=== PATIENT | female | born 1975 | race Caucasian/White ===

== ENCOUNTER 2020-08-19 13:55 | Outpatient (REF) | payer MEDICARE, OTHER, SELFPAY ==
[2020-08-20 11:56] LABS: BV Int Neg Control Negative (Negative); BV Int Pos Control Positive (Positive)
[2020-08-21 21:42] LABS: C. trachomatis RNA TMA NOT DETECTED (NOT DETECTED); N. gonorrhoeae RNA TMA NOT DETECTED (NOT DETECTED)
[2020-08-22 23:57] LABS: HPV mRNA E6/E7 rflx Not Detected (Not Detected)
== END 2020-08-19 13:56 | disposition home or self-care (01) ==
LOC: HO.LAB 13:55
PROVIDERS: PCP Family Medicine; Visit Provider Advanced Practice Midwife
DX: Z12.4 Encounter for screening for malignant neoplasm of cervix (principal); N89.8 Other specified noninflammatory disorders of vagina; L81.9 Disorder of pigmentation, unspecified
CPT/HCPCS: 36415; 87480; 87491; 87510; 87591; 87624; 87660; 88141; 88142; 99202

== ENCOUNTER 2020-08-29 13:57 | Outpatient (REF) | payer MEDICARE, OTHER, SELFPAY | END 2020-08-29 13:58 | disposition home or self-care (01) | LOC: HO.LNP 13:57 | PROVIDERS: PCP Family Medicine; Visit Provider Obstetrics & Gynecology | DX: N90.4 Leukoplakia of vulva (principal) | CPT/HCPCS: 56605 ==

== ENCOUNTER 2020-08-30 10:42 | Outpatient (REF) | payer MEDICARE, OTHER, SELFPAY | END 2020-08-30 10:43 | disposition home or self-care (01) | LOC: HO.LAB 10:42 | PROVIDERS: Visit Provider Obstetrics & Gynecology | DX: N90.4 Leukoplakia of vulva (principal) | CPT/HCPCS: 88305; 88312 ==

== ENCOUNTER → 2020-09-12 12:10 | Outpatient (BNVA) | payer MEDICARE, OTHER, SELFPAY | PROVIDERS: PCP Family Medicine; Visit Provider Obstetrics & Gynecology | DX: Z13.89 Encounter for screening for other disorder (principal) | CPT/HCPCS: Q3014 ==

== ENCOUNTER 2021-11-27 11:57 | Outpatient (REF) | payer MEDICARE, OTHER, SELFPAY ==
[2021-11-27 13:18] LABS: MANUAL DIFF FLAG NO
[2021-11-27 13:30] LABS: Basophils Percent Auto 0.4 % (0-2); Eosinophils Absolute Auto 0.2 X10*3/uL (0.0-0.4); Eosinophils Percent Auto 2.5 % (0-4); Hematocrit 40.7 % (37.0-47.0); Hemoglobin 13.8 g/dl (12.0-16.0); Imm Gran Abs Auto 0.02 X10*3/uL (0.00-0.03); Imm Gran Pct Auto 0.3 % (0.0-0.4); Lymphocytes Absolute Auto 2.2 X10*3/uL (1.2-4.9); Lymphocytes Percent Auto 32.1 % (20-40); Mean Corpuscular HGB Conc 33.9 g/dl (31.0-35.0); Mean Corpuscular Hemoglobin 29.4 pg (27.0-33.0); Mean Corpuscular Volume 86.6 fL (80.0-98.0); Mean Platelet Volume 11.4 fL (9.4-12.3); Monocytes Absolute Auto 0.5 X10*3/uL (0.1-1.2); Monocytes Percent Auto 6.9 % (2-11); Neutrophils Percent Auto 57.8 % (45-73); Platelet Count 227 X10*3/uL (160-400); Red Cell Distribution Width 12.1 % (11.0-16.0); White Blood Count 6.9 X10*3/uL (4.8-10.8)
[2021-11-27 13:52] LABS: Alanine Aminotransferase 33 U/L (0-31); Albumin Level 4.6 g/dL (3.5-5.0); Alkaline Phosphatase 91 U/L (39-117); Anion Gap 13 (12-20); Aspartate Amino Transferase 27 U/L (5-31); Bilirubin Total 0.6 mg/dL (0.0-1.0); Blood Urea Nitrogen 11 mg/dL (9-16); Calcium 9.8 mg/dL (8.4-10.2); Carbon Dioxide 24 mmol/L (22-29); Chloride 106 mmol/L (96-108); Estimated Glomerular Filt Rate > 60; Glucose Random 109 mg/dL (60-115); Potassium 4.5 mmol/L (3.3-5.1); Sodium 138 mmol/L (135-145); Total Protein 7.3 g/dL (6.5-8.0)
== END 2021-11-27 11:58 | disposition home or self-care (01) ==
LOC: HO.LAB 11:57
PROVIDERS: PCP Family Medicine; Referring Provider Family Medicine; Visit Provider Nurse Practitioner
DX: Z01.818 Encounter for other preprocedural examination (principal); K59.04 Chronic idiopathic constipation
CPT/HCPCS: 36415; 80053; 85025; 99202

== ENCOUNTER 2022-09-08 08:52 | Day surgery (SDC) | payer MEDICARE, MEDICAID, SELFPAY ==
--- NOTE | 2022-09-07 11:57 | HO.ANESPROP2 ---
Documented by User: Liliane Zayas NP 09/07/22 11:57 HPI - Anesthesia Eval Consult details Narrative: 47yo F for Colonoscopy PMFSH Active Problems Active Problems: All Active Problems (Updated 09/02/22 @ 14:54 by Larissa Riley, RN) Vaginal itching (Acute) Hypopigmented skin lesion (Acute) Vulvar leukoplakia (Acute) Lichen sclerosus (Acute) Depression with anxiety (Acute) Vitamin B12 deficiency (Acute) Alopecia (Acute) Colon cancer screening (Acute) Chronic idiopathic constipation (Acute) GERD (gastroesophageal reflux disease) (Acute) HTN (hypertension) (Acute) Dyslipidemia (Acute) Diabetes (Acute) Cervical cancer screening (Acute) Past Medical History Medical History (Updated 09/02/22 @ 14:54 by Larissa Riley RN) Cervical cancer screening Diabetes Dyslipidemia GERD (gastroesophageal reflux disease) Hiatal hernia HTN (hypertension) Menometrorrhagia Osteoarthritis Family History Family History Father Diabetes HTN (hypertension) Maternal Grandfather Prostate cancer Surgical History Surgical History (Updated 09/02/22 @ 14:54 by Larissa Riley RN) History of section History of esophagogastroduodenoscopy (EGD) Tubal ligation status Social History Social History Alcohol intake: never Patient Tobacco Use Status: Never used Tobacco Gender identity: Female Meds Allergies Allergy/AdvReac Type Severity Reaction Status Date / Time No Known Allergies Allergy Verified 09/02/22 14:54 Home Medications Medication Instructions Recorded Confirmed Last Taken Type acetaminophen 650 mg 650 mg PO Q12H 08/19/20 Unknown History tablet,extended release clotrimazole 1 % topical cream 1 appl topical BID 08/19/20 09/02/22 Unknown History ergocalciferol (vitamin D2) 10 mcg 10 mcg PO DAILY 08/19/20 09/02/22 Unknown History (400 unit) tablet fluoxetine 20 mg tablet 20 mg PO DAILY 08/19/20 09/02/22 Unknown History hydrocortisone 1 % topical cream 1 appl topical QID PRN Rash 08/19/20 09/02/22 Unknown History hydroxyzine HCl 25 mg tablet 25 mg PO BID PRN as directed 08/19/20 09/02/22 Unknown History lisinopril 30 mg tablet 30 mg PO DAILY 08/19/20 09/02/22 Unknown History omeprazole 20 mg tablet,delayed 20 mg PO DAILY 08/19/20 09/02/22 Unknown History release tizanidine 2 mg capsule 2 mg PO BEDTIME 08/19/20 09/02/22 Unknown History trazodone 100 mg tablet 100 mg PO BEDTIME 08/19/20 09/02/22 Unknown History cholecalciferol (vitamin D3) 25 1 tab PO DAILY 09/02/22 09/02/22 Unknown History mcg (1,000 unit) capsule (Vitamin D3) metformin 500 mg tablet 1 tab PO QPM 09/02/22 09/02/22 Unknown History naloxone 4 mg/actuation nasal spray intranasal 09/02/22 Unknown History Exam Exam Date and Time: September 07, 2022 115 Assessment and Plan Assessment Anesthesia Assessment: Chart Reviewed Documented by User: Garland Urena MD 09/08/22 17:54 [facility] Past Medical History Medical History (Updated 09/02/22 @ 14:54 by Larissa Riley, RK) Cervical cancer screening Diabetes Dyslipidemia GERD (gastroesophageal reflux disease) Hiatal hernia HTN (hypertension) Menometrorrhagia Osteoarthritis Functional capacity: independent ambulation Family History Family History Father Diabetes HTN (hypertension) Maternal Grandfather Prostate cancer Family history of problems with anesthesia: No Surgical History Surgical History (Updated 09/02/22 @ 14:54 by Larissa Riley RN) History of section History of esophagogastroduodenoscopy (EGD) Tubal ligation status History of Problems with Anesthesia: No Social History Social History Alcohol intake: never Patient Tobacco Use Status: Never used Tobacco Gender identity: Female Meds Allergies Allergy/AdvReac Type Severity Reaction Status Date / Time No Known Allergies Allergy Verified 09/02/22 14:54 Home Medications Medication Instructions Recorded Confirmed Last Taken Type acetaminophen 650 mg 650 mg PO Q12H 08/19/20 Unknown History tablet,extended release clotrimazole 1 % topical cream 1 appl topical BID 08/19/20 09/02/22 Unknown History ergocalciferol (vitamin D2) 10 mcg 10 mcg PO DAILY 08/19/20 09/02/22 Unknown History (400 unit) tablet fluoxetine 20 mg tablet 20 mg PO DAILY 08/19/20 09/02/22 Unknown History hydrocortisone 1 % topical cream 1 appl topical QID PRN Rash 08/19/20 09/02/22 Unknown History hydroxyzine HCl 25 mg tablet 25 mg PO BID PRN as directed 08/19/20 09/02/22 Unknown History lisinopril 30 mg tablet 30 mg PO DAILY 08/19/20 09/02/22 Unknown History omeprazole 20 mg tablet,delayed 20 mg PO DAILY 08/19/20 09/02/22 Unknown History release tizanidine 2 mg capsule 2 mg PO BEDTIME 08/19/20 09/02/22 Unknown History trazodone 100 mg tablet 100 mg PO BEDTIME 08/19/20 09/02/22 Unknown History cholecalciferol (vitamin D3) 25 1 tab PO DAILY 09/02/22 09/02/22 Unknown History mcg (1,000 unit) capsule (Vitamin D3) metformin 500 mg tablet 1 tab PO QPM 09/02/22 09/02/22 Unknown History naloxone 4 mg/actuation nasal spray intranasal 09/02/22 Unknown History Exam Airway Mallampati Class: III Neck ROM: Full Loose/Missing/Broken Teeth: Yes Heart: S1,S2 Lungs: b/l breath sounds Assessment and Plan Assessment Anesthesia Assessment: Anesthesia Plan Discussed Final Anesthetic Review Family History of Problems with Anesthesia: No History of Problems with Anesthesia: No NPO: Yes ASA Class: II Final Preanesthetic Review: Meds/Allgs Chart Reviewed, Consent Obtained/Reviewed and Anes Risks/Benef Reviewed Patient Risk: Intermediate Procedure Risk: Intermediate Anesthetic Plan Anesthetic Plan: MAC: Disposition: Standard PACU
--- NOTE | 2022-09-08 09:38 | MHC.SHP ---
Pre-Procedural Eval Section A Date of Service: 09/08/22 The patient is an INPATIENT: No The History & Physical has been completed within 30 days and I have reviewed it.: No Section B Chief Complaint: screening, chronic idiopathic constipation Relevant Family History (Specify if Yes): No Relevant Social History: None Present Medications: see Short Stay Collaborative assessment Medical History: Significant History (Diabetes Hypertension High cholesterol Generalized osteoarthritis of multiple sites Vitamin B12 deficiency Depression/anxiety GERD Menometrorrhagia) History of Previous Operations: Relevant previous surgery/procedure and date(s) (hx of EGD, C section and tubal ligation) Allergies: Allergies Allergy/AdvReac Type Severity Reaction Status Date / Time No Known Allergies Allergy Verified 09/02/22 14:54 Review of Systems Sugical H&P ROS: Negative: Constitution, Cardiovascular, Respiratory and Gastrointestinal Exam Surgical H&P Exam: Normal: Heart, Normal: Lungs, Normal: Extremities and Normal: Abdomen Plan Diagnosis/Plan: Unchanged I have reviewed the history and physical and performed a pertinent physical examination on my patient. No changes have occurred unless specified. Time Spent With Patient Time: Total time managing care of this patient today ____ minutes.
[2022-09-08 09:44] LABS: Glucose, Whole Blood 198 mg/dL (60-115)
[2022-09-08 09:45] VITALS: BMI 32.4
[2022-09-08 09:49] VITALS: BP 133/90; PULSE 65; RESP 16; TEMP 36.3; O2SAT 97
[2022-09-08] MEDS: Lactated Ringers 1,000 ML 100 ML IVCONT (09:53)
--- NOTE | 2022-09-08 10:27 | PM.OP ---
Brief Operative Note Date of Service: 09/08/22 Pre-op diagnosis: Colon cancer screening (1st colonoscopy) Post-op diagnosis: other (COLON POLYPS, DIVERTICULOSIS, HEMORRHOIDS) Procedure: COLONOSCOPY TO CECUM WITH BIOPSIES AND SNARE POLYPECTOMY Surgeon: Reuben Walls MD Anesthesia: MAC Was an Commercial Center Manager used for this Procedure?: Yes Commercial Center Manager: Dianne Tucker Estimated blood loss (mL): 0 Pathology: other ( A :Cecal Polyp B:Random Biopsy right colon for microscopic colitis) Condition: stable Disposition: PACU
--- NOTE | 2022-09-08 10:27 | W.PM.OPN ---
Operative Note Operative Note Date of Service: 09/08/22 Narrative: Pre-op diagnosis: Colon cancer screening (1st colonoscopy) Post-op diagnosis:?other (COLON POLYPS, DIVERTICULOSIS, HEMORRHOIDS) Surgeon: Reuben Walls MD Anesthesia:?MAC COLONOSCOPY TILL CECUM WITH BIOPSIES AND SNARE POLYPECTOMY Consent: Indications for the procedure and potential complications of bleeding, perforation, reaction to medications and missed diagnosis were discussed with the patient and informed consent was obtained. Instrument: Olympus PCF H 190 L variable stiffness pediatric colonoscope Monitoring: Vital signs and clinical assessment, intermittent blood pressure monitoring, continuous EKG monitoring, Pulse oximetry and Carbon Dioxide monitoring were done throughout the procedure. Colon withdrawl time was 30 minutes. Procedure: The patient was placed in the left lateral decubitis position and pre-procedure medications were administered. After a digital rectal examination of the ano-rectum, the video colonoscope was inserted into the rectum and advanced through the colon to the cecum. The colonoscope was slowly withdrawn in a retrograde panoramic fashion and the colon mucosa was carefully examined including a retroflexed view of the rectum. Findings and interventions are described below. Procedure Difficulty: Without difficulty Findings: Terminal Ileum: Not evaluated Cecum: Three 8 to 12 mm sessile polyps - removed with a hot snare and cold bx Ascending Colon: Normal Transverse Colon: Normal Descending Colon: Moderate diverticulosis Sigmoid Colon: Moderate diverticulosis Rectum: Normal Ano-rectum: Moderate internal hemorrhoids Colon preparation: Good after copious irrigation Impression and Post Procedure Diagnosis: Colonoscopy Findings: Three small to medium sized polyps removed Moderate diverticulosis seen in the left colon Moderate hemorrhoids on retroflexed exam. Plan: Await pathology results Patient has an appointment on 09/22/22 in the GI Clinic with Beatrice Nichols NP. Repeat Colonoscopy interval based on path results - in 3 years if polyps are adenomatous and 10 years if polyps are hyperplastic. Above findings were reviewed with the patient and colon polyps and diverticulosis handouts were given in the discharge area
[2022-09-08 11:23] VITALS: BP 104/66; PULSE 77; RESP 15; TEMP 36.8; O2SAT 98
[2022-09-08 11:38] VITALS: BP 110/73; PULSE 69; RESP 18; TEMP 37.1; O2SAT 98
== END 2022-09-08 12:15 | disposition home or self-care (01) ==
PROVIDERS: PCP Family Medicine; Visit Provider Internal Medicine Gastroenterology
PROC: 0DJD8ZZ Inspection of Lower Intestinal Tract, Via Natural or Artificial Opening Endoscopic (ICD-10-PCS; CPT 45378; principal; 2022-09-08 10:20)
DX: Z12.11 Encounter for screening for malignant neoplasm of colon (principal); D12.0 Benign neoplasm of cecum; K57.30 Diverticulosis of large intestine without perforation or abscess without bleeding; K64.8 Other hemorrhoids; K59.04 Chronic idiopathic constipation; K21.9 Gastro-esophageal reflux disease without esophagitis; I10 Essential (primary) hypertension; E11.9 Type 2 diabetes mellitus without complications; E78.00 Pure hypercholesterolemia, unspecified; M15.9 Polyosteoarthritis, unspecified; F41.8 Other specified anxiety disorders; Z79.84 Long term (current) use of oral hypoglycemic drugs; Z79.899 Other long term (current) drug therapy
CPT/HCPCS: 45385; 45380; 82947; 88305

== ENCOUNTER 2022-09-22 10:19 | Outpatient (REF) | payer MEDICARE, MEDICAID, SELFPAY ==
[2022-09-22 11:06] LABS: MANUAL DIFF FLAG NO
[2022-09-22 11:59] LABS: Basophils Percent Auto 0.6 % (0-2); Eosinophils Absolute Auto 0.2 X10*3/uL (0.0-0.4); Eosinophils Percent Auto 3.5 % (0-4); Hematocrit 41.8 % (37.0-47.0); Hemoglobin 14.2 g/dl (12.0-16.0); Imm Gran Abs Auto 0.02 X10*3/uL (0.00-0.03); Imm Gran Pct Auto 0.3 % (0.0-0.4); Lymphocytes Absolute Auto 2.2 X10*3/uL (1.2-4.9); Lymphocytes Percent Auto 35.2 % (20-40); Mean Corpuscular Volume 85.3 fL (80.0-98.0); Mean Platelet Volume 11.9 fL (9.4-12.3); Monocytes Absolute Auto 0.4 X10*3/uL (0.1-1.2); Monocytes Percent Auto 6.6 % (2-11); Neutrophils Absolute Auto 3.3 x10*3/uL (2.0-8.3); Neutrophils Percent Auto 53.8 % (45-73); Platelet Count 231 X10*3/uL (160-400); White Blood Count 6.2 X10*3/uL (4.8-10.8)
[2022-09-22 12:31] LABS: Alanine Aminotransferase 52 U/L (0-31); Albumin Level 4.6 g/dL (3.5-5.0); Alkaline Phosphatase 135 U/L (39-117); Anion Gap 17 (12-20); Aspartate Amino Transferase 28 U/L (5-31); Bilirubin Total 0.5 mg/dL (0.0-1.0); Blood Urea Nitrogen 10 mg/dL (9-16); Calcium 9.7 mg/dL (8.4-10.2); Carbon Dioxide 23 mmol/L (22-29); Chloride 104 mmol/L (96-108); Cholesterol 229 mg/dL; Estimated Glomerular Filt Rate > 60; Glucose Random 248 mg/dL (60-115); HDL Cholesterol 44 mg/dL; LDL Cholesterol Calculated 152 mg/dl; Potassium 4.8 mmol/L (3.3-5.1); Sodium 139 mmol/L (135-145); Total Protein 7.2 g/dL (6.5-8.0); Triglycerides 167 mg/dL
[2022-09-22 12:47] LABS: TSH reflex Free T4 2.16 uIU/mL (0.32-4.0)
[2022-09-22 13:25] LABS: Estimated Average Glucose 192 mg/dL; Hemoglobin A1c % 8.3 %
== END 2022-09-22 10:20 | disposition home or self-care (01) ==
LOC: HO.LAB 10:19
PROVIDERS: PCP Family Medicine; Visit Provider Nurse Practitioner
DX: K59.04 Chronic idiopathic constipation (principal); K21.9 Gastro-esophageal reflux disease without esophagitis; D12.6 Benign neoplasm of colon, unspecified; E78.5 Hyperlipidemia, unspecified; I10 Essential (primary) hypertension
CPT/HCPCS: 36415; 80053; 80061; 83036; 84443; 85025; 99212

== ENCOUNTER 2023-02-03 13:13 | Outpatient (REF) | payer MEDICARE, MEDICAID, SELFPAY ==
[2023-02-06 00:59] LABS: HPV mRNA E6/E7 rflx Not Detected (Not Detected)
== END 2023-02-03 13:14 | disposition home or self-care (01) ==
LOC: HO.LNP 13:13
PROVIDERS: PCP Family Medicine; Visit Provider Obstetrics & Gynecology
DX: Z12.4 Encounter for screening for malignant neoplasm of cervix (principal); Z11.51 Encounter for screening for human papillomavirus (HPV); N95.0 Postmenopausal bleeding; L90.0 Lichen sclerosus et atrophicus
CPT/HCPCS: 87624; 88142; 99212

== ENCOUNTER 2023-02-09 13:30 | Outpatient (REF) | payer MEDICARE, MEDICAID, SELFPAY ==
--- NOTE | ~2023-02-09 | US_ITS ---
EXAM: Pelvic Ultrasound CLINICAL INDICATION: Postmenopausal bleeding COMPARISON: Pelvic ultrasound 01/20/2012 TECHNIQUE: The pelvis was evaluated using transabdominal and transvaginal imaging. FINDINGS: The uterus measures 7.7 x 4.2 x 5.9 cm in longitudinal by AP by transverse dimension. The endometrial stripe is not thickened and measures 0.3 cm. A small amount of fluid is noted within the cervical canal. Nabothian cyst appreciated within the cervix. The left ovary measures approximately 2.1 x 1.2 x 1.5 cm and is normal. The right ovary measures approximately 3.3 x 1.7 x 1.7 cm and contains a suspected 1.8 cm cyst. There is no free fluid in the pelvis. US/US pelvic and transvaginal IMPRESSION: 1. Normal thickness endometrial stripe. 2. Small amount of fluid is noted within the cervical canal. 3. Suspected 1.8 cm right ovarian cyst.
== END 2023-02-09 13:31 | disposition home or self-care (01) ==
LOC: HO.US 13:30
PROVIDERS: PCP Family Medicine; Visit Provider Obstetrics & Gynecology
DX: N95.0 Postmenopausal bleeding (principal)
CPT/HCPCS: 76830; 76856

== ENCOUNTER 2023-02-19 12:15 | Outpatient (REF) | payer MEDICARE, MEDICAID, SELFPAY ==
--- NOTE | ~2023-02-19 | MM_ITS ---
EXAMINATION: MM SCREENING DIGITAL BREAST TOMOSYNTHESIS, BILATERAL CLINICAL INFORMATION: Screening. Asymptomatic. The lifetime risk of breast cancer based on the Tyrer-Cuzick Model is 7%. COMPARISON: Mammography: This study is compared with prior exams dating back to 2013. TECHNIQUE: Digital breast tomosynthesis is performed in both the craniocaudal and mediolateral oblique views along with computer-aided detection (CAD). Synthesized 2D images are generated from the tomosynthesis. FINDINGS: There are scattered areas of fibroglandular density (ACR BI-RADS breast composition Category b). There are no significant masses, abnormal calcifications, or other abnormalities. MM/MM tomosynthesis screening BI IMPRESSION: No mammographic evidence of malignancy. ASSESSMENT: BI-RADS BI-RADS 1 - Negative RECOMMENDATION: Routine annual mammography screening. 1 year F/U This examination should not preclude the clinical evaluation of a suspicious palpable abnormality. This patient's information was entered into a reminder system with a target due date for their next mammogram.
== END 2023-02-19 12:16 | disposition home or self-care (01) ==
LOC: HO.MAMMO 12:15
PROVIDERS: PCP Family Medicine; Visit Provider Obstetrics & Gynecology
DX: Z12.31 Encounter for screening mammogram for malignant neoplasm of breast (principal)
CPT/HCPCS: 77063; 77067

== ENCOUNTER → 2023-02-19 13:00 | Outpatient (BNV) | payer MEDICARE, MEDICAID, SELFPAY | PROVIDERS: PCP Family Medicine; Visit Provider Radiology Diagnostic Radiology | DX: Z12.31 Encounter for screening mammogram for malignant neoplasm of breast (principal) | CPT/HCPCS: 77063; 77067 ==

== ENCOUNTER 2023-02-24 | Outpatient (REF) | payer MEDICARE, MEDICAID, SELFPAY ==
[2023-02-24 12:02] LABS: Estimated Average Glucose 229 mg/dL; Hemoglobin A1c % 9.6 %
[2023-02-24 12:32] LABS: Creatinine Urine 280.11 mg/dL; Microalbum/Creatinine Ratio Ur 9.2 ug/mg cr
[2023-02-24 12:40] LABS: Alanine Aminotransferase 33 U/L (0-31); Albumin Level 4.1 g/dL (3.5-5.0); Alkaline Phosphatase 130 U/L (39-117); Anion Gap 14 (12-20); Aspartate Amino Transferase 20 U/L (5-31); Bilirubin Total 0.7 mg/dL (0.0-1.0); Blood Urea Nitrogen 11 mg/dL (9-16); Calcium 9.4 mg/dL (8.4-10.2); Carbon Dioxide 21 mmol/L (22-29); Chloride 106 mmol/L (96-108); Cholesterol 207 mg/dL; Estimated Glomerular Filt Rate > 60; Glucose Random 247 mg/dL (60-115); HDL Cholesterol 44 mg/dL; LDL Cholesterol Calculated 134 mg/dl; Potassium 4.3 mmol/L (3.3-5.1); Sodium 137 mmol/L (135-145); TSH reflex Free T4 1.06 uIU/mL (0.32-4.0); Triglycerides 148 mg/dL
[2023-02-24 13:34] LABS: Folate 8.4 ng/mL (> or = 4.0); Vitamin B12 1113 pg/mL (200-900)
== END 2023-02-24 00:01 | disposition home or self-care (01) ==
LOC: HO.HHCL
PROVIDERS: Visit Provider Family Medicine
DX: E11.9 Type 2 diabetes mellitus without complications (principal); I10 Essential (primary) hypertension
CPT/HCPCS: 36415; 80053; 80061; 82043; 82607; 82746; 83036; 84443

== ENCOUNTER 2023-03-26 10:12 | Outpatient (REF) | payer MEDICARE, MEDICAID, SELFPAY ==
[2023-03-26 11:21] LABS: MANUAL DIFF FLAG NO
[2023-03-26 11:44] LABS: Basophils Absolute Auto 0.1 X10*3/uL (0.0-0.2); Basophils Percent Auto 0.7 % (0-2); Eosinophils Absolute Auto 0.2 X10*3/uL (0.0-0.4); Eosinophils Percent Auto 2.3 % (0-4); Hematocrit 42.6 % (37.0-47.0); Hemoglobin 14.3 g/dl (12.0-16.0); Imm Gran Abs Auto 0.01 X10*3/uL (0.00-0.03); Imm Gran Pct Auto 0.1 % (0.0-0.4); Lymphocytes Absolute Auto 2.2 X10*3/uL (1.2-4.9); Lymphocytes Percent Auto 30.2 % (20-40); Mean Corpuscular HGB Conc 33.6 g/dl (31.0-35.0); Mean Corpuscular Hemoglobin 29.2 pg (27.0-33.0); Mean Corpuscular Volume 87.1 fL (80.0-98.0); Mean Platelet Volume 11.9 fL (9.4-12.3); Monocytes Absolute Auto 0.4 X10*3/uL (0.1-1.2); Monocytes Percent Auto 5.9 % (2-11); Neutrophils Absolute Auto 4.5 x10*3/uL (2.0-8.3); Neutrophils Percent Auto 60.8 % (45-73); Platelet Count 248 X10*3/uL (160-400); Red Blood Count 4.89 X10*6/uL (4.20-5.50); Red Cell Distribution Width 12.5 % (11.0-16.0); White Blood Count 7.4 X10*3/uL (4.8-10.8)
[2023-03-26 12:44] LABS: Alanine Aminotransferase 25 U/L (0-31); Albumin Level 4.5 g/dL (3.5-5.0); Alkaline Phosphatase 98 U/L (39-117); Anion Gap 11 (12-20); Aspartate Amino Transferase 18 U/L (5-31); Bilirubin Total 0.3 mg/dL (0.0-1.0); Blood Urea Nitrogen 15 mg/dL (9-16); Carbon Dioxide 28 mmol/L (22-29); Chloride 105 mmol/L (96-108); Estimated Glomerular Filt Rate > 60; Glucose Random 123 mg/dL (60-115); Potassium 4.5 mmol/L (3.3-5.1); Sodium 139 mmol/L (135-145); Total Protein 7.5 g/dL (6.5-8.0)
[2023-03-30 17:08] LABS: Lyme Abs Screen <0.90 index
[2023-04-02 03:03] LABS: Aldolase 3.7 U/L (<=8.1)
== END 2023-03-26 10:13 | disposition home or self-care (01) ==
LOC: HO.HHCL 10:12
PROVIDERS: Visit Provider Family Medicine
DX: R51.9 Headache, unspecified (principal)
CPT/HCPCS: 36415; 80053; 82085; 82550; 85025; 86617; 86618

== ENCOUNTER 2023-05-05 13:40 | Outpatient (REF) | payer MEDICARE, MEDICAID, SELFPAY | END 2023-05-05 13:41 | disposition home or self-care (01) | LOC: HO.LNP 13:40 | PROVIDERS: PCP Family Medicine; Visit Provider Obstetrics & Gynecology | DX: N90.4 Leukoplakia of vulva (principal); N95.0 Postmenopausal bleeding; N83.209 Unspecified ovarian cyst, unspecified side; L90.0 Lichen sclerosus et atrophicus | CPT/HCPCS: 56605; 88305; 88312; 99212 ==

== ENCOUNTER 2023-05-05 13:40 | Outpatient (AMB) | payer MEDICARE, MEDICAID, SELFPAY ==
--- NOTE | 2023-05-05 13:56 | MHC.OFFVIS ---
Intake Vital Signs 05/05/23 14:03 Height 5 ft 4 in Weight 163 lb 2.273 oz BMI 28.0 BP 120/76 Intake Visit Reasons: vulva bx and u/s follow up Surgical Garment Inspector Required: No Information Interpreted: non-clinical & clinical Director Of Acquisitions: Director Of Acquisitions Present (Jodi BAE) Accompanied by: Self / Same As Patient Allergies No Known Allergies Allergy (Verified 05/05/23 14:04) Post menopausal: Yes HPI HPI Comments History of Present Illness Details Presenting for posterior fourchette ulcer biopsy and follow-up ultrasound regarding postmenopausal bleeding. The patient did not have any additional episodes of postmenopausal bleeding other than initial 1. Pelvic ultrasound showed the following: The uterus measures 7.7 x 4.2 x 5.9 cm in longitudinal by AP by transverse dimension. The endometrial stripe is not thickened and measures 0.3 cm. A small amount of fluid is noted within the cervical canal. Nabothian cyst appreciated within the cervix. The left ovary measures approximately 2.1 x 1.2 x 1.5 cm and is normal. The right ovary measures approximately 3.3 x 1.7 x 1.7 cm and contains a suspected 1.8 cm cyst. There is no free fluid in the pelvis. [facility] Medical History Hiatal hernia Cervical cancer screening Dyslipidemia Osteoarthritis Diabetes Menometrorrhagia GERD (gastroesophageal reflux disease) HTN (hypertension) Surgical History History of esophagogastroduodenoscopy (EGD) History of section Tubal ligation status Family History Father Diabetes HTN (hypertension) Maternal Grandfather Prostate cancer Social History Alcohol intake: never Patient Tobacco Use Status: Never used Tobacco Gender identity: Female Female Reproductive History Menstrual Age of Menarche: 7 Physical Exam Vital Signs: Last Vital Signs BP 120/76 05/05/23 14:03 BMI result Body Mass Index 28.0 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 Preop dx: Posterior fourchette ulcer Op: Posterior fourchette ulcer biopsy Post op: Same Anesthesia: Lidocaine 1% 3cc used Procedure: Using betadine the area was scrubbed and draped in the usual manner. 3 cc of lidocaine was used for anesthesia at the left vulvar lesion area ; using punch biopsy forceps and pickup the Posterior fourchette ulcer was biopsied. Pressure was used for hemostasis. The patient tolerated the procedure well. Discharge Instructions: The patient was instructed to schedule an appointment in 2 weeks for follow-up and to call if temp>100.4, area of the biopsy redness or pain, nausea/vomiting. This note was generated with a voice recognition program. Some errors may have been overlooked during the review of this note. Sometimes these errors may affect the content or meaning of a given sentence. 35623-Gsmxpa of Vulva/Perineum Procedure code (CPT) selection complete Assessment & Plan Assessment & Plan (1) Postmenopausal bleeding: Code(s): N95.0 - Postmenopausal bleeding Plan: Discussed with the patient the results of the pelvic ultrasound showing an endometrial stripe thickness of 3 mm. Explained to the patient with an endometrial stripe of 4 mm &/or less, there is a high negative predictive value in detecting endometrial pathology including endometrial hyperplasia, polyps or malignancy. Therefore, there is no indication for endometrial sampling. Discussed with the patient the sensitivity, specificity, and positive and the negative predictive value of using ultrasound in detecting endometrial pathology. The patient was instructed to call if bleeding recurs, will proceed with endometrial sampling out endometrial pathology. All questions were answered and the patient verbalized understanding and agreed with the plan. (2) Ovarian cyst: Code(s): N83.209 - Unspecified ovarian cyst, unspecified side Plan: Discussed with the patient the ovarian cyst by ultrasound. Discussed with the patient the Ultrasound findings, the main limitation of transvaginal ultrasonography alone as a diagnostic tool to distinguish benign from malignant masses relates to its lack of specificity and low positive predictive value for cancer. The differential diagnosis discussed with the patient includes the following but not limited to: benign and malignant gynecological and non-gynecological causes. Discussed with the patient options of treatment , including laparoscopy ovarian salpingo-oophorectomy vs. expectant management with repeat US in repeating pelvic US in 3-6 months from previous US. If the ovarian cyst is persistent larger and / or changes in Ultrasound appearance & became complex looking, will refer to gynecologic Oncology. All pros, cons, risks and benefits of each approach were discussed with the patient including but not limited to a delay in the diagnosis and treatment of ovarian cancer affecting the prognosis; The patient decided to go ahead with expectant management. Ultrasound of the pelvis ordered in 3 my, instructions given the patient to schedule in ultrasound follow-up appointment in 3 months. 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
[2023-05-05 14:03] VITALS: BP 120/76; BMI 28.0
== END 2023-05-05 14:41 | disposition home or self-care (01) ==
PROVIDERS: PCP Family Medicine; Visit Provider Obstetrics & Gynecology
DX: N95.0 Postmenopausal bleeding (principal); N83.201 Unspecified ovarian cyst, right side; L90.0 Lichen sclerosus et atrophicus
CPT/HCPCS: 56605; 99213

== ENCOUNTER 2023-06-02 14:34 | Outpatient (REF) | payer MEDICARE, MEDICAID, SELFPAY ==
[2023-06-03 12:43] LABS: CA-125 9 U/mL (<35)
== END 2023-06-02 14:35 | disposition home or self-care (01) ==
LOC: HO.LAB 14:34
PROVIDERS: PCP Family Medicine; Visit Provider Obstetrics & Gynecology
DX: N90.4 Leukoplakia of vulva (principal); N83.209 Unspecified ovarian cyst, unspecified side; Z98.890 Other specified postprocedural states
CPT/HCPCS: 36415; 86304; 99212

== ENCOUNTER 2023-06-02 14:34 | Outpatient (AMB) | payer MEDICARE, MEDICAID, SELFPAY ==
--- NOTE | 2023-06-02 14:47 | MHC.OFFVIS ---
Intake Vital Signs 06/02/23 14:48 Height 5 ft 4 in Weight 163 lb 2.273 oz BMI 28.0 BP 110/60 Intake Visit Reasons: Biopsy Results Receiving Checker Required: No Information Interpreted: non-clinical & clinical Accompanied by: Self / Same As Patient Allergies No Known Allergies Allergy (Verified 06/02/23 14:48) Post menopausal: Yes HPI HPI Comments History of Present Illness Details Presenting for follow-up post vulvar biopsy with no complaints. Pathology showed the following: Vulva, biopsy: Lichen sclerosus; negative for fungi; negative for dysplasia. [facility] Medical History Hiatal hernia Cervical cancer screening Dyslipidemia Osteoarthritis Diabetes Menometrorrhagia GERD (gastroesophageal reflux disease) HTN (hypertension) Surgical History History of esophagogastroduodenoscopy (EGD) History of section Tubal ligation status Family History Father Diabetes HTN (hypertension) Maternal Grandfather Prostate cancer Social History Alcohol intake: never Patient Tobacco Use Status: Never used Tobacco Gender identity: Female Female Reproductive History Menstrual Age of Menarche: 7 Review of Systems Const All systems reviewed & are unremarkable except as noted in HPI and below Reports as per HPI and Reports no additional complaints GI Reports no additional complaints Reports no additional complaints Physical Exam Vital Signs: Last Vital Signs BP 110/60 06/02/23 14:48 BMI result Body Mass Index 28.0 Assessment & Plan Assessment & Plan (1) Lichen sclerosus: Code(s): L90.0 - Lichen sclerosus et atrophicus Plan: Discussed with the patient the pathology results showing lichen sclerosis. Explained to the patient that Lichen sclerosus refers to a benign, chronic, progressive dermatologic condition characterized by marked inflammation, epithelial thinning accompanied by pruritus and pain. In addition, discussed with the patient that there is a small increased risk of squamous cell cancer of the vulva in patients with lichen sclerosus. Adequate treatment of the disease seems to be associated with a reduced risk of development of neoplasia. Instructed the patient to schedule an appointment in a year to examine the affected area, with possible biopsy of suspicious lesions, in addition explained to the patient that she should look at the skin of the affected area and touch with fingertips monthly to search for thickened lumps or sores that do not heal & to report such findings for inspection & possible biopsy to rule out vulvar cancer Will prescribe Clobetasol propionate 0.05% ointment to be applied daily at night for 6 to 12 weeks, followed by maintenance therapy two to three times per week . Medications: Refilled clobetasol 0.05% After the initial application for 6 weeks continue using the medication for maintenance therapy 2-3 times per week 1 appl topical BEDTIME 6 weeks 45 grams 0RF Coding Level of Care Code Est Pt Level 3 (73079) Diagnoses Lichen sclerosus L90.0
[2023-06-02 14:48] VITALS: BP 110/60; BMI 28.0
== END 2023-06-02 15:06 | disposition home or self-care (01) ==
PROVIDERS: PCP Family Medicine; Visit Provider Obstetrics & Gynecology
DX: L90.0 Lichen sclerosus et atrophicus (principal)
CPT/HCPCS: 99213

== ENCOUNTER 2023-07-12 13:59 | Outpatient (REF) | payer MEDICARE, SELFPAY ==
--- NOTE | ~2023-07-12 | XR_ITS ---
EXAMINATION: XR CHEST CLINICAL INFORMATION: Reason for Exam COUGH COMPARISON: Chest radiograph 06/03/2017 TECHNIQUE: 2 views of the chest FINDINGS: Lines and tubes: None. Clear lungs. Mild asymmetric elevation of the right hemidiaphragm. No pleural effusion. No pneumothorax. Unchanged cardiomediastinal silhouette. XR/XR chest 2V IMPRESSION: 1. Clear lungs. 2. Mild asymmetric elevation of the right hemidiaphragm.
== END 2023-07-12 14:00 | disposition home or self-care (01) ==
LOC: HO.XRAY 13:59
PROVIDERS: PCP Family Medicine; Visit Provider Emergency Medicine
DX: R05.9 Cough, unspecified (principal)
CPT/HCPCS: 71046

== ENCOUNTER 2023-08-25 12:52 | Outpatient (REF) | payer MEDICARE, MEDICAID, SELFPAY ==
[2023-08-25 16:32] LABS: Alanine Aminotransferase 37 U/L (0-31); Albumin Level 4.7 g/dL (3.5-5.0); Alkaline Phosphatase 121 U/L (39-117); Aspartate Amino Transferase 24 U/L (5-31); Bilirubin Direct 0.2 mg/dL (0.0-0.5); Bilirubin Total 0.7 mg/dL (0.0-1.0); Cholesterol 165 mg/dL (<200); HDL Cholesterol 50 mg/dL (>40); LDL Cholesterol Calculated 95 mg/dL (<100); Total Protein 7.8 g/dL (6.5-8.0); Triglycerides 102 mg/dL (<150)
[2023-08-27 02:19] LABS: Lyme Abs Screen <0.90 index
== END 2023-08-25 12:53 | disposition home or self-care (01) ==
LOC: HO.HHCL 12:52
PROVIDERS: Family Medicine; Visit Provider Family Medicine
DX: E11.9 Type 2 diabetes mellitus without complications (principal); R51.9 Headache, unspecified
CPT/HCPCS: 36415; 80061; 80076; 86617; 86618

== ENCOUNTER 2023-08-27 14:17 | Outpatient (AMB) | payer MEDICARE, MEDICAID, SELFPAY ==
[2023-08-27 14:25] VITALS: BP 142/110; PULSE 111; O2SAT 98; BMI 28.2
--- NOTE | 2023-08-27 14:25 | A.OFFVIS_ITS ---
Intake Vital Signs 08/27/23 14:25 Height 5 ft 4 in Weight 164 lb 3.91 oz BMI 28.2 BP 142/110 H Blood Pressure Location Rt brachial Position Sitting Pulse 111 H Pulse Source Doppler Pulse Oximetry (%) 98 Oxygen Delivery Method Room Air Intake Visit Reasons: Cough Allergies No Known Allergies Allergy (Verified 08/27/23 14:29) HPI Cough HPI Details 48-year-old lady, nonsmoker, with underl valeriy history of environmental allergies and chronic cough since April of 2023 referred for pulmonary evaluation. Patient states that her cough gets worse at night and is nonproductive. She does complain of multiple environmental allergies. She denies having allergy testing. Patient does have a dog. She has been employed with no exposure to industrial dusts. Patient also complains of significant GERD that is now better controlled on twice a day omeprazole. She does have family history of asthma in her son. [facility] Medical History Hiatal hernia Cervical cancer screening Dyslipidemia Osteoarthritis Diabetes Menometrorrhagia GERD (gastroesophageal reflux disease) HTN (hypertension) Surgical History History of esophagogastroduodenoscopy (EGD) History of section Tubal ligation status Family History Father Diabetes HTN (hypertension) Maternal Grandfather Prostate cancer Social History Alcohol intake: never Patient Tobacco Use Status: Never used Tobacco Gender identity: Female Female Reproductive History Menstrual Age of Menarche: 7 Review of Systems Const Denies daytime sleepiness, Denies excessive sweating, Denies fatigue, Denies fever(s), Denies lethargy, Denies malaise, Denies night sweats, Denies snoring and Denies weight loss Eyes Denies blurry vision and Denies itchy eyes ENT Denies nasal congestion, Denies post nasal drip, Denies sinus pain, Denies sinus pressure and Denies other ( Thrush) Card Denies chest pain, Denies pedal edema, Denies dyspnea, Denies orthopnea and Denies paroxysmal nocturnal dyspnea Resp Reports cough, Denies hemoptysis, Denies excessive phlegm production, Denies dyspnea, Denies snoring and Denies wheezing GI Denies abdominal pain and Denies heartburn Musc Denies myalgias, Denies arthralgias and Denies joint swelling Skin/Breast Denies rash Neuro Denies memory loss and Denies seizure-like activity Psych Denies abnormal sleep pattern, Denies anxiety and Denies memory loss Endo Denies excessive sweating, Denies fatigue and Denies heat intolerance Grant/Lymph Denies easy bruising Aller/Immun Denies itchy eyes, Denies seasonal rhinorrhea and Denies wheezing Physical Exam Vital Signs: Last Vital Signs Pulse 111 H 08/27/23 14:25 BP 142/110 H 08/27/23 14:25 Pulse Ox 98 08/27/23 14:25 Oxygen Delivery Method Room Air 08/27/23 14:25 BMI result Body Mass Index 28.2 Const General: no acute distress and alert Nutritional Appearance: not obese Orientation/consciousness: Other orientation findings ( oriented) HEENT Head: Yes atraumatic Eyes General: appearance normal, both eyes and all related structures Sclerae: sclerae normal EOM: EOMs intact bilaterally Neck Neck: Yes supple Lymphatic: no lymphadenopathy noted Resp Effort & Inspection: normal respiratory effort and no use of accessory muscles Auscultation: clear to auscultation bilaterally Cardio Rate: regular rate Rhythm: regular rhythm Heart sounds: no gallops, no murmurs and no rubs Skin General skin exam: other ( warm) Extrem General: No clubbing, No cyanosis and No edema Assessment & Plan Assessment & Plan (1) Cough: Code(s): R05.9 - Cough, unspecified Plan: Unclear if patient has environmental allergies, asthma, or GERD related etiologies or multifactorial. Will obtain full PFT and start on Breo. (2) Elevated hemidiaphragm: Code(s): J98.6 - Disorders of diaphragm Plan: X-ray results reviewed, essentially clinically silent elevation of right hemidiaphragm. (3) Environmental allergies: Code(s): Z91.09 - Other allergy status, other than to drugs and biological substances Plan: Will obtain IgE level, CBC with differential, and RAST panel for further evaluation. Orders: Orders Resp Allergy Profile Region I Today Z91.09 - Other allergy status, other than to drugs and biological substances PFT pulmonary function test Today Z91.09 - Other allergy status, other than to drugs and biological substances Complete Blood Count Auto Diff Today Z91.09 - Other allergy status, other than to drugs and biological substances Medications: New Breo Ellipta 200-25 mcg/dose (fluticasone furoate-vilanterol) 1 inh inhalation DAILY 1 ea 6RF 30 days NS Z91.09 - Other allergy status, other than to drugs and biological substances Coding Level of Care Code New Pt Level 4 (04538) Diagnoses Cough R05.9 Elevated hemidiaphragm J98.6 Environmental allergies Z91.09
== END 2023-08-27 14:40 | disposition home or self-care (01) ==
PROVIDERS: PCP Family Medicine; Referring Provider Emergency Medicine; Visit Provider Internal Medicine Pulmonary Disease
DX: R05.9 Cough, unspecified (principal); J98.6 Disorders of diaphragm; Z91.09 Other allergy status, other than to drugs and biological substances
CPT/HCPCS: 99204

== ENCOUNTER → 2023-08-27 14:17 | Outpatient (BNVA) | payer MEDICARE, SELFPAY | PROVIDERS: PCP Family Medicine; Referring Provider Emergency Medicine; Visit Provider Internal Medicine Pulmonary Disease ==

== ENCOUNTER 2023-08-27 14:44 | Emergency (ER) | payer MEDICARE, MEDICAID, SELFPAY ==
[2023-08-27 15:05] VITALS: BP 169/115; PULSE 114; RESP 16; TEMP 36.2; BMI 28.2
--- NOTE | 2023-08-27 15:06 | ED.GENADULT ---
HPI - General Adult General Chief complaint: Recheck/Abnormal Lab/Rx Stated complaint: high bp Time Seen by Provider: 08/27/23 20:47 Source: patient Mode of arrival: ambulatory Limitations: no limitations History of Present Illness HPI narrative: 55-year-old female with history of diabetes mellitus, hypertension, GERD who presents emergency department for evaluation of elevated blood pressures patient states that she was seen by her PCP for a dry, persistent cough, worse at night since April 2023. Patient's PCP felt that it was secondary the patient's lisinopril and stop this medication. Patient was started on hydrochlorothiazide 25 mg daily on 08/24/2023 (2 days prior to evaluation) patient states that since starting the medication she has been feeling weak and tired. She states she has been having intermittent headaches with no nausea or vomiting. She states that her blood pressures at home were very high. She contact her PCP and was advised to go to the emergency department for evaluation. Here in the emergency department the patient had several elevated blood pressures (142/110, 169/115 and 139/105). She denied fever, chills, chest pain, shortness of breath, numbness, weakness. Related Data Home Medications Medication Instructions Recorded Confirmed acetaminophen 650 mg 650 mg PO Q12H 08/19/20 tablet,extended release clotrimazole 1 % topical cream 1 appl topical BID 08/19/20 09/02/22 ergocalciferol (vitamin D2) 10 mcg 10 mcg PO DAILY 08/19/20 09/02/22 (400 unit) tablet fluoxetine 20 mg tablet 20 mg PO DAILY 08/19/20 09/02/22 hydrocortisone 1 % topical cream 1 appl topical QID PRN Rash 08/19/20 09/02/22 hydroxyzine HCl 25 mg tablet 25 mg PO BID PRN as directed 08/19/20 09/02/22 lisinopril 30 mg tablet 30 mg PO DAILY 08/19/20 09/02/22 omeprazole 20 mg tablet,delayed 20 mg PO DAILY 08/19/20 09/02/22 release tizanidine 2 mg capsule 2 mg PO BEDTIME 08/19/20 09/02/22 trazodone 100 mg tablet 100 mg PO BEDTIME 08/19/20 09/02/22 cholecalciferol (vitamin D3) 25 1 tab PO DAILY 09/02/22 09/02/22 mcg (1,000 unit) capsule (Vitamin D3) metformin 500 mg tablet 1 tab PO QPM 09/02/22 09/02/22 naloxone 4 mg/actuation nasal spray intranasal 09/02/22 albuterol sulfate 90 mcg/actuation inhalation 08/27/23 aerosol inhaler (Ventolin HFA) Previous Rx's Medication Instructions Recorded sennosides 8.6 mg capsule (senna) 17.2 mg (2 x 8.6 mg) PO BEDTIME 09/22/22 constipation 30 days #60 caps clobetasol 0.05 % topical cream 1 appl topical BEDTIME 6 weeks #45 06/02/23 grams Breo Ellipta 200 mcg-25 mcg/dose 1 inh inhalation DAILY 30 days #1 08/27/23 powder for inhalation (fluticasone ea furoate-vilanterol) amlodipine 5 mg tablet 5 mg PO DAILY #30 tabs 08/27/23 Allergies Allergy/AdvReac Type Severity Reaction Status Date / Time No Known Allergies Allergy Verified 08/27/23 15:05 Review of Systems Review of Systems: Yes all other systems are reviewed and are negative [facility] Past Medical History [facility] Narrative: Past medical history: Diabetes mellitus, hypertension, GERD. Social history: She denies tobacco, alcohol and drug use. Onset Date is defined in the Problem List Problems that require an onset date and time if occurred within 24 hrs of arrival to the ED Aortic Dissection and Rupture; Neurologic impairment; Cardiopulmonary Arrest; Endotracheal Intubation; Insertion or Replacement of Mechanical Circulatory Assist Device Medical History Hiatal hernia Cervical cancer screening Dyslipidemia Osteoarthritis Diabetes Menometrorrhagia GERD (gastroesophageal reflux disease) HTN (hypertension) Surgical History History of esophagogastroduodenoscopy (EGD) History of section Tubal ligation status Family History Family History Father Diabetes HTN (hypertension) Maternal Grandfather Prostate cancer Social History Social History Alcohol intake: never Patient Tobacco Use Status: Never used Tobacco Smoked in Last 30 Days: No Use of substances other than those prescribed or required for medical reasons: No Advance Directives: No Advance Directives Information Provided: No Patient : No Gender identity: Female Physical Exam ED Vital Signs: Vital Signs - 24 hr 08/27/23 15:05 08/27/23 19:24 08/27/23 21:58 Temperature 97.2 F 97.9 F Pulse Rate 114 H 103 H 97 Respiratory Rate 16 19 18 Blood Pressure 169/115 H 139/105 H 99/66 Pulse Oximetry 97 98 Oxygen Delivery Method Room Air Room Air BMI result Body Mass Index 28.2 Vital signs revealed elevated blood pressure of 160/115 otherwise unremarkable Exam: General: Awake, alert in no distress Head: Normocephalic, atraumatic EENT: PERRL, Lids normal, sclera normal, conjunctiva normal, nose normal , ears normal, throat without erythema or exudates Neck: Supple, no adenopathy, no trachea midline or C-spine tenderness Lung: breath sounds symmetric, no wheezing, rales or rhonchi Chest: symmetric movement, nontender Heart: regular rate and rhythm, normal S1, S2 no murmurs or rubs Abdomen: soft, non-tender, nondistended, normal bowel sounds Back: no vertebral tenderness, no CVAT Extremities: no deformities, moves all extremities symmetrically Skin: no rashes, no lesion, normal color and warmth Neuro: Awake, alert, oriented, normal speech, cranial nerves intact, moves all extremities symmetrically Psych: Pleasant, cooperative Course Course Course Narrative: This is an RME: Additional HPI, ROS, PE not included below will be deferred to primary provider. Patient is a 48-year-old female who presents emergency department for evaluation of hypertension. Reports over the past week she has had elevated blood pressure readings. She reports on 08/24/2023 her doctor discontinued her lisinopril as it was thought to be that this was causing her cough, she was started on HCTZ. Patient reports that at home her blood pressure was 152/119, took meds at 12:48 today. She endorses dizziness, blurred vision, denies chest pain. Plan: Labs, EKG Medications Administered Discontinued Medications Generic Name Dose Route Start Last Admin Trade Name Freq PRN Reason Stop Dose Admin Amlodipine Besylate 5 mg 08/27/23 21:35 08/27/23 22:17 Amlodipine Besylate 5 Mg Tablet PO 08/27/23 21:36 Not Given ONCE ONE Protocol Medical Decision Making Medical Decision Making [facility] Narrative: 48-year-old female with a history of hypertension, diabetes mellitus and GERD who recently was seen by her PCP for a dry nonproductive cough times month and her lisinopril was discontinued. The patient's was started on hydrochlorothiazide 25 mg on 08/24/2022 (2 days prior to evaluation). Patient noted elevated blood pressures at home, she states she was having headache, weakness and was referred to the emergency department for further evaluation. Patient did have elevated blood pressures in the emergency department but her exam was otherwise unremarkable. Following evaluation was ordered: CBC, CMP, troponin, urinalysis, EKG My interpretation patient's laboratory evaluation is as follows: CBC was normal, CMP revealed elevated BUN 17, elevated glucose 171 elevated AST 39 elevated alk-phos of 129. Troponin was below detectable limits Patient's EKG was unremarkable with no evidence for ischemia or myocardial infarction. Patient's presentation is consistent with essential hypertension and I did discuss management of blood pressure with the patient. Given her elevated blood pressures I felt that she may benefit from adding a 2nd agent to her hydrochlorothiazide and she was prescribed amlodipine 5 mg daily. She was given printed and verbal instructions discharged home Differential Diagnosis Differential Diagnoses: The differential diagnosis associated with the presentation includes Differential diagnosis includes but is not limited to myocardial ischemia, myocardial infarction, stroke, kidney failure Admission/Observation Consideration of admission/observation: Escalation of care including admission/observation considered Lab Data [facility] Lab Attestation statement: I reviewed the patient's lab results. 08/27/23 15:41 08/27/23 15:41 Labs: Lab Results 08/27/23 Range/Units 15:41 WBC 9.2 (4.8-10.8) X10*3/uL RBC 5.31 (4.20-5.50) X10*6/uL Hgb 15.6 (12.0-16.0) g/dl Hct 45.1 (37.0-47.0) % MCV 84.9 (80.0-98.0) fL MCH 29.4 (27.0-33.0) pg MCHC 34.6 (31.0-35.0) g/dl RDW 12.0 (11.0-16.0) % Plt Count 243 (160-400) X10*3/uL MPV 11.9 (9.4-12.3) fL Immature Gran % (Auto) 0.2 (0.0-0.4) % Neut % (Auto) 54.2 (45-73) % Lymph % (Auto) 29.8 (20-40) % [place] % (Auto) 6.6 (2-11) % Eos % (Auto) 8.7 H (0-4) % Baso % (Auto) 0.5 (0-2) % Lymph # (Auto) 2.8 (1.2-4.9) X10*3/uL [place] # (Auto) 0.6 (0.1-1.2) X10*3/uL Eos # (Auto) 0.8 H (0.0-0.4) X10*3/uL Baso # (Auto) 0.1 (0.0-0.2) X10*3/uL Abs Immat Gran (auto) 0.02 (0.00-0.03) X10*3/uL Absolute Neuts (auto) 5.0 (2.0-8.3) x10*3/uL Absolute Nucleated RBC 0.000 (0.0-0.012) X10*3/uL Nucleated RBC % (auto) 0.0 (0.0-0.2) /100WBC Sodium 136 (135-145) mmol/L Potassium 4.1 (3.3-5.1) mmol/L Chloride 102 (96-108) mmol/L Carbon Dioxide 24 (22-29) mmol/L Anion Gap 14 (12-20) BUN 17 H (9-16) mg/dL Creatinine 0.74 (0.5-1.4) mg/dL Estim Creat Clear Calc 89.9 Estimated GFR > 60 Random Glucose 171 H (60-115) mg/dL Calcium 10.1 (8.4-10.2) mg/dL Total Bilirubin 0.6 (0.0-1.0) mg/dL AST 24 (5-31) U/L ALT 39 H (0-31) U/L Alkaline Phosphatase 121 H (39-117) U/L Troponin I High Sens 2.7 (<3.5-17.0) ng/L Total Protein 8.2 H (6.5-8.0) g/dL Albumin 5.0 (3.5-5.0) g/dL Independent Interpretation I performed an independent interpretation of an: EKG Interpretation: My interpretation patient's 12 EKG done at 15:37 hours is as follows: Normal sinus rhythm with a rate of 84, occasional PVC, normal PA interval, QRS duration QTC interval, Q-wave in lead 3, no ST segment elevation, no ST segment depression, no significant T-wave abnormalities Prescription Management I considered prescription management with: Other (Calcium channel gaston) Chronic Conditions Patient?s care impacted by: Diabetes and Hypertension Discharge Plan Discharge Clinical Impression: HTN (hypertension) Patient Disposition: Home, Self-Care Additional Instructions: High blood pressure instructions: The reason to check your blood pressure at home is to give your doctor an idea of what your blood pressure does when you are not in the doctor's office. Take your blood pressure in the mornings, Mondays , Wednesdays and Fridays and then write down these readings to discuss them with your doctor at your next visit. Do this for 2 weeks. Continue taking your hydrochlorothiazide 25 mg once in the morning I am starting you on a 2nd blood pressure medication, amlodipine 5 mg once a day. You received 1 dose here in the emergency department. Take your next dose tomorrow when you get the medicine from the pharmacy . Then take amlodipine and hydrochlorothiazide together in the morning. When we change your blood pressure medications or add blood pressure medications, it often takes anywhere from 2-6 week before these medications work to reduce your blood pressure. Follow-up with your doctor to discuss your blood pressure readings in 2 weeks Please return to the emergency department if your symptoms get worse or if you develop any new symptoms that are concerning to you. Prescriptions: New amlodipine 5 mg tablet 5 mg PO DAILY Qty: 30 0RF No Action metformin 500 mg tablet 1 tab PO QPM cholecalciferol (vitamin D3) [Vitamin D3] 25 mcg (1,000 unit) capsule 1 tab PO DAILY naloxone 4 mg/actuation spray,non-aerosol intranasal hydroxyzine HCl 25 mg tablet 25 mg PO BID PRN (Reason: as directed ) tizanidine 2 mg capsule 2 mg PO BEDTIME lisinopril 30 mg tablet 30 mg PO DAILY fluoxetine 20 mg tablet 20 mg PO DAILY omeprazole 20 mg tablet,delayed release (DR/EC) 20 mg PO DAILY acetaminophen 650 mg tablet extended release 650 mg PO Q12H trazodone 100 mg tablet 100 mg PO BEDTIME clotrimazole 1 % cream 1 appl topical BID hydrocortisone 1 % cream 1 appl topical QID PRN (Reason: Rash) ergocalciferol (vitamin D2) 10 mcg (400 unit) tablet 10 mcg PO DAILY senna 8.6 mg capsule 17.2 mg PO BEDTIME 30 Days Qty: 60 6RF albuterol sulfate [Ventolin HFA] 90 mcg/actuation HFA aerosol inhaler inhalation fluticasone furoate-vilanterol [Breo Ellipta] 200-25 mcg/dose blister with device 1 inh inhalation DAILY 30 Days Qty: 1 6RF clobetasol 0.05 % cream 1 appl topical BEDTIME 42 Days Qty: 45 0RF Rx Instructions: After the initial application for 6 weeks continue using the medication for maintenance therapy 2-3 times per week Interventions: ED Discharge Assessment Last Done: 08/27/23 22:27 Discharge Date/Time: 08/27/23 22:28
--- NOTE | 2023-08-27 15:09 | ECG_ITS ---
Test Reason : HTN Blood Pressure : / mmHG Vent. Rate : 084 BPM Atrial Rate : 084 BPM P-R Int : 154 ms QRS Dur : 078 ms QT Int : 376 ms P-R-T Axes : 031 015 007 degrees QTc Int : 444 ms Sinus rhythm with sinus arrhythmia with occasional Premature ventricular complexes Minimal voltage criteria for LVH, may be normal variant ( R in aVL ) Nonspecific T wave abnormality Abnormal ECG When compared with ECG of 03-JUN-2017 16:34, Premature ventricular complexes are now Present Nonspecific T wave abnormality, worse in Lateral leads Referred By: Farida Torres Electronically Signed By:LUPE DEJESUS MD
[2023-08-27 15:45] LABS: MANUAL DIFF FLAG NO
[2023-08-27 15:47] LABS: Basophils Absolute Auto 0.1 X10*3/uL (0.0-0.2); Basophils Percent Auto 0.5 % (0-2); Eosinophils Absolute Auto 0.8 X10*3/uL (0.0-0.4); Eosinophils Percent Auto 8.7 % (0-4); Hematocrit 45.1 % (37.0-47.0); Hemoglobin 15.6 g/dl (12.0-16.0); Imm Gran Abs Auto 0.02 X10*3/uL (0.00-0.03); Imm Gran Pct Auto 0.2 % (0.0-0.4); Lymphocytes Absolute Auto 2.8 X10*3/uL (1.2-4.9); Lymphocytes Percent Auto 29.8 % (20-40); Mean Corpuscular HGB Conc 34.6 g/dl (31.0-35.0); Mean Corpuscular Hemoglobin 29.4 pg (27.0-33.0); Mean Corpuscular Volume 84.9 fL (80.0-98.0); Mean Platelet Volume 11.9 fL (9.4-12.3); Monocytes Absolute Auto 0.6 X10*3/uL (0.1-1.2); Monocytes Percent Auto 6.6 % (2-11); Neutrophils Percent Auto 54.2 % (45-73); Platelet Count 243 X10*3/uL (160-400); Red Blood Count 5.31 X10*6/uL (4.20-5.50); White Blood Count 9.2 X10*3/uL (4.8-10.8)
[2023-08-27 15:59] LABS: Alanine Aminotransferase 39 U/L (0-31); Alkaline Phosphatase 121 U/L (39-117); Anion Gap 14 (12-20); Aspartate Amino Transferase 24 U/L (5-31); Bilirubin Total 0.6 mg/dL (0.0-1.0); Blood Urea Nitrogen 17 mg/dL (9-16); Calcium 10.1 mg/dL (8.4-10.2); Carbon Dioxide 24 mmol/L (22-29); Chloride 102 mmol/L (96-108); Creatinine Clr Calc Pharmacy 89.9; Estimated Glomerular Filt Rate > 60; Glucose Random 171 mg/dL (60-115); Potassium 4.1 mmol/L (3.3-5.1); Sodium 136 mmol/L (135-145); Total Protein 8.2 g/dL (6.5-8.0)
[2023-08-27 16:06] LABS: Troponin-I High Sensitivity 2.7 ng/L (<3.5-17.0)
[2023-08-27 19:24] VITALS: BP 139/105; PULSE 103; RESP 19; TEMP 36.6; O2SAT 97
[2023-08-27 21:58] VITALS: BP 99/66; PULSE 97; RESP 18; O2SAT 98
--- NOTE | 2023-08-27 22:26 | PC.NURSE ---
amlodipine held per dr zamora as bp 99/66. pt ambulatory at discharge. pt provided with discharge packet. pt verbalized understanding of discharge plan pt calm and cooperative
== END 2023-08-27 22:28 | disposition home or self-care (01) ==
PROVIDERS: Nurse Practitioner Family; Emergency Provider Emergency Medicine Emergency Medical Services; PCP Family Medicine
DX: R79.89 Other specified abnormal findings of blood chemistry (principal); I49.9 Cardiac arrhythmia, unspecified; I10 Essential (primary) hypertension; Z79.899 Other long term (current) drug therapy
CPT/HCPCS: 36415; 80053; 84484; 85025; 93005; 99202; 99283; 99284

== ENCOUNTER → 2023-08-27 15:09 | Outpatient (BNV) | payer MEDICARE, MEDICAID, SELFPAY | PROVIDERS: Emergency Provider Emergency Medicine Emergency Medical Services; PCP Family Medicine; Visit Provider Internal Medicine Cardiovascular Disease | DX: I10 Essential (primary) hypertension (principal) | CPT/HCPCS: 93010 ==

== ENCOUNTER 2023-09-01 13:10 | Outpatient (REF) | payer MEDICARE, MEDICAID, SELFPAY ==
--- NOTE | ~2023-09-01 | US_ITS ---
EXAMINATION: US PELVIS CLINICAL INFORMATION: Ovarian cyst; the last menstrual period is uncertain. COMPARISON: Pelvic ultrasound dated 02/09/2023. TECHNIQUE: Ultrasound of the pelvis is performed using both transabdominal and transvaginal transducers along with Doppler. Transvaginal imaging is performed due to inadequate visualization transabdominally. FINDINGS: Uterus: The uterus is anteverted and anteflexed. The uterus measures 8.9 x 2.8 x 4.4 cm. Nabothian cysts are seen within the cervix. The double wall endometrial thickness is 3 mm. The uterus is smooth in contour and has normal myometrial echogenicity. No visible fibroid. Adnexa: Both ovaries are visualized.There is normal color flow to the adnexa. There is no ovarian torsion. There is no pelvic ascites or fluid collection. A 1.2 x 1.0 x 0.8 cm left paraovarian cyst is seen. Right ovary measures 2.0 x 0.9 x 1.7 cm, volume 1.6 mL. Left ovary measures 1.3 x 1.1 x 1.5 cm, volume 1.3 mL. US/US pelvic and transvaginal IMPRESSION: 1. A 1.2 cm left paraovarian cyst is seen. 2. Nabothian cysts are seen within the cervix.
[2023-09-01 13:27] LABS: MANUAL DIFF FLAG NO
[2023-09-01 14:00] LABS: Basophils Percent Auto 0.7 % (0-2); Eosinophils Absolute Auto 0.3 X10*3/uL (0.0-0.4); Eosinophils Percent Auto 4.8 % (0-4); Hematocrit 36.9 % (37.0-47.0); Hemoglobin 12.9 g/dl (12.0-16.0); Imm Gran Abs Auto 0.01 X10*3/uL (0.00-0.03); Imm Gran Pct Auto 0.2 % (0.0-0.4); Lymphocytes Absolute Auto 2.4 X10*3/uL (1.2-4.9); Lymphocytes Percent Auto 39.4 % (20-40); Mean Corpuscular Hemoglobin 29.6 pg (27.0-33.0); Mean Corpuscular Volume 84.6 fL (80.0-98.0); Mean Platelet Volume 12.2 fL (9.4-12.3); Monocytes Absolute Auto 0.5 X10*3/uL (0.1-1.2); Monocytes Percent Auto 8.7 % (2-11); Neutrophils Absolute Auto 2.8 x10*3/uL (2.0-8.3); Neutrophils Percent Auto 46.2 % (45-73); Platelet Count 188 X10*3/uL (160-400); Red Blood Count 4.36 X10*6/uL (4.20-5.50); White Blood Count 6.1 X10*3/uL (4.8-10.8)
[2023-09-09 08:53] LABS: Class Alternaria alternata 0; Class Aspergillus fumigatus 0; Class Bermuda Grass 0; Class Birch 0; Class Cat Dander 0; Class Cladosporium herbarum 0; Class Cockroach 0; Class Common Ragweed 3; Class Cottonwood 0; Class Derm. pterony 0; Class Dermatophagoides farinae 0; Class Dog Dander 0; Class Elm 0; Class Maple Box Elder 0; Class Mountain Cedar 0; Class Mouse Urine Protein 0; Class Mugwort 0; Class Oak 0; Class Penicillium crysogenum 0; Class Rough Pigweed 0; Class Sheep Sorrel 0; Class Sycamore 0; Class Timothy Grass 0; Class Walnut Tree 0; Class White Ash 0; Class White Mulberry 0; D001 IgE D pteronyssinus <0.10 kU/L; D002 - IgE D farinae <0.10 kU/L; E001 - IgE Cat Dander <0.10 kU/L; E005 - IgE Dog Dander <0.10 kU/L; E072-IgE Mouse Urine <0.10 kU/L; G002 IgE Bermuda Grass <0.10 kU/L; G006 - IgE Timothy Grass <0.10 kU/L; I006-IgE Cockroach, German <0.10 kU/L; Immunoglobulin E 20 kU/L (<OR=114); M001 IgE Penicillium chrysogen <0.10 kU/L; M002 - IgE Cladosporium herbar <0.10 kU/L; M003 - IgE Aspergillus fumigat <0.10 kU/L; M006 - IgE Alternaria alternat <0.10 kU/L; T001 IgE Maple/Box Elder <0.10 kU/L; T003 IgE Common Silver Birch <0.10 kU/L; T006 - IgE Cedar, Mountain <0.10 kU/L; T007 - IgE Oak, White <0.10 kU/L; T008 IgE Elm, American <0.10 kU/L; T010 - IgE Walnut <0.10 kU/L; T011 - IgE Maple Leaf Sycamore <0.10 kU/L; T014 - IgE Cottonwood <0.10 kU/L; T015 - IgE Ash, White <0.10 kU/L; T070 - IgE White Mulberry <0.10 kU/L; W001 - IgE Ragweed, Short 3.85 kU/L; W006 - IgE Mugwort <0.10 kU/L; W014 IgE Pigweed, Common <0.10 kU/L; W018 IgE Sheep Sorrel <0.10 kU/L
== END 2023-09-01 13:11 | disposition home or self-care (01) ==
LOC: HO.US 13:10
PROVIDERS: PCP Family Medicine; Referring Provider Internal Medicine Pulmonary Disease; Visit Provider Obstetrics & Gynecology
DX: N83.209 Unspecified ovarian cyst, unspecified side (principal); Z91.09 Other allergy status, other than to drugs and biological substances
CPT/HCPCS: 36415; 76830; 76856; 82785; 85025; 86003

== ENCOUNTER 2023-11-01 12:38 | Outpatient (AMB) | payer MEDICARE, MEDICAID, SELFPAY ==
--- NOTE | 2023-11-01 12:42 | MHC.OFFVIS ---
Intake Intake Visit Reasons: US follow up [employer] Required: No Allergies No Known Allergies Allergy (Verified 11/01/23 12:45) Is last menstrual period known: No Post menopausal: Yes Patient : No HPI HPI Comments History of Present Illness Details Presenting for pelvic ultrasound follow-up regarding right 1.8 cm ovarian cyst seen on pelvic ultrasound done in 02/05. The patient has no complaints. Ultrasound done recently showed the following: Uterus: The uterus is anteverted and anteflexed. The uterus measures 8.9 x 2.8 x 4.4 cm. Nabothian cysts are seen within the cervix. The double wall endometrial thickness is 3 mm. The uterus is smooth in contour and has normal myometrial echogenicity. No visible fibroid. Adnexa: Both ovaries are visualized.There is normal color flow to the adnexa. There is no ovarian torsion. There is no pelvic ascites or fluid collection. A 1.2 x 1.0 x 0.8 cm left paraovarian cyst is seen. Right ovary measures 2.0 x 0.9 x 1.7 cm, volume 1.6 mL. Left ovary measures 1.3 x 1.1 x 1.5 cm, volume 1.3 mL PFSH Medical History Hiatal hernia Cervical cancer screening Dyslipidemia Osteoarthritis Diabetes Menometrorrhagia GERD (gastroesophageal reflux disease) HTN (hypertension) Surgical History History of esophagogastroduodenoscopy (EGD) History of section Tubal ligation status Family History Father Diabetes HTN (hypertension) Maternal Grandfather Prostate cancer Social History Alcohol intake: never Patient Tobacco Use Status: Never used Tobacco Patient : No Gender identity: Female Female Reproductive History Menstrual Age of Menarche: 7 control method: permanent sterilization Review of Systems Const All systems reviewed & are unremarkable except as noted in HPI and below Reports as per HPI and Reports no additional complaints GI Reports no additional complaints Reports no additional complaints Assessment & Plan Assessment & Plan (1) Ovarian cyst: Code(s): N83.209 - Unspecified ovarian cyst, unspecified side Plan: Discussed with the patient ultrasound findings showing the previously identified right simple ovarian cyst 1.8 cm has resolved, presence of annual 1.2 cm paraovarian cyst. The patient was instructed to call if any concern develop especially pelvic pain and or vaginal bleeding. All questions were answered the patient verbalized understanding. Coding Level of Care Code Est Pt Level 3 (30789) Diagnoses Ovarian cyst N83.209
== END 2023-11-01 12:55 | disposition home or self-care (01) ==
LOC: HO.HWS 12:38
PROVIDERS: PCP Family Medicine; Visit Provider Obstetrics & Gynecology
DX: N83.209 Unspecified ovarian cyst, unspecified side (principal)
CPT/HCPCS: 99213

== ENCOUNTER → 2023-11-01 12:38 | Outpatient (BNVA) | payer MEDICARE, MEDICAID, SELFPAY | PROVIDERS: PCP Family Medicine; Visit Provider Obstetrics & Gynecology | DX: N83.209 Unspecified ovarian cyst, unspecified side (principal) | CPT/HCPCS: 99212 ==

== ENCOUNTER 2023-12-29 08:43 | Outpatient (REF) | payer MEDICARE, MEDICAID, SELFPAY ==
--- NOTE | ~2023-12-29 | US_ITS ---
EXAMINATION: US COMPLETE ABDOMEN WITH LIVER ELASTOGRAPHY CLINICAL INFORMATION: Transaminitis and fatty liver. COMPARISON: None available. TECHNIQUE: Real-time imaging of the abdominal viscera. Noninvasive ultrasound liver fibrosis assessment is performed using Nataly ElastPQ point quantification shear wave elastography (2D-SWE) with a C5-2 MHz transducer. Multiple elastography samples are obtained. FINDINGS: PANCREAS: Normal. The visualized pancreatic head and body are normal in appearance. The remainder of the pancreas is obscured from visualization by the overlying bowel gas. ABDOMINAL AORTA: The proximal, middle, and distal aortic segments are normal in caliber. INFERIOR VENA CAVA: Visualized portions are normal. LIVER: The liver demonstrates normal size, contour and increased echogenicity. No focal lesion or intrahepatic biliary duct dilatation. The right lobe measures 13.4 cm in length. The left lobe measures 9.5 cm in length. Portal flow is towards the liver (hepatopetal). Shear wave liver elastography median stiffness is 1.47 m/s (reference: normal median stiffness is 1.3 m/s or less). IQR/median stiffness to assess sampling precision is 0.08 (reference: good quality data set is IQR/median stiffness of 0.15 or less). GALLBLADDER: Normal. The gallbladder is physiologically distended without evidence of stones, sludge, polyps, wall thickening or pericholecystic fluid. COMMON BILE DUCT: Normal in caliber measuring 0.33 cm in diameter. RIGHT KIDNEY: Normal. No hydronephrosis. No renal calculi or focal parenchymal lesions. The kidney measures 11.2 cm in maximum dimension. LEFT KIDNEY: Normal. No hydronephrosis. No renal calculi or focal parenchymal lesions. The kidney measures 11.3 cm in maximum dimension. SPLEEN: Normal. The spleen measures 9.1 cm in maximum dimension. FREE FLUID: None. US/US abdomen comp w elastography IMPRESSION: 1. There is generalized increase in hepatic echotexture, consistent with fatty infiltration or hepatocellular disease. Please correlate clinically. No focal hepatic mass or intrahepatic biliary dilatation is seen. 2. Liver elastography: In the absence of other known clinical signs, measurements rule out compensated advanced chronic liver disease. If there are known clinical signs, further testing may be needed for confirmation. REFERENCE: Society of Radiologists in Ultrasound Liver Stiffness Thresholds (2020): LIVER STIFFNESS THRESHOLDS: *Liver Stiffness equal or less than 1.3 m/s: High probability of being normal. *Liver Stiffness less than 1.7 m/s: In the absence of other known clinical signs, rules out compensated advanced chronic liver disease. *Liver Stiffness 1.7-2.1 m/s: Suggestive of compensated advanced chronic liver disease but need further test for confirmation. *Liver Stiffness over 2.1 m/s: Rules in compensated advanced chronic liver disease. *Liver Stiffness over 2.4 m/s: Suggestive of clinically significant portal hypertension. QUALITY OF DATA SET: *IQR/Median value equal or less than 0.15 implies a quality data set. *IQR/Median value over 0.15 implies a poor quality data set. SIGNIFICANT CHANGE FROM PRIOR EXAM: Significant change if liver stiffness measurement is 10% or greater from prior exam. OTHER CONSIDERATIONS: The stage of liver fibrosis may be overestimated in the setting of acute hepatitis, liver inflammation, elevated liver function tests, hepatic vascular congestion, obstructive cholestasis, non-fasting state, and infiltrative diseases such as amyloidosis and lymphoma. In some patients with NAFLD, the liver stiffness thresholds for compensated advanced chronic liver disease may be lower. In causes other than viral hepatitis and NAFLD, liver stiffness thresholds are not well established.
== END 2023-12-29 08:44 | disposition home or self-care (01) ==
LOC: HO.US 08:43
PROVIDERS: PCP Family Medicine; Visit Provider Family Medicine
DX: K76.0 Fatty (change of) liver, not elsewhere classified (principal); R74.01 Elevation of levels of liver transaminase levels; R79.89 Other specified abnormal findings of blood chemistry
CPT/HCPCS: 76700; 76981

== ENCOUNTER 2024-03-01 12:24 | Outpatient (REF) | payer MEDICARE, MEDICAID, SELFPAY ==
--- NOTE | ~2024-03-01 | MM_ITS ---
EXAMINATION: MM SCREENING DIGITAL BREAST TOMOSYNTHESIS, BILATERAL CLINICAL INFORMATION: Screening. Asymptomatic. COMPARISON: Mammography: This study is compared with prior exams dating back to 2016. TECHNIQUE: Digital breast tomosynthesis is performed in both the craniocaudal and mediolateral oblique views along with computer-aided detection (CAD). Synthesized 2D images are generated from the tomosynthesis. FINDINGS: The breasts are almost entirely fatty (ACR BI-RADS breast composition Category a). There are no significant masses, abnormal calcifications, or other abnormalities. MM/MM tomosynthesis screening BI IMPRESSION: No mammographic evidence of malignancy. ASSESSMENT: BI-RADS BI-RADS 1 - Negative RECOMMENDATION: Routine annual mammography screening. 1 year F/U This examination should not preclude the clinical evaluation of a suspicious palpable abnormality. This patient's information was entered into a reminder system with a target due date for their next mammogram.
== END 2024-03-01 12:25 | disposition home or self-care (01) ==
LOC: HO.MAMMO 12:24
PROVIDERS: PCP Family Medicine; Visit Provider Family Medicine
DX: Z12.31 Encounter for screening mammogram for malignant neoplasm of breast (principal)
CPT/HCPCS: 77063; 77067

== ENCOUNTER → 2024-03-01 13:00 | Outpatient (BNV) | payer MEDICARE, MEDICAID, SELFPAY | PROVIDERS: PCP Family Medicine; Visit Provider Radiology Diagnostic Radiology | DX: Z12.31 Encounter for screening mammogram for malignant neoplasm of breast (principal) | CPT/HCPCS: 77063; 77067 ==

== ENCOUNTER 2024-06-13 13:19 | Outpatient (AMB) | payer MEDICARE, MEDICAID, SELFPAY ==
--- NOTE | 2024-06-13 13:21 | A.OFFVIS_ITS ---
Vital Signs 06/13/24 13:28 Height 5 ft 4 in Weight 173 lb BMI 29.7 BP 110/66 Blood Pressure Location Lt brachial Position Sitting Intake Visit Reasons: re inspection Allergies No Known Allergies Allergy (Verified 06/13/24 13:29) HPI Comments Details: Presenting for vulvar reinspection for regarding lichen sclerosus diagnosed Last 05/08. The patient has been using clobetasol 2-3 times a and the itching is controlled partially on and off. [facility] Medical History Hiatal hernia Cervical cancer screening Dyslipidemia Osteoarthritis Diabetes Menometrorrhagia GERD (gastroesophageal reflux disease) HTN (hypertension) Surgical History History of esophagogastroduodenoscopy (EGD) History of section Tubal ligation status Family History Father Diabetes HTN (hypertension) Maternal Grandfather Prostate cancer Social History Alcohol intake: never Patient Tobacco Use Status: Never used Tobacco Gender identity: Female Female Reproductive History Menstrual Age of Menarche: 7 Review of Systems Const All systems reviewed & are unremarkable except as noted in HPI and below Physical Exam Vital Signs: Last Vital Signs BP 110/66 06/13/24 13:28 BMI result Body Mass Index 29.7 General: Yes no CVA tenderness External Female Exam: normal appearance of the urethra and other (Bilateral upper labia majora/minora leukoplakia no ulcers) Speculum Exam - Vagina: normal appearance of the vagina, normal palpation, no lesions and no masses Speculum Exam - Cervix: normal appearance of the cervix, normal palpation, no lesions, no masses and nontender Bimanual exam- vagina & uterus: normal bimanual exam, normal palpation, uterine size normal, normal palpation, uterine shape normal, No Cervical tenderness pre sent and non-tender Bimanual Exam- Adnexa, other: normal adnexae Back/Spine/Pelvis Back: no CVA tenderness Assessment & Plan Assessment & Plan (1) Lichen sclerosus: Code(s): L90.0 - Lichen sclerosus et atrophicus Category: Medical Plan: Discussed with the patient the pathology results showing lichen sclerosis. Explained to the patient that Lichen sclerosus refers to a benign, chronic, progressive dermatologic condition characterized by marked inflammation, epithelial thinning accompanied by pruritus and pain. In addition, discussed with the patient that there is a small increased risk of squamous cell cancer of the vulva in patients with lichen sclerosus. Adequate treatment of the disease seems to be associated with a reduced risk of development of neoplasia. Instructed the patient to schedule an appointment in three months to examine the affected area, with possible biopsy of suspicious lesions, in addition explained to the patient that she should look at the skin of the affected area and touch with fingertips monthly to search for thickened lumps or sores that do not heal & to report such findings for inspection & possible biopsy to rule out vulvar cancer Commended to continue Clobetasol propionate 0.05% ointment to be applied daily at night for 2 weeks, followed by maintenance therapy two to three times per week . All questions answered, the patient verbalized understanding Coding Level of Care Code Est Pt Level 3 (85196) Diagnoses Lichen sclerosus L90.0
[2024-06-13 13:28] VITALS: BP 110/66; BMI 29.7
== END 2024-06-13 13:54 | disposition home or self-care (01) ==
LOC: HO.HWS 13:19
PROVIDERS: PCP Family Medicine; Visit Provider Obstetrics & Gynecology
DX: L90.0 Lichen sclerosus et atrophicus (principal)
CPT/HCPCS: 99213

== ENCOUNTER → 2024-06-13 13:19 | Outpatient (BNVA) | payer MEDICARE, MEDICAID, SELFPAY | PROVIDERS: PCP Family Medicine; Visit Provider Obstetrics & Gynecology | DX: L90.0 Lichen sclerosus et atrophicus (principal) | CPT/HCPCS: 99212 ==

== ENCOUNTER 2024-11-02 13:30 | Outpatient (AMB) | payer MEDICARE, MEDICAID, SELFPAY ==
--- NOTE | 2024-11-02 13:34 | A.OFFVIS_ITS ---
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 Has been using clobetasol maintenance 2 to 3 times a week with minimal itching or any other concerns Last Pap/HPV was negative in 09/05 Last Mammogram was BI-RADS 1 in 03/08 Last Colonoscopy was in 09/07, the recommendation was to repeat in 3 years [facility] Medical History Hiatal hernia Cervical cancer screening Dyslipidemia Osteoarthritis Diabetes Menometrorrhagia GERD (gastroesophageal reflux disease) HTN (hypertension) Surgical History History of esophagogastroduodenoscopy (EGD) History of section Tubal ligation status Family History Father Diabetes HTN (hypertension) Maternal Grandfather Prostate cancer Social History Alcohol intake: never Patient Tobacco Use Status: Never used Tobacco Patient : No Gender identity: Female Female Reproductive History Menstrual Age of Menarche: 7 Review of Systems Const All systems reviewed & are unremarkable except as noted in HPI and below Card Reports as per HPI Resp Reports as per HPI GI Reports as per HPI and Reports no additional complaints Reports as per HPI Physical Exam Const General: cooperative, healthy appearing and comfortable Chest Chest palpation & inspection: normal inspection of the chest and normal palpation of entire chest wall Breast/axilla inspection: normal inspection of the breasts and normal inspection of the axillae Breast/axilla palpation: normal palpation of the breasts, normal palpation of the axillae and no axillary lymphadenopathy Resp Effort & Inspection: normal respiratory effort Auscultation: clear to auscultation bilaterally Percussion: percussion normal Cardio Palpation: normal PMI Rate: regular rate Rhythm: regular rhythm Heart sounds: no murmurs and no rubs Peripheral pulses: Peripheral pulses 2+ throughout GI Inspection: Yes normal to inspection Palpation (GI): Soft to palpation, nontender, no guarding, not rigid and No hepatosplenomegaly present Percussion: Yes normal to percussion Auscultation: normal bowel sounds Rectal Exam - Female: deferred General: Yes bladder normal to palpation External Female Exam: lesion (Posterior fourchette ulcer) Speculum Exam - Vagina: normal appearance of the vagina, normal palpation, normal vaginal discharge and not erythematous Speculum Exam - Cervix: normal appearance of the cervix and normal palpation Bimanual exam- vagina & uterus: normal bimanual exam, normal palpation, uterine size normal, bladder normal to palpation, consistency normal and normal palpation Bimanual Exam- Adnexa, other: normal adnexae, no masses and no tenderness Office Procedures COMMISSION CLERK Biopsy Before the procedure was started d/w patient the procedure, alternatives ( do nothing, medical rx), & all the risks associated with the procedure ( bleeding , infection, vulvar scarring, painful intercourse, injury to vessels, possible need for transfusion with all its risks) then patient signed the consent. Preop dx: Posterior fourchette ulcer Op: Posterior fourchette ulcer biopsy Post op: Same Anesthesia: Lidocaine 1% 3cc used Procedure: Using betadine the area was scrubbed and draped in the usual manner. 3 cc of lidocaine was used for anesthesia at the left vulvar lesion area ; using punch biopsy the Posterior fourchette ulcer was biopsied . Pressure was used for hemostasis. The patient tolerated the procedure well. Discharge Instructions: The patient was instructed to schedule an appointment in 2 weeks for follow-up and to call if temp>100.4, area of the biopsy redness or pain, nausea/vomiting. This note was generated with a voice recognition program. Some errors may have been overlooked during the review of this note. Sometimes these errors may affect the content or meaning of a given sentence. 47162-Ogeysl of Vulva/Perineum Procedure code (CPT) selection complete Assessment & Plan Assessment & Plan (1) Well woman exam: Code(s): Z01.419 - Encounter for gynecological examination (general) (routine) without abnormal findings Category: Medical Plan: Co testing not indicated this year. Counseled the patient about the recommended dietary allowance of 1200 mg of Calcium & 600 IU of vitamin D. Instructions given the patient to schedule next screening Mammogram in 03/09. The patient was instructed to perform monthly self-breast exams and schedule annual exam in a year. All questions answered and the patient verbalized understanding. (2) Lichen sclerosus: Comment: Posterior fourchette ulcer Code(s): L90.0 - Lichen sclerosus et atrophicus Category: Medical Plan: Explained to the patient the finding on pelvic exam, posterior fourchette ulcer, since lichen sclerosus associated with mild increase risk of vulvar cancer, recommended vulvar biopsy. Vulvar biopsy done, see procedure note Orders: Orders AMB COMMISSION CLERK Biopsy Today L90.0 - Lichen sclerosus et atrophicus Coding Level of Care Code Est Pt Prev Care 40-64y(81991) Diagnoses Well woman exam Z01.419 Lichen sclerosus L90.0 CPT Codes COMMISSION CLERK Biopsy - CPT: 14632-Lliuyd of Vulva/Perineum ([id number])
== END 2024-11-02 14:34 | disposition home or self-care (01) ==
LOC: HO.HWS 13:30
PROVIDERS: PCP Family Medicine; Visit Provider Obstetrics & Gynecology
DX: Z01.419 Encounter for gynecological examination (general) (routine) without abnormal findings (principal); L90.0 Lichen sclerosus et atrophicus
CPT/HCPCS: 56605; 99213; G0101

== ENCOUNTER 2024-11-02 13:30 | Outpatient (REF) | payer MEDICARE, MEDICAID, SELFPAY | END 2024-11-02 13:31 | disposition home or self-care (01) | LOC: HO.LNP 13:30 | PROVIDERS: PCP Family Medicine; Visit Provider Obstetrics & Gynecology | DX: Z01.419 Encounter for gynecological examination (general) (routine) without abnormal findings (principal); L90.0 Lichen sclerosus et atrophicus | CPT/HCPCS: 56605; 88305; 88312; 99212; G0101 ==

== ENCOUNTER 2024-11-16 12:11 | Outpatient (AMB) | payer MEDICARE, MEDICAID, SELFPAY ==
--- NOTE | 2024-11-16 12:11 | A.OFFVIS_ITS ---
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 Doing well with no complaints. The pathology showed the following: Vulva, posterior fourchette ulcer, biopsy: Small fragment of hyperkeratotic skin/squamous mucosa with spongiosis and subepithelial hyalinized stroma; no atypia identified; negative for fungi. See comment. Comment: The hyalinized stroma raises the possibility of lichen sclerosus [facility] Medical History Hiatal hernia Cervical cancer screening Dyslipidemia Osteoarthritis Diabetes Menometrorrhagia GERD (gastroesophageal reflux disease) HTN (hypertension) Surgical History History of esophagogastroduodenoscopy (EGD) History of section Tubal ligation status Family History Father Diabetes HTN (hypertension) Maternal Grandfather Prostate cancer Social History Alcohol intake: never Patient Tobacco Use Status: Never used Tobacco Gender identity: Female Female Reproductive History Menstrual Age of Menarche: 7 Review of Systems Const All systems reviewed & are unremarkable except as noted in HPI and below Reports as per HPI and Reports no additional complaints GI Reports no additional complaints Reports no additional complaints Telehealth Telehealth Telehealth Platform: Telephone Location of provider rendering services: practice address Location of patient: address on file Patient Identification confirmed using: Name, : Yes Telehealth method: video Patient verbally consented to treatment: Yes Patient verbally consented to billing insurance company: Yes Patient informed of any privacy concerns related to visit: Yes Minutes spent on Phone/Video with Pt.: 2 Assessment & Plan Assessment & Plan (1) Lichen sclerosus: Comment: Posterior fourchette ulcer Code(s): L90.0 - Lichen sclerosus et atrophicus Category: Medical Plan: Discussed with the patient the pathology results showing lichen sclerosis. Explained to the patient that Lichen sclerosus refers to a benign, chronic, progressive dermatologic condition characterized by marked inflammation, epithelial thinning accompanied by pruritus and pain. In addition, discussed with the patient that there is a small increased risk of squamous cell cancer of the vulva in patients with lichen sclerosus. Adequate treatment of the disease seems to be associated with a reduced risk of development of neoplasia. Instructed the patient to schedule an appointment in a year to examine the affected area, with possible biopsy of suspicious lesions, in addition explained to the patient that she should look at the skin of the affected area and touch with fingertips monthly to search for thickened lumps or sores that do not heal & to report such findings for inspection & possible biopsy to rule out vulvar cancer Clobetasol propionate 0.05% ointment sent to the patient's pharmacy, instructions given the patient to apply the cream daily at night for 2-3 weeks weeks, followed by maintenance therapy two to three times per week . I spent a total of 20 minutes reviewing the chart, talking to the patient via video and documenting in the medical record. Medications: Refilled clobetasol 0.05% After the initial application for 6 weeks continue using the medication for maintenance therapy 2-3 times per week 1 appl topical BEDTIME 6 weeks 45 grams 2RF Coding Level of Care Code Tele Est Pt Level 3 (72311) Diagnoses Lichen sclerosus L90.0
--- OUTSIDE RECORDS SUMMARY | 2024-11-16 13:24 | XMS_ITS | Encounter Summary ---
Author Organization [employer] Address [address] [place] [address] Care Team Providers Care Primary Care Pediatrician Name Role Phone Phyllis Silva MD Primary Care Provider [phone] Valentín Moreno PharmD Unavailable [phone] Encounter Details Date Type Department Care Team (Late st Contact Info) Description 08/21/2022 Orders Only [facility] [address] [place] [address] Lacie Miles, RN [address] [place] [address] Social History Tobacco Use Types Packs/Day Years Used Date Smoking Tobacco: Never Assessed Comments Unknown Sex and Gender Information Value Date Recorded Sex Assigned at Female 06/15/2022 10:14 AM EDT Legal Sex Female 10:14 AM EDT Gender Identity Female 06/15/2022 10:14 AM EDT Sexual Orientation Straight 06/15/2022 10 :14 AM EDT documented as of this encounter Plan of Treatment Upcoming Encounters Date Type Department Care Team (Late st Contact Info) Description 12/15/2024 1:00 PM EDT Medication Management [facility] [address] [place] [address] Valentín Moreno, PharmD [address] [place] [address] documented as of this encounter Procedures Procedure Name Priority Date/Time Associated Diagnosis Comments TSH W/REFLEX TO FT4 Routine 09/22/2022 1 1:04 AM EST CBC WITH AUTO DIFFERENTIAL Routine 09/22/2022 11:04 AM EST HEMOGLOBIN A1C Routine 09/22/2022 11:04 AM EST LIPID PANEL, STANDARD Routine 09/22/2022 11:04 AM EST COMPREHENSIVE METABOLIC PANEL Routine 09/22/2022 11:04 AM EST HEMATOXYLIN AND EOSIN STAIN Routine 09/08/2022 10:46 AM EST GLUCOSE, WHOLE BLOOD Routine 09/08/2022 9:40 AM EST documented in this encounter Results * Hemoglobin A1c (09/22/2022 11:04 AM EST) Hemoglobin A1c 8.3 % [facility] Comment:Hemoglobin A1C Refer ence Range Adults: 4.8 - 6.0 % Non diabetic: < 6.0 % Goal: < 7.0 %Additional Action Suggested: > 8.0 %Note: Hemoglobin A1c results are invalid for patients with abnormal amounts of HbF. Blood transfusions may impact the HbA1c concentration in the patient sample. Estimated Average Glucose 192 mg/dL [facility] Comment:eAG = Estimated ave rage glucose which is %A1C expressed asaverage glucose, using the formula of the [id number] Glucose study (ADAG), Diabetes Care, Vol.31,#8,Mar. 2007 09/22/2022 11:0 4 AM EST 09/22/2022 11:04 AM EST us [facility] External Provider LAB BLO OD ORDERABLES Final Result [facility] [address] [place] [phone] * TSH W/Reflex to FT4 (09/22/2022 11:04 AM EST) TSH reflex Free T4 2.16 0.32 - 4.0 uIU/mL [facility] 09/22/2022 11:0 4 AM EST 09/22/2022 11:04 AM EST [facility] External Provider LAB BLO OD ORDERABLES Final Result Performing Organization Address City/[facility]/ZIP Co de Phone Number [facility] [address] [place] [phone] * Lipid Panel, Standard (09/22/2022 11:04 AM EST) Triglycerides 167 mg/dL [facility] Comment:Desirable Triglyceri de: less than 150 mg/dLBorderline High Triglyceride 150-199 mg/dLHigh Triglyceride: 200-499 mg/dLVery High Triglyceride: greater than or equal to 5OO mg/dL Cholesterol 229 mg/dL [facility] Comment:Desirable Cholestero l: less than 200 mg/dLBorderline High Cholesterol: 200-239 mg/dLHigh Cholesterol: greater than 239 mg/dL LDL Cholesterol Calculated 152 mg/dl [facility] Comment:Desirable LDL: less than 100 mg/dLNear Optimal/Above Optimal LDL: 110- 129 mg/dLBorderline High LDL: 130-159 mg/dLHigh LDL: 160-189 mg/dLVery High LDL: greater than or equal to 190 mg/dL HDL Cholesterol 44 mg/dL [facility] Comment:Desirable HDL: great er than 40 mg/dL Note: This HDL assay may give artificially low results in patients with liver disease. 09/22/2022 11:0 4 AM EST 09/22/2022 11:04 AM EST [facility] External Provider LAB BLO OD ORDERABLES Final Result Performing Organization Address [facility]/ZIP Co de Phone Number [facility] [address] [place] [phone] * (ABNORMAL) Comprehensive Metabolic Panel (09/22/2022 11:04 AM EST) Pathologist [facility] Sodium 139 135 - 145 mmol/L [facility] Potassium 4.8 3.3 - 5.1 mmol/L [facility] Chloride 104 96 - 108 mmol/L [facility] Carbon Dioxide 23 22 - 29 mmol/L [facility] Anion Gap 17 12 - 20 [facility] Urea Nitrogen (BUN) 10 9 - 16 mg/dL [facility] Creatinine, Serum 0.76 0.5 - 1.4 mg/dL [facility] Estimated Glomerular Filt Rate >60 [facility] Comment:NOTE: For -Am erican individuals, multiply the result by 1.210.Chronic Kidney Disease: Estimated GFR < 60 mL/min/1.05r8Cxghve Kidney Disease: Estimated GFR < 15 mL/min/1.73m2 Glucose 248(H) 60 - 115 mg/dL [facility] Calcium 9.7 8.4 - 10.2 mg/dL [facility] Bilirubin, Total 0.5 0.0 - 1.0 mg/dL [facility] Aspartate Amino Transferase 28 5 - 31 U/L [facility] Alanine Aminotransferase 52(H) 0 - 31 U/L [facility] Total Protein 7.2 6.5 - 8.0 g/dL [facility] Albumin Level 4.6 3.5 - 5.0 g/dL [facility] Alkaline Phosphatase 135(H) 39 - 117 U/L [facility] 09/22/2022 11:0 4 AM EST 09/22/2022 11:04 AM EST us [facility] External Provider LAB BLO OD ORDERABLES Final Result [facility] [address] [place] [phone] [phone] * CBC auto differential (09/22/2022 11:04 AM EST) White Blood Count 6.2 4.8 - 10.8 X10*3/uL [facility] Red Blood Count 4.90 4.20 - 5.50 X10*6/uL [facility] Hemoglobin 14.2 12.0 - 16.0 g/dl [facility] Hematocrit 41.8 37.0 - 47.0 % [facility] Mean Corpuscular Volume 85.3 80.0 - 98.0 fL [facility] Mean Corpuscular Hemoglobin 29.0 27.0 - 33.0 pg [facility] Mean Corpuscular HGB Conc 34.0 31.0 - 35.0 g/dl [facility] Red Cell Distribution Width 12.0 11.0 - 16.0 % [facility] Platelet Count 231 160 - 400 X10*3/uL [facility] Mean Platelet Volume 11.9 9.4 - 12.3 fL [facility] Neutrophils Percent Auto 53.8 45 - 73 % [facility] Imm Gran Pct Auto 0.3 0.0 - 0.4 % [facility] Lymphocytes Percent Auto 35.2 20 - 40 % [facility] Monocytes Percent Auto 6.6 2 - 11 % [facility] Eosinophils Percent Auto 3.5 0 - 4 % [facility] Basophils Percent Auto 0.6 0 - 2 % [facility] NRBC Pct Auto 0.0 0.0 - 0.2 /100WBC [facility] Neutrophils Absolute Auto 3.3 2.0 - 8.3 x10*3/uL [facility] Imm Gran Abs Auto 0.02 0.00 - 0.03 X10*3/uL [facility] Lymphocytes Absolute Auto 2.2 1.2 - 4.9 X10*3/uL [facility] Monocytes Absolute Auto 0.4 0.1 - 1.2 X10*3/uL [facility] Eosinophils Absolute Auto 0.2 0.0 - 0.4 X10*3/uL [facility] Basophils Absolute Auto 0.0 0.0 - 0.2 X10*3/uL [facility] NRBC Abs Auto 0.000 0.0 - 0.012 X10*3/uL [facility] 09/22/2022 11:0 4 AM EST 09/22/2022 11:04 AM EST us [facility] External Provider LAB BLO OD ORDERABLES Final Result [facility] [address] [place] [phone] * Hematoxylin and Eosin Stain (09/08/2022 10:46 AM EST) 09/08/2022 10:4 6 AM EST 09/08/2022 12:35 PM EST Narrative [facility] - 09/09/2022 12:25 PM EST ----- ------- Name: Lilia Stewart ?Age/Sex: 47/F ? : 1975 Unit#: [id number] ?? Attend Dr: Reuben Walls MD ?Re09/08/22 ?Status: DEP SDC ? Location: HO.SSS ?Disch: ? ----- ------- SPEC : [id number] ?RECD: 09/08/22-5 ? STATUS: ??SOUT ? REQ NUM: [id number] ? RYAN: 09/08/22-1046 ? SUBM DR: Reuben Walls MD ? ENTERED: ??09/08/22 ?SP TYPE: Surgical ? OTHR DR: Phyllis Silva MD ? ORDERED: ??HE Stain/5, Gross Micro L4/2 ? COMMENTS: Part B: ??One of the tissue fragments is tiny and may be ?difficult to identify during processing and may fail to ?survive processing. ? Diagnosis ?? A. ??Colon, cecal polyp: ??Tubular adenoma; negative for high-grade dysplasia and ?? carcinoma. ? B. ??Colon, random right, biopsy: ??Colonic mucosa with no specific change; no evidence of ?? microscopic colitis. ?Clinical History Pre-Op Dx: ??Screening Post-Op Dx: Colonoscopy, snare polypectomy, biopsy, hemorrhoids, diverticulosis ?Microscopic Description Microscopic sections reviewed. ? Material Received ?? A: Cecal polyp ?? B: Random biopsy right colon for microscopic colitis ? Gross Description Received in two parts. Part A: ??Received in formalin labeled Cecal polyp are five glistening, semitranslucent, soft, winters and winters-pink, irregular tissue fragments, ranging from 0.1 to 0.3 cm. in greatest dimension, which are submitted in toto in a single cassette labeled A. Part B: ??Received in formalin labeled Random right colon biopsy, microscopic colitis are two glistening, semitranslucent, soft, winters, irregular and rectangular tissue fragments, measuring 0.15 and 0.3 cm. in greatest dimension, which are submitted in toto in a single cassette labeled B. CEDS ? CONTINUED ON NEXT PAGE ----- ------- Name: Lilia Stewart ?Age/Sex: 47/F ? : 1975 Unit#: [id number] ?? Attend Dr: Reuben Walls MD ?Re09/08/22 ?Status: DEP [facility] ? Location: HO.SSS ?Disch: ? ----- ------- SPEC : [id number] ?RECD: 09/08/22-1235 ? STATUS: ??SOUT ? REQ NUM: [id number] ? RYAN: 09/08/22-1046 ? SUBM DR: Reuben Walls MD ? ENTERED: ??09/08/22-1424 ?SP TYPE: Surgical ? OTHR DR: Phyllis Silva MD ? ORDERED: ??HE Stain/5, Gross Micro L4/2 ? COMMENTS: Part B: ??One of the tissue fragments is tiny and may be ?difficult to identify during processing and may fail to ?survive processing. Copies To: ?? Reuben Walls MD ?? [address] [facility] ?? [place] [address] ?? [phone] ?? Phyllis Silva MD ?? [address] ?? [place] [address] ?? ----- ------- Signed (signature on file) Mona Avila 09/09/22 1225 ? ----- ------- ? END OF REPORT ? [facility] External Provider LAB BLO OD ORDERABLES Final Result Performing Organization Address [facility] de Phone Number [facility] [address] [place] [phone] * (ABNORMAL) GLUCOSE, WHOLE BLOOD (09/08/2022 9:40 AM EST) Glucose, Whole Blood 198(H) 60 - 115 mg/dL [facility] Comment:METER #: [id number] 09/08/2022 9:40 AM EST 09/08/2022 9:43 AM EST [facility] External Provider LAB BLO OD ORDERABLES Final Result Performing Organization Address [facility] de Phone Number [facility] [address] [place] [address] [phone] documented in this encounter Visit Diagnoses Not on filedocumented in this encounter Care Teams Primary Care Pediatrician Relationship Specialty Start Date End Date Phyllis Silva MD [address] [place], [place] [phone] PCP - General Family Medicine 08/16/18 Valentín Moreno, PharmD [address] [place] [address] Pharmacist Internal Medicine 05/25/23 documented as of this encounter
--- OUTSIDE RECORDS SUMMARY | 2024-11-16 13:25 | XMS_ITS | Encounter Summary ---
Author Organization [email or web address] Address [address] [facility] [address] [place] [address] Care Team Providers Care Barge Loader Name Role Phone Phyllis Silva MD Primary Care Provider [phone] Valentín Moreno PharmD Unavailable [phone] Encounter Details Date Type Department Care Team (Late st Contact Info) Description 12/16/2022 Orders Only [facility] [address] [place] [address] Lani Silver LPN Social History Tobacco Use Types Packs/Day Years [...] Description 12/15/2024 1:00 PM EDT Medication Management [facility] [address] [place] [address] Valentín Moreno, PharmD [address] [place] [address] documented as of this encounter Visit Diagnoses Not on filedocumented in this encounter Care Teams Barge Loader Relationship Specialty Start Date End Date Phyllis Silva MD [address] [place], [place] [phone] PCP - General Family Medicine 08/16/18 Valentín Moreno, JulioD [address] [place], [place] [phone] Pharmacist Internal Medicine 05/25/23 documented as of this encounter
--- OUTSIDE RECORDS SUMMARY | 2024-11-16 13:25 | XMS_ITS | Encounter Summary ---
Author Organization [email or web address] Address [address] [facility] [address] [place] [address] Care Team Providers Care Android Ios Developer Name Role Phone Phyllis Silva MD Primary Care Provider [phone] Valentín Moreno PharmD Unavailable [phone] Encounter Details Date Type Department Care Team (Late st Contact Info) Description 12/30/2023 Abstract [facility] [address] [place] [address] Phyllis Silva MD [address] [place] [address] Social History Tobacco Use Types Packs/Day Years Used Date Smoking Tobacco: Never Passive Smoke Exposure: Never Smokeless Tobacco: Never Depression Answer Date Recorded Patient Health Questionnaire-9 Score 4 02/22/2023 Housing Stability Answer Date Recorded What is your housing situation today? I have david khan 05/31/[address] you li ve. Do you have problems with any of the following? None of the above 05/31/2023 Food Insecurity Answer Date Recorded Within the past 12 months, y ou worried that your food would run out before you got money to buy more: Never True 05/31/2023 Within the past 12 months,th e food you bought just didn't last and you didn't have enough money to get more: Never True Transportation Answer Date Recorded In the past 12 months, has l ack of transportation kept you from medical appts, meetings, work or from getting things needed for daily living? No 05/31/2023 Utilities Answer Date Recorded In the past 12 months, has t he electric, gas, oil or water company threatened to shut off services in your home? No 05/31/2023 Depression Answer Date Recorded Patient Health Questionnaire-2 Score 1 02/22/2023 Comments Unknown Sex and Gender Information Value [...] Description 12/15/2024 1:00 PM EDT Medication Management [facility] [address] [place] [address] Valentín Moreno PharmD [address] [place] [address] documented as of this encounter Goals Goal Patient Goal Type Associated Problems Recent Progress Patient-Stated? Author Blood Pressure < 140/90 Blood Pressure 118/84(2023 1:34 PM EST) No Valentín Moreno, PharmAmber Hemoglobin A1c < 7 Result Component 6.4( 1:32 PM EST) No Valentín Moreno PharmD documented as of this encounter Procedures Procedure Name Priority Date/Time Associated Diagnosis Comments MAMMOGRAPHY Routine 02/19/2023 documented in this encounter Results * Mammography (02/19/2023) Mammogram BIRADS 1 Normal, Abnormal, BIRADS 1 , BIRADS 2 Anatomical Region Laterality Modality Other us Historical Provider HEALTH MAINTENANCE Final Result documented in this encounter Visit Diagnoses Not on filedocumented in this encounter Additional Health Concerns Assessment Noted Time PHQ-9 Depression Total Score: 4 02/23/20 23 1:20 PM EDT documented as of this encounter Care Teams Android Ios Developer Relationship Specialty Start Date End Date Phyllis Silva MD [address] [place] [address] PCP - General Family Medicine 08/16/18 Valentín Moreno, JulioD [address] [place] [address] Pharmacist Internal Medicine 05/25/23 documented as of this encounter
--- OUTSIDE RECORDS SUMMARY | 2024-11-16 13:25 | XMS_ITS | Encounter Summary ---
Author Organization [employer] Address [address] [facility] 7 [place] [address] Care Team Providers Care Resin Remover Name Role Phone Phyllis Silva MD Primary Care Provider [phone] Valentín Moreno PharmD Unavailable [phone] Reason for Referral * Consultation (Routine) - Authorized Specialty Diagnoses / Procedures Referred By Contac t Referred To Contact Pharmacy Diagnoses Hypertension, unspecified type Type 2 diabetes mellitus without complication, without long-term current use of insulin ([facility]) Phyllis Silva MD [address] [place] [address] Phone: tel: fax: Referral ID Status Reason Start Date Expiration Date Visits Requested Visits Authorized [id number] Authorized Consult and Treat 06/27/2024 06/27/2025 6 6 Encounter Details Date Type Department Care Team (Late st Contact Info) Description 06/27/2024 Orders Only [facility] [address] [place] [address] Phyllis Silva MD [address] [place] [address] Hypertension, unspecified type (Primary Dx); Type 2 diabetes mellitus without complication, without long-term current use of insulin ([facility]) Social History Tobacco Use Types Packs/Day Years Used Date Smoking Tobacco: Never Passive Smoke Exposure: Never Smokeless Tobacco: Never Alcohol Answer Date Recorded Frequency of Alcohol Consumption Not on file 02/22/2024 Average Number of Drinks Not on file 024 Frequency of Binge Drinking Not on file 04/2024 Score 0 02/22/2024 Depression Answer Date Recorded Patient Health Questionnaire-9 [...] Description 12/15/2024 1:00 PM EDT Medication Management [facility] [address] [place] [address] Valentín Moreno, PharmD [address] [place], [place] [phone] Scheduled Referrals Name Type Priority Associated Diagnoses Orde r Schedule Referral to Pharmacy CDTM Outpatient Referral Routine Hypertension, unspecified type Type 2 diabetes mellitus without complication, without long-term current use of insulin ([facility]) Ordered: 06/27/2024 documented as of this encounter Goals Goal Patient Goal Type Associated Problems Recent Progress Patient-Stated? Author Blood Pressure < 140/90 Blood Pressure 118/84(2023 1:34 PM EST) No Valentín Moreno PharmD Hemoglobin A1c < 7 Result Component 6.4( 1:32 PM EST) No Valentín Moreno PharmD documented as of this encounter Visit Diagnoses Diagnosis Hypertension, unspecified type- Primary Type 2 diabetes mellitus without complication, without long-term current use of insulin ([facility]) documented in this encounter Additional Health Concerns Assessment Noted Time PHQ-9 Depression Total Score: 4 02/23/20 23 1:20 PM EDT documented as of this encounter Care Teams Resin Remover Relationship Specialty Start Date End Date Phyllis Silva MD [address] [place] [address] PCP - General Family Medicine 08/16/18 Valentín Moreno PharmD [address] [place] [address] Pharmacist Internal Medicine 05/25/23 documented as of this encounter
--- OUTSIDE RECORDS SUMMARY | 2024-11-16 13:25 | XMS_ITS | Encounter Summary ---
Author Organization [employer] Address [address] [facility] 7 [place] [address] Care Team Providers Care Superintendent Transmission Name Role Phone Phyllis Silva MD Primary Care Provider [phone] Valentín Moreno PharmD Unavailable [phone] Reason for Referral * Consultation (Routine) - Authorized Specialty Diagnoses / Procedures Referred By Contac t Referred To Contact Pharmacy Diagnoses Type 2 diabetes mellitus without complication, without long-term current use of insulin (CMS/HCC) Hypertension, unspecified type Phyllis Silva MD [address] [place] [address] Phone: tel: fax: Referral ID Status Reason Start Date Expiration Date Visits Requested Visits Authorized [id number] Authorized Consult and Treat 05/15/2024 05/15/2025 6 6 Encounter Details Date Type Department Care Team (Late st Contact Info) Description 05/15/2024 Orders Only [facility] [address] [place] [phone] Phyllis Silva MD [address] [place] [phone] Type 2 diabetes mellitus without complication, without long-term current use of insulin (CMS/HCC) (Primary Dx); Hypertension, unspecified type Social History Tobacco Use Types Packs/Day Years [...] Description 12/15/2024 1:00 PM EDT Medication Management [facility] [address] [place] [address] Valentín Moreno, PharmD [address] [place] [address] Scheduled Referrals Name Type Priority Associated Diagnoses Orde r Schedule Referral to Pharmacy CDTM Outpatient Referral Routine Type 2 diabetes mellitus without complication, without long-term current use of insulin ([facility]) Hypertension, unspecified type Ordered: 05/15/2024 documented as of this encounter Goals Goal Patient Goal Type Associated Problems Recent Progress Patient-Stated? Author Blood Pressure < 140/90 Blood Pressure 118/84(2023 1:34 PM EST) No Valentín Moreno PharmD Hemoglobin A1c < 7 Result Component 6.4( 1:32 PM EST) No Valentín Moreno PharmD documented as of this encounter Visit Diagnoses Diagnosis Type 2 diabetes mellitus without complication, without long-term current use of insulin ([facility])- Primary Hypertension, unspecified type documented in this encounter Additional Health Concerns Assessment Noted Time PHQ-9 Depression Total Score: 4 02/23/20 23 1:20 PM EDT documented as of this encounter Care Teams Superintendent Transmission Relationship Specialty Start Date End Date Phyllis Silva MD [address] [place] [address] PCP - General Family Medicine 08/16/18 Valentín Moreno PharmD [address] [place] [address] Pharmacist Internal Medicine 05/25/23 documented as of this encounter
--- OUTSIDE RECORDS SUMMARY | 2024-11-16 13:25 | XMS_ITS | Clinical Summary ---
Author Organization [employer] Address [address] [facility] [address] [place] [address] Care Team Providers Care General Assistant Name Role Phone Phyllis Silva MD Primary Care Provider [phone] Valentín Moreno PharmD Unavailable [phone] Allergies No known active allergies Medications * This document contains information received from the source organization and may not represent a complete record from that organization. Alcohol Swabs (Alcohol Prep) pads Check blood glucose 3 times daily and as needed 100 each 023 Active FreeStyle lancets 1 each by Other route 3 times daily. 100 each 023 Active Blood Glucose Monitoring Suppl (FreeStyle Lite) w/Device kit 1 each 3 times daily. 1 kit 023 Active FREESTYLE LITE test stripIndication s:Type 2 diabetes mellitus without complication, without long-term current use of insulin ([facility]) Check blood glucose three times daily 100 each 023 Active cetirizine (ZyrTEC) 10 MG tablet Take 1 tablet (10 mg) by mouth in the morning. 30 tablet 023 Active Blood Pressure kitIndications: Essential hypertension Use as directed daily 1 kit 023 Active diphenhydrAMINE (BENADryl) 25 MG tablet Take 1 tablet (25 mg) by mouth if needed at bedtime (cough). 30 tablet 1 024 Active Breo Ellipta 200-25 MCG/ACT aerosol powder INHALE 1 PUFF BY MOUTH EVERY DAY 024 Active amLODIPine (Norvasc) 5 MG tabletIndicatio ns:Hypertension , unspecified type Take 1 tablet by mouth daily 90 tablet 1 024 Active Ventolin HFA 108 (90 Base) MCG/ACT inhaler INHALE 2 PUFFS BY MOUTH EVERY 4 HOURS NEEDED FOR WHEEZING OR SHORTNESS OF BREATH 18 g 1 024 Active omeprazole (PriLOSEC) [address] capsule Take 1 capsule (20 mg) by mouth before breakfast and before evening meal. Do not crush or chew.TAKE 1 CAPSULE BY MOUTH TWICE DAILY BEFORE A MEAL 180 capsule 3 024 Active Vitamin D High Potency 25 MCG (1000 UT) capsuleIndicati ons:Vitamin deficiency TAKE 1 CAPSULE BY MOUTH EVERY DAY 90 capsule 3 024 Active clobetasol (Temovate) 0.05 % cream APPLY TO THE AFFECTED AREA(S) AT BEDTIME POR 6 WEEKS DESPUES DE LA APLICACION INICIAL POR 6 SEMANAS CONTINUE USANDO PARA TERAPIA DE MANTENIMIENTO 2-3 VECES POR SEMANA 45 g 3 024 Active traZODone (Desyrel) 100 MG tabletIndicatio ns:Difficulty sleeping TAKE 1 TABLET BY MOUTH AT BEDTIME AFTER A MEAL 30 tablet 024 Active metFORMIN XR (Glucophage-XR) 500 MG 24 hr tablet TAKE 2 TABLETS BY MOUTH TWICE DAILY, DO NOT BREAK, CRUSH, DISSOLVE OR CHEW 120 tablet 024 Active Dulaglutide (Trulicity) 1.5 MG/0.5ML solution auto-injectorIn dications:Type 2 diabetes mellitus without complication, without long-term current use of insulin ([facility]) Inject 1.5 mg under the skin every 7 (seven) days. 2 mL 024 Active senna (Senokot) 8.6 MG tablet TAKE 2 TABLETS BY MOUTH EVERY DAY AT BEDTIME NEEDED FOR CONSTIPATION Active hydrOXYzine pamoate (Vistaril) 25 MG capsuleIndicati ons:Anxiety Take 1 capsule (25 mg) by mouth every 6 (six) hours if needed for anxiety. May take 2 capsules 4x/day prn 60 capsule 024 Active FLUoxetine (PROzac) 20 MG capsule TAKE 2 CAPSULES BY MOUTH EVERY DAY IN THE MORNING 60 capsule 1 024 Active atorvastatin (Lipitor) 10 MG tabletIndicatio ns:Type 2 diabetes mellitus without complication, without long-term current use of insulin (CMS/HCC) TAKE 1 TABLET BY MOUTH EVERY DAY 90 tablet 1 025 Active losartan (Cozaar) 25 MG tabletIndicatio ns:Hypertension , unspecified type TAKE 1 TABLET BY MOUTH EVERY DAY IN THE MORNING 90 tablet 1 025 Active cyanocobalamin (Vitamin B-12) 1000 MCG tablet TAKE 1 TABLET BY MOUTH EVERY DAY 90 tablet 025 Active lisinopril 30 MG tabletIndicatio ns:Essential hypertension Take 1 tablet (30 mg) by mouth in the morning. 30 tablet 11 023 2023 Discontinued Active Problems Problem Noted Date Diagnosed Date Abnormal liver function test 11/30/2023 Assessment & Plan (11/30/2023 5:01 PM EDT): Evaluate US Lichen sclerosus 09/05/2023 Assessment & Plan (09/05/2023 11:47 AM EST): - vaginal area - judicious use of clobetasol Tubular adenoma of colon 09/05/2023 Assessment & Plan (09/05/2023 12:05 PM EST): 09/08/[address] Walls. Pathology report tubular adenoma Urinary incontinence 09/05/2023 Assessment & Plan (09/05/2023 12:11 PM EST): - likely mixed, stress and OAB - Discussed about Pelvic floor muscle exercise - Will write script for incontinence supply - recommended to discuss with her SCABBLER for stress incontinence evaluation and treatment Chronic idiopathic constipation 02/22/2023 Assessment & Plan (02/22/2023 2:12 PM EDT): Last seen by GI on 09/22/22. -continue Fiber-rich diet -Colonoscopy on 09/08/22, Dx Tubular Adenoma. Recommended repeat in 3yrs. -Continue Senna Xanthelasma of eyelid, bilateral 02/22/2023 Assessment & Plan (09/05/2023 11:49 AM EST): -seen by optmetrist and patient education was provided -seen by explosives handler and was informed that treatment is considered as cosmetic, not medical -patient is not interested in pursuing aesthetic surgery Assessment & Plan (02/22/2023 1:51 PM EDT): -seen by optmetrist and patient education was provided -monitor for now Alopecia areata 02/22/2023 Assessment & Plan (02/22/2023 1:51 PM EDT): -seen by Dr. Pagan -treated with intralesional steroid, which has been effective -Normal TSH in Apr 2020 -RPR negative in Apr 2019 -Trialed hydrocortisone lotion to scalp, which was ineffective -Trialed minoxidil which was not satisfactory outcome -seen by Dr. Pagan and received intralesional steroid, which has been effective Postmenopausal bleeding 02/22/2023 Assessment & Plan (09/05/2023 12:09 PM EST): - Followed by SCABBLER - PAP in January 2023, NILM with negative high-risk HPV - US in January 2023 showed: normal thickened of endometrium; right ovarian cyst 1.8 cm. Assessment & Plan (02/22/2023 2:07 PM EDT): Scheduled for Endometrial Biopsy on 03/09/23 -US showed: normal thickened of endometrium; right ovarian cyst 1.8 cm suspected. Cobalamin deficiency 02/17/2023 Primary osteoarthritis involving multiple joints 02/17/2023 Assessment & Plan (02/22/2023 2:13 PM EDT): -Apr 2019 AYE / RF / ESR were wnl -Continue APAP prn -tried Tizanidine in the past -seen by Physical Therapy in the past -Recommended Acupuncture -continue working on lifestyle modifications Type 2 diabetes mellitus 02/17/2023 Assessment & Plan (02/22/2024 3:00 PM EDT): diagnosed in July 2020 -A1C 5.9% on 02/22/24. -continue metformin ER 1g twice daily, lik -continue working on lifestyle modifications -Comprehensive / dilated eye exam: 03/02/22 at [facility], no diabetic retinopathy -Comprehensive foot exam: 08/04/21 -Last microalbumin test: 02/24/23 UACR 9.2 -Last lipid profile: 08/25/23 -Last dental exam: -follow up in 3 mo or sooner prn Assessment & Plan (11/30/2023 5:01 PM EDT): diagnosed in July 2020 -A1C 5.7% on 11/30/23. -continue metformin ER 1g twice daily, lik -continue working on lifestyle modifications -Comprehensive / dilated eye exam: 03/02/22 at [facility], no diabetic retinopathy -Comprehensive foot exam: 08/04/21 -Last microalbumin test: 02/24/23 UACR 9.2 -Last lipid profile: 08/25/23 -Last dental exam: -follow up in 3 mo or sooner prn Assessment & Plan (09/05/2023 11:56 AM EST): diagnosed in July 2020 -A1C 6.7% on 06/30/23. -continue metformin ER 1g twice daily, lik -continue working on lifestyle modifications -Comprehensive / dilated eye exam: 03/02/22 at [facility], no diabetic retinopathy -Comprehensive foot exam: 08/04/21 -Last microalbumin test: 12/13/20 UACR 28 -Last lipid profile: 08/06/20 -Last dental exam: -follow up in 3 mo or sooner prn Assessment & Plan (02/28/2023 8:34 AM EDT): diagnosed in July 2020 -A1C 6.7% on 04/22/22, we don't have A1C today, but expected to be high because RBG is > 300, and it is > 2 hour PP. -continue metformin 500 mg once daily, likely need to adjust after checking A1C -continue working on lifestyle modifications -Comprehensive / dilated eye exam: 03/02/22 at [facility], no diabetic retinopathy -Comprehensive foot exam: 08/04/21 -Last microalbumin test: 12/13/20 UACR 28 -Last lipid profile: 08/06/20 -Last dental exam: Immunizations: Reviewed, updating Aspirin use: No strong indication at this time PHQ: Hx depression Dyslipidemia 08/26/2017 Assessment & Plan (02/22/2024 4:36 PM EDT): -Last lipid profile: 08/25/23 TC 165; TG 102; HDL 50; LDL 95 -Xanthelasma -Current medication: atorvastatin 10 mg qhs -Continue working on lifestyle modifications. Assessment & Plan (11/30/2023 5:04 AM EDT): -Last lipid profile: 08/25/23 TC 165; TG 102; HDL 50; LDL 95 -Xanthelasma -Current medication: atorvastatin 10 mg qhs -Continue working on lifestyle modifications. Assessment & Plan (09/05/2023 11:50 AM EST): -Last lipid profile: 08/25/23 TC 165; TG 102; HDL 50; LDL 95 -Xanthelasma -Current medication: atorvastatin 10 mg qhs -Continue working on lifestyle modifications. Assessment & Plan (02/22/2023 1:45 PM EDT): -Last lipid profile: 08/06/20 TC 214; TG 108; HDL 46; LD 146 -Xanthelasma -Not on statin currently -According to ACC/AHA guideline, 10-year ASCVD risk was 3.3 % and the benefit of statin therapy is uncertain. -Since she now has DM2, ASCVD risk is 6.3% and initiation of statin therapy is recommended -Continue working on lifestyle modifications. Gastroesophageal reflux disease 05/04/2012 Assessment & Plan (02/22/2023 2:09 PM EDT): -On 01/06/18 EGD done which showed normal exam except mild hiatal hernia. -Colonoscopy on 09/08/22, tubular adenoma, repeat in 3yrs -Previously prescribed sucralfate and omeprazole -continue omeprazole 20 mg prn Hypertension 05/04/2012 Assessment & Plan (02/22/2024 4:36 PM EDT): Goal BP < 140/90 per JNC-8, < 130/80 per ACC/AHA. BP not at goal today. -Continue monitoring home BP. -Continue working on life style modifications. -Continue amlodipine 5 mg nightly. -Cont losartan 25 mg daily for renal protection. -Treatment Hx --lisinopril 30 mg was discontinued in Aug 2023 due to cough --hydrochlorothiazide was discontinued in Aug 2023 due to weakness -07/14/17 Exercise stress test, asymptomatic, with EKG changes meeting criteria for ischemia: downsloping ST depression 1 mm inferiorly and V6, borderline V4-V6 with corrects by 1 min recovery. -07/16/17 Myocardial perfusion / nuclear stress test was normal with gated LVEF 59%. -Although exercise stress EKG was positive for ischemia, nuclear stress test was favorable for no ischemia. -f/u in 3 months Assessment & Plan (11/30/2023 2:10 PM EDT): Goal BP < 140/90 per JNC-8, < 130/80 per ACC/AHA. BP not at goal today. -Continue monitoring home BP. -Continue working on life style modifications. -Continue amlodipine 5 mg nightly. -Cont losartan 25 mg daily for renal protection. -Treatment Hx --lisinopril 30 mg was discontinued in Aug 2023 due to cough --hydrochlorothiazide was discontinued in Aug 2023 due to weakness -07/14/17 Exercise stress test, asymptomatic, with EKG changes meeting criteria for ischemia: downsloping ST depression 1 mm inferiorly and V6, borderline V4-V6 with corrects by 1 min recovery. -07/16/17 Myocardial perfusion / nuclear stress test was normal with gated LVEF 59%. -Although exercise stress EKG was positive for ischemia, nuclear stress test was favorable for no ischemia. -f/u in 3 months Assessment & Plan (09/05/2023 11:53 AM EST): Goal BP < 140/90 per JNC-8, < 130/80 per ACC/AHA. BP not at goal today. -Continue monitoring home BP. -Continue working on life style modifications. -Continue amlodipine 5 mg nightly. -Add losartan 25 mg daily for renal protection. -Treatment Hx --lisinopril 30 mg was discontinued in Aug 2023 due to cough --hydrochlorothiazide was discontinued in Aug 2023 due to weakness -07/14/17 Exercise stress test, asymptomatic, with EKG changes meeting criteria for ischemia: downsloping ST depression 1 mm inferiorly and V6, borderline V4-V6 with corrects by 1 min recovery. -07/16/17 Myocardial perfusion / nuclear stress test was normal with gated LVEF 59%. -Although exercise stress EKG was positive for ischemia, nuclear stress test was favorable for no ischemia. -f/u in 3 months Assessment & Plan (02/22/2023 1:43 PM EDT): Goal BP < 140/90. BP not at goal today. -Encouraged to check BP at home more frequently. -Continue working on life style modifications. -Continue lisinopril 30 mg nightly. -07/14/17 Exercise stress test, asymptomatic, with EKG changes meeting criteria for ischemia: downsloping ST depression 1 mm inferiorly and V6, borderline V4-V6 with corrects by 1 min recovery. -07/16/17 Myocardial perfusion / nuclear stress test was normal with gated LVEF 59%. -Although exercise stress EKG was positive for ischemia, nuclear stress test was favorable for no ischemia. 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 Or adding bupropion. -pt was able to contract her safety today Assessment & Plan (09/05/2023 11:52 AM EST): -Continue fluoxetine 40 mg -Continue trazodone 100 mg qhs -Continue hydroxyzine prn -Consider changing fluoxetine to citalopram or escitalopram. Or adding bupropion. -pt was able to contract her safety today Assessment & Plan (02/22/2023 1:46 PM EDT): -recently increased fluoxetine to 40 mg -Continue fluoxetine 40 mg -Continue trazodone 100 mg qhs -Continue hydroxyzine prn -pt was able to contract her safety today -pt agreed to be referred to [facility] Resolved Problems Problem Noted Date Diagnosed Date Resolved Date Chronic cough 08/31/2023 02/21/2024 Assessment & Plan (11/28/2023 6:07 PM EDT): - since Apr 2023 - DDx allergic rhinitis; asthma; post-COVID; ILD - Following with [facility] pulmonology, last seen by Dr. 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 - Currently prescribed fluticasone furonate / vilanterol (Breo) Assessment & Plan (09/05/2023 11:43 AM EST): - since Apr 2023 - DDx allergic rhinitis; asthma; post-COVID; ILD - Following with [facility] pulmonology; upcoming appointment for PFT and RAST - Discontinued lisinopril, but cough did not improve - continue current treatment per nursing teacher Lichen sclerosus of vulva 02/22/2023 Encounters Date Type Department Care Team Description 11/02/2024 Orders Only GENERIC EXTERNAL DATA DEPARTMENT Provider, Generic External Data 10/27/2024 Population Health Risk Score Community [facility] ([facility] Department [address] [id number] Provider, Population Health Generic 09/18/2024 Refill [facility] [address] [place] [address] Chata Thomas ANP 08/22/2024 Refill [facility] [address] [place] [address] Phyllis Silva MD Type 2 diabetes mellitus without complication, without long-term current use of insulin ([facility]); Hypertension, unspecified type from Last 3 Months Immunizations Name Administration Dates Next Due Hep B, adult 08/04/2018,01/13/2018,08/16/2006 Influenza Injectable Quadriv alant Preservative Free IIV4 MDCK 05/21/2023 Influenza injectable quadriv alent IIV4 with preservative 08/26/2017 Influenza injectable quadriv alent preservative free 05/27/2021,04/16/2020 Influenza, IIV3, injectable 08/06/2014,1 ,07/07/2010,2008,05/25/2008 Influenza, Split (incl. gurinder fied surface antigen) 06/02/2013,05/04/2012 Influenza, seasonal, injecta ble, preservative free 06/08/2024 MMR 01/13/2018,09/21/2006 Mumps 09/09/2006 Pfizer Covid-19 Vaccine 12+ 06/08/2024,0 02/22/2024,12/29/2023(Deferr ed: Patient decision - Ok with vaccines, not interested in additional Covid-19 vaccines) Pfizer Covid-19 Vaccine 12+ Bivalent 10/26/2022 Pneumococcal Conjugate PCV 20 02/22/2023 Rubella 09/09/2006 TD (adult), 2 Lf tetanus tox oid, preservative free, adsorbed 03/03/2006,12/08/1996 Tdap 02/22/2023,05/04/2012 Varicella 01/13/2018,09/09/2006 Zoster, Recombinant 08/02/2023,05/31/2023 Family History Medical History Relation Name Comments Diabetes Father Hypertension Father Aortic stenosis Mother due to rheum atic fever Coronary artery disease Mother Breast cancer Sister Relation Name Status Comments Father Mother Sister Social History Tobacco Use Types Packs/Day Years Used Date Smoking Tobacco: Never Passive Smoke Exposure: Never Smokeless Tobacco: Never Tobacco Cessation:Counseling Given: Not Answered Alcohol Answer Date Recorded Frequency of Alcohol [...] Orientation Straight 06/15/2022 10 :14 AM EDT Last Filed Vital Signs Vital Sign Reading Time Taken Comments Blood Pressure 118/84 08/14/2024 1:34 PM EST Pulse 92 08/14/2024 1:34 PM EST Temperature 36.2 ??C (97.1 ??F) 06/08/2024 3:01 PM ED T Respiratory Rate 18 06/08/2024 3:01 PM EDT Oxygen Saturation 99% 06/08/2024 3:01 PM EDT Inhaled Oxygen Concentration - - Weight 73.9 kg (163 lb) 02/22/2024 2:34 PM EDT Height 162.6 cm (5' 4 ) 06/08/2024 3:01 PM EDT Body Mass Index 27.49 11/30/2023 1:36 PM EDT Plan of Treatment Upcoming Encounters Date Type Department Care Team (Late st Contact Info) Description 12/15/2024 1:00 PM EDT Medication Management [facility] [address] [place] [address] Valentín Moreno, PharmD [address] [place] [address] Health Maintenance Due Date Last Done Comments CT Colonography 1975 FIT DNA/Cologuard 1975 FIT 1975 FOBT 1975 Sigmoidoscopy 1975 Family Planning (PISQ) 01/15/1988 Depression Screening 02/23/2024 02/22/2023, 02/23/20 23 SDOH Screening 02/23/2024 02/22/2023 Diabetes: Urine Protein Screening 02/25/2024 02/24/2023, 08/13/2021, 12/13/2020 Lipid Panel 08/25/2024 08/25/2023, 02/13, 09/22/2022, Additional history exists Diabetes: Foot Exam 08/31/2024 08/31/2023, 08/31/2023, 08/31/2023, Additional history exists Diabetes: Hemoglobin A1C 02/12/2025 024, 02/22/2024, 11/30/2023, Additional history exists Alcohol/Substance Use Screening 02/21/2025 02/22/2024 Tobacco Screening 06/23/2025 06/23/2024 Mammogram 03/01/2026 03/01/2024, 02/19/2023 Eye Exam 06/14/2026 06/14/2024, 05/18, 06/14/2024, Additional history exists Colonoscopy 09/08/2027 09/08/2022 Colorectal Cancer Screening 09/08/2027 Cervical Cancer Screening 02/04/2028 HPV/Cotest 02/04/2028 05/19/2016 Pap Smear 02/04/2028 02/03/2023 DTaP/Tdap/Td Vaccines (3 - Td or Tdap) 02/22/2033 02/22/2023, 05/04/2012, 03/03/2006, Additional history exists RSV Patients and Patients Aged 60 years or older (1 - 1-dose 75+ series) 01/15/2048 Hepatitis B Vaccines Completed 08/04/2018, 01/13/2018, 08/16/2006 HIV Screening Completed 12/13/2020 Hepatitis C Screening Completed 12/13/2020 Pneumococcal Vaccine: 50+ Years Completed 02/22/2023 Zoster Vaccines Completed 08/02/2023, 05/31/2023 COVID-19 Vaccine Completed 06/08/2024, 04/2024, 10/26/2022, Additional history exists Influenza Vaccine Completed 06/08/2024, , 05/27/2021, Additional history exists HIB Vaccines Aged Out No longer eligi ble based on patient's age to complete this topic HPV Vaccines Aged Out No longer eligi ble based on patient's age to complete this topic Hepatitis A Vaccines Aged Out No long er eligible based on patient's age to complete this topic IPV Vaccines Aged Out No longer eligi ble based on patient's age to complete this topic Meningococcal Vaccine Aged Out No sydni patrick eligible based on patient's age to complete this topic RSV under 20 months Aged Out No longe r eligible based on patient's age to complete this topic Rotavirus Vaccines Aged Out No longer eligible based on patient's age to complete this topic Goals Goal Patient Goal Type Associated Problems Recent Progress Patient-Stated? Author Blood Pressure < 140/90 Blood Pressure 118/84(2023 1:34 PM EST) No Valentín Moreno PharmD Hemoglobin A1c < 7 Result Component 6.4( 1:32 PM EST) No Valentín Moreno PharmD Procedures Procedure Name Priority Date/Time Associated Diagnosis Comments HEMATOXYLIN AND EOSIN STAIN Routine 11/02/2024 2:39 PM EDT POCT GLYCATED HEMOGLOBIN, TOTAL Routine 08/14/2024 1:32 PM EST Type 2 diabetes mellitus without complication, without long-term current use of insulin ([facility]) BI MAMMOGRAM SCREENING TOMOSYNTHESIS BILATERAL Routine 03/01/2024 12:55 PM EDT LIPID PANEL, STANDARD Routine 08/25/2023 1:00 PM EST ALBUMIN, RANDOM URINE W/CREATININE Routine 02/24/2023 9:54 AM EDT PAP SMEAR Routine 02/03/2023 1:29 PM EDT HM COLONOSCOPY Routine 09/08/2022 [facility] HISTORICAL HEPATITIS C AB W/REFL TO HCV RNA, QN, PCR Routine 12/13/2020 1:18 PM EDT HIV 1/2 ANTIGEN/ANTIBODY, FOURTH GENERATION W/RFL Routine 12/13/2020 1:18 PM EDT [facility] HISTORICAL HPV MRNA E6/E7 Routine 05/19/2016 1:45 PM EDT from Last 3 Months or Most Recently Relevant to Health Maintenance Results * Hematoxylin and Eosin Stain (11/02/2024 2:39 PM EDT) 11/02/2024 2:39 PM EDT 11/03/2024 8:19 AM EDT [facility] - 11/07/2024 4:56 PM EDT ----- ------- Name: Lilia Stewart ?Age/Sex: 49/F ? : 1975 Unit#: [id number] ?? Attend Dr: Candido Deleon MD ?Re11/02/24 ?Status: DEP REF ? Location: HO.LNP ?Disch: ? ----- ------- SPEC : [id number] ? RECD: 11/03/24 ? STATUS: ??SOUT ? REQ NUM: [id number] ? RYAN: 11/02/24 ? SUBM DR: Candido Deleon MD ? ENTERED: ??11/03/24 ?SP TYPE: Surgical ? OTHR DR: Phyllis Silva MD ? ORDERED: ??HE Stain/3, Gross Micro L4, Specials Gr. 1, PASF ? Diagnosis ?? Vulva, posterior fourchette ulcer, biopsy: ??Small fragment of hyperkeratotic ?? skin/squamous mucosa with spongiosis and subepithelial hyalinized stroma; no atypia ?? identified; negative for fungi. ??See comment. ? Comment: ??The hyalinized stroma raises the possibility of lichen sclerosus. ?Clinical History Vulva lesion ?Microscopic Description Microscopic sections reviewed. ??No fungi are seen, supported by PAS stain. ? Material Received ?? Posterior fourchette ulcer ? Gross Description Received in formalin labeled ?posterior fourchette ulcer? is a minute fragment of translucent, white soft tissue measuring 0.2 cm in greatest dimension which is wrapped in lens paper and entirely submitted for microscopic examination, 1 piece in cassette A. ??([facility]) Special studies ordered and performed: PAS stain Copies To: ?? Phyllis Silva MD ?? [facility] ?? [address] ?? [place] [address] ?? [phone] ?? Candido Deleon MD ?? [facility] Women's Services ?? [address] ?? [place] [address] ?? [phone] ? CONTINUED ON NEXT PAGE ----- ------- Name: Lilia Stewart ?Age/Sex: 49/F ? : 1975 Unit#: [id number] ?? Attend Dr: Candido Deleon MD ?Re11/02/24 ?Status: DEP REF ? Location: HO.LNP ?Disch: ? ----- ------- SPEC : [id number] ? RECD: 11/03/24-818 ? STATUS: ??SOUT ? REQ NUM: [id number] ? RYAN: 11/02/24-4779 ? SUBM DR: Candido Deleon MD ? ENTERED: ??11/03/24 ?SP TYPE: Surgical ? OTHR DR: Phyllis Silva MD ? ORDERED: ??HE Stain/3, Gross Micro L4, Specials Gr. 1, PASF ? ----- ------- Signed (signature on file) Zaid Montes MD 11/07/24 0205 ? ----- ------- ? END OF REPORT ? us Generic External Data Provider LAB BLOOD ORDERAB LES Final Result [facility] [address] [place] [address] [phone] * (ABNORMAL) POCT HGB A1C (08/14/2024 1:32 PM EST) Hemoglobin A1C 6.4(A) 4.0 - 6.0 % QC Media Lot # [id number] Lot# Expiration Date , Blood 08/14/2024 1:32 PM EST Phyllis Silva MD POINT OF CARE TEST ENTER/EDIT OR DERABLES Final Result * BI Mammogram Screening Tomosynthesis Bilateral (03/01/2024 12:55 PM EDT) Anatomical Region Laterality Modality Breast Bilateral Mammography 03/01/2024 12:5 5 PM EDT Narrative 03/22/2024 2:09 PM EDT ? [facility] ? [address] ?[place] [address] ? Mammography Report ? Signed ? Patient: Lilia Stewart ?MR#: [id number] ?? 9 ? : 1975 ?Acct:[id number] ? Age/Sex: 49 / F ?ADM Date: 03/01/24 ? Loc: HO.MAMMO ? Attending Dr: Phyllis Silva MD ? Ordering Physician: Phyllis Silva MD ?Results: 1Negative ? Date of Service: 03/01/24 ?Follow Up: 1 Year From Orig ?? inal Mammogram ? Procedure(s): MM tomosynthesis screening BI ?? Accession Number(s): [id number] ? cc: Phyllis Silva MD ? EXAMINATION: ?? MM SCREENING DIGITAL BREAST TOMOSYNTHESIS, BILATERAL ? CLINICAL INFORMATION: ? Screening. Asymptomatic. ? COMPARISON: ?? Mammography: This study is compared with prior exams dating back to ?? 2015. ? TECHNIQUE: ?? Digital breast tomosynthesis is performed in both the craniocaudal and ?? mediolateral oblique views along with computer-aided detection (CAD). ?? Synthesized 2D images are generated from the tomosynthesis. ? FINDINGS: ?? The breasts are almost entirely fatty (ACR BI-RADS breast composition ?? Category a). ? There are no significant masses, abnormal calcifications, or other ?? abnormalities. ? MM/MM tomosynthesis screening BI ?? IMPRESSION: ?? No mammographic evidence of malignancy. ? ASSESSMENT: ? BI-RADS BI-RADS 1 - Negative ? RECOMMENDATION: ?? Routine annual mammography screening. ? 1 year F/U ? This examination should not preclude the clinical evaluation of a ?? suspicious palpable abnormality. ? This patient's information was entered into a reminder system with a ?? target due date for their next mammogram. ? Dictated By: ?Chika Nolan MD ? Signed By: ?<Electronically signed by Chika Nolan MD in OV> ? 03/22/24 1405 ? DD/ 1255 ? TD/TT: ? Judicial Reporter: ? Procedure Note Ariadne, Martina - 03/22/2024 [facility] [address] [place] [address] Mammography Report Signed Patient: Marvin Stewart#: [id number] 9 : 1975Acct:[id number] Age/Sex: 49 / FADM Date: 03/01/24 Loc: HO.MAMMO Attending Dr: Phyllis Silva MD Ordering Physician: Phyllis Silva MDResults: 1Negative Date of Service: 03/01/24Follow Up: 1 Year From Orig ina Mammogram Procedure(s): MM tomosynthesis screening BI Accession Number(s): [id number] cc: Phyllis Silva MD EXAMINATION: MM SCREENING DIGITAL BREAST TOMOSYNTHESIS, BILATERAL CLINICAL INFORMATION: Screening. Asymptomatic. COMPARISON: Mammography: This study is compared with prior exams dating back to 2016. TECHNIQUE: Digital breast tomosynthesis is performed in both the craniocaudal and mediolateral oblique views along with computer-aided detection (CAD). Synthesized 2D images are generated from the tomosynthesis. FINDINGS: The breasts are almost entirely fatty (ACR BI-RADS breast composition Category a). There are no significant masses, abnormal calcifications, or other abnormalities. MM/MM tomosynthesis screening BI IMPRESSION: No mammographic evidence of malignancy. ASSESSMENT: BI-RADS BI-RADS 1 - Negative RECOMMENDATION: Routine annual mammography screening. 1 year F/U This examination should not preclude the clinical evaluation of a suspicious palpable abnormality. This patient's information was entered into a reminder system with a target due date for their next mammogram. Dictated By: Chika Nolan MD Signed By: <Electronically signed by Chika Nolan MD in OV> 03/22/24 1405 DD/ 1255 TD/TT: Judicial Reporter: us Phyllis Silva MD IMG BI PROCEDURES Final Result * Lipid Panel, Standard (08/25/2023 1:00 PM EST) Triglycerides 102 <150 mg/dL [facility] Comment:Desirable Triglyceri de: less than 150 mg/dLBorderline High Triglyceride 150-199 mg/dLHigh Triglyceride: 200-499 mg/dLVery High Triglyceride: greater than or equal to 5OO mg/dL Cholesterol 165 <200 mg/dL [facility] Comment:Desirable Cholestero l: less than 200 mg/dLBorderline High Cholesterol: 200-239 mg/dLHigh Cholesterol: greater than 239 mg/dL LDL Cholesterol Calculated 95 <100 mg/dL [facility] Comment:Desirable LDL: less than 100 mg/dLNear Optimal/Above Optimal LDL: 110- 129 mg/dLBorderline High LDL: 130-159 mg/dLHigh LDL: 160-189 mg/dLVery High LDL: greater than or equal to 190 mg/dL HDL Cholesterol 50 >40 mg/dL [facility] Comment:Desirable HDL: great er than 40 mg/dL Note: This HDL assay may give artificially low results in patients with liver disease. 08/25/2023 1:00 PM EST 08/25/2023 4:07 PM EST Phyllis Silva MD LAB BLOOD ORDERABLES Final Resul t Performing Organization Address [facility] Co de Phone Number [facility] [address] [place] [phone] * Albumin, Random Urine W/Creatinine (02/24/2023 9:54 AM EDT) Creatinine, Urine 280.11 mg/dL [facility] Microalbumin Urine 26.0 mg/L [facility] Microalbum Creatinine Ratio Ur 9.2 ug/mg cr [facility] Comment:Albumin/Creatinine R atio Reference Ranges: Normal: < 30 ug/mg creatinine Microalbuminuria: 30 - 300 ug/mg creatinineClinical Albuminuria: > 300 ug/mg creatinine 02/24/2023 9:54 AM EDT 02/24/2023 11:12 AM EDT [facility] External Provider LAB URI NE ORDERABLES Final Result Performing Organization Address City/[facility] Co de Phone Number [facility] [address] [place] [phone] * Pap Smear (02/03/2023 1:29 PM EDT) 02/03/2023 1:29 PM EDT 02/04/2023 8:20 AM EDT Narrative [facility] - 02/25/2023 12:56 PM EDT ----- ------- Name: StewartLilia ?Age/Sex: 48/F ? : 1975 Unit#: [id number] ?? Attend Dr: Candido Deleon MD ?Re02/03/23 ?Status: DEP REF ? Location: HO.LNP ?Disch: ? ----- ------- SPEC : [id number] ? RECD: 02/04/23-819 ? STATUS: ??SOUT ? REQ NUM: [id number] ? RYAN: 02/03/23-1329 ? SUBM DR: Candido Deleon MD ? ENTERED: ??02/04/23 ?SP TYPE: Pap Smr ?OTHR DR: Phyllis Silva MD ? ORDERED: ??Pap Smear ? Interpretation ?? Satisfactory for evaluation. ?? Negative for intraepithelial lesion or malignancy. ?HPV mRNA E6/E7: ?NOT DETECTED ? This assay detects E6/E7 viral messenger RNA (mRNA) from 14 high-risk HPV types (16, 18, ?? 31, 33, 35, 39, 45, 51, 52, 56, 58, 59, 66, 68) ?? HPV testing performed by [facility] [place], [place]. ??See reference laboratory ?? pion of the EMR for entire report. ?Clinical Information LMP: Postmenopausal Previous PAP test: 08/20/20, Unknown findings Other history: Postmenopausal bleeding ? Material Received ?? ThinPrep-Cervical Copies To: ?? Phyllis Silva MD ?? [address] ?? [place] [address] ? Candido Deleon MD ?? [address] [place] [address] [address] ?? [place] [address] ?? [phone] ----- ------- Signed (signature on file) Chery R Botto, [place] ([facility]) 02/25/23 1256 ? ----- ------- ? END OF REPORT ? [facility] External Provider LAB CYT OLOGY ORDERABLES Final Result Performing Organization Address [facility]/State/ZIP Co de Phone Number [facility] [address] [place] [phone] * Colonoscopy (09/08/2022) Pathologist [facility] [place] Colonoscopy 1 Historical Provider HEALTH MAINTENANCE Edited Result - Final * HEPATITIS C AB W/REFL TO HCV RNA, QN, PCR (12/13/2020 1:18 PM EDT) Pathologist [facility] HEPATITIS C ANTIBODY NON-REACT MIQUEL NON-REACT MIQUEL [facility] INDEX 0.01 <1.00 [facility] Comment: ?? HCV antibody was non-reactive. There is no laboratory ?? evidence of HCV infection. ?? In most cases, no further action is required. However, if recent HCV exposure is suspected, a test for HCV RNA (test code 56207) is suggested. ?? For additional information please refer to http://education.[employer]/faq/ZDH11k2 (This link is being provided for informational/ educational purposes only.) ?? 12/13/2020 1:18 PM EDT Phyllis Silva MD HISTORICAL/NON ORDERABLE LABS Fi nal Result Performing Organization Address [facility]/ZIP Co de Phone Number [facility] [address] * HIV 1/2 ANTIGEN/ANTIBODY,FOURTH GENERATION W/RFL (12/13/2020 1:18 PM EDT) Pathologist [facility] HIV-1/2 ANTIGEN AND ANTIBODIES, 4TH GENERATION W/ REFLEX NON-REACT MIQUEL NON-REACT MIQUEL [facility] Comment: HIV-1 antigen and HIV-1/HIV-2 antibodies were not detected. There is no laboratory evidence of HIV infection. ?? PLEASE NOTE: This information has been disclosed to you from records whose confidentiality may be protected by state law. ??If your state requires such protection, then the state law prohibits you from making any further disclosure of the information without the specific written consent of the person to whom it pertains, or as otherwise permitted by law. A general authorization for the release of medical or other information is NOT sufficient for this purpose. ? For additional information please refer to http://Pllop.it.[employer]/faq/JRF108 (This link is being provided for informational/ educational purposes only.) ? The performance of this assay has not been clinically validated in patients less than 2 years old. ?? 12/13/2020 1:18 PM EDT Phyllis Silva MD LAB BLOOD ORDERABLES Final Resul t Performing Organization Address [facility] Co de Phone Number [facility] [address] [place] [address], * HPV mRNA E6/E7 (05/19/2016 1:45 PM EDT) Pathologist [facility] [place] HPV mRNA E6/E7 Not Detected NOT DETECTED [facility] Comment: This assay detects E6/E7 viral messenger RNA (mRNA) from 14 high-risk HPV types (16,18,31,33,35,39,45,51, 52,56,58,59,66,68). This test was performed using the APTIMA(R) TMA HPV Assay ([employer] For additional information, please refer to http://Pllop.it.[employer]/faq/YSP625n4 Test Performed by [facility], [facility], [address] [place] [address] Julián Adams M.D., Ph.D., Director of Laboratories , [facility] [id number] Please note: ??Effective 04/27/2016, HPV testing will be performed using [employer]'s APTIMA test which targets mRNA. Detecting mRNA instead of DNA, as in older methods, offers significant improvements in specificity. 05/19/2016 1:45 PM EDT us Phyllis Silva MD HISTORICAL/NON ORDERABLE LABS Fi nal Result Performing Organization Address City/State/[facility] Co de Phone Number [facility] [address] from Last 3 Months or Most Recently Relevant to Health Maintenance Insurance [place]IC[place] [address] [place] [id number] [facility] STANDARD * Guarantor: Lilia Stewart I Account Type Relation to Patient Date of Phone Billing Address Personal/Family Self [address] Care Teams General Assistant Relationship Specialty Start Date End Date Phyllis Silva MD [address] [place] [address] PCP - General Family Medicine 08/16/18 Valentín Moreno, PharmD [address] [place] [phone] Pharmacist Internal Medicine 05/25/23
--- OUTSIDE RECORDS SUMMARY | 2024-11-16 13:25 | XMS_ITS | Encounter Summary ---
Author Organization [employer] Address [address] [facility] [address] [place] [address] Care Team Providers Care Hip Hop Dancer Name Role Phone Phyllis Silva MD Primary Care Provider [phone] Valentín Moreno PharmD Unavailable [phone] Encounter Details Date Type Department Care Team (Late st Contact Info) Description 10/06/2022 Orders Only [facility] [address] [place] [address] Lani Silver LPN Social History Tobacco Use [...] Description 12/15/2024 1:00 PM EDT Medication Management [facility] MEDICINE [address] [place] [address] Valentín Moreno, PharmD [address] [place] [address] documented as of this encounter Visit Diagnoses Not on filedocumented in this encounter Care Teams Hip Hop Dancer Relationship Specialty Start Date End Date Phyllis Silva MD [address] [place], [place] [phone] PCP - General Family Medicine 08/16/18 Valentín Moreno, JulioD [address] [place], [place] [phone] Pharmacist Internal Medicine 05/25/23 documented as of this encounter
== END 2024-11-16 14:13 | disposition home or self-care (01) ==
LOC: HO.HWS 12:11
PROVIDERS: PCP Family Medicine; Visit Provider Obstetrics & Gynecology
DX: L90.0 Lichen sclerosus et atrophicus (principal)
CPT/HCPCS: 99213

== ENCOUNTER 2024-11-17 09:54 | Outpatient (REF) | payer MEDICARE, MEDICAID, SELFPAY ==
--- OUTSIDE RECORDS SUMMARY | 2024-11-17 11:12 | XMS_ITS | Clinical Summary ---
Author Organization [employer] Address [address] [facility] [address] [place] [address] Care Team Providers Care Commercial Credit Specialist Name Role Phone Phyllis Silva MD Primary Care Provider [phone] Valentín Moreno PharmD Unavailable [phone] Allergies No known active allergies Medications * [...] complication, without long-term current use of insulin ([facility]) Check blood glucose three times daily 100 [...] complication, without long-term current use of insulin ([facility]) Inject 1.5 mg under the skin every [...] supply - recommended to discuss with her MINERAL ECONOMIST for stress incontinence evaluation and treatment Chronic idiopathic constipation 02/22/2023 Assessment & Plan (02/22/2023 2:12 PM EDT): Last seen by GI on 09/22/22. -continue Fiber-rich diet -Colonoscopy on 09/08/22, Dx Tubular Adenoma. Recommended repeat in 3yrs. -Continue Senna Xanthelasma of eyelid, bilateral 02/22/2023 Assessment & Plan (09/05/2023 11:49 AM EST): -seen by optmetrist and patient education was provided -seen by supervisor tubing and was informed that treatment is considered [...] (09/05/2023 12:09 PM EST): - Followed by MINERAL ECONOMIST - PAP in January 2023, NILM with [...] -Comprehensive / dilated eye exam: 03/02/22 at [facility], no diabetic retinopathy -Comprehensive foot exam: 08/04/21 -Last microalbumin test: 02/24/23 UACR 9.2 -Last lipid profile: 08/25/23 -Last dental exam: -follow up in 3 mo or sooner prn Assessment & Plan (11/30/2023 5:01 PM EDT): diagnosed in July 2020 -A1C 5.7% on 11/30/23. -continue metformin ER 1g twice daily, lik -continue working on lifestyle modifications -Comprehensive / dilated eye exam: 03/02/22 at [facility], no diabetic retinopathy -Comprehensive foot exam: 08/04/21 -Last microalbumin test: 02/24/23 UACR 9.2 -Last lipid profile: 08/25/23 -Last dental exam: -follow up in 3 mo or sooner prn Assessment & Plan (09/05/2023 11:56 AM EST): diagnosed in July 2020 -A1C 6.7% on 06/30/23. -continue metformin ER 1g twice daily, lik -continue working on lifestyle modifications -Comprehensive / dilated eye exam: 03/02/22 at [facility], no diabetic retinopathy -Comprehensive foot exam: [...] -Comprehensive / dilated eye exam: 03/02/22 at [facility], no diabetic retinopathy -Comprehensive foot exam: [...] today -pt agreed to be referred to [facility] Resolved Problems Problem Noted Date Diagnosed Date Resolved Date Chronic cough 08/31/2023 02/21/2024 Assessment & Plan (11/28/2023 6:07 PM EDT): - since Apr 2023 - DDx allergic rhinitis; asthma; post-COVID; ILD - Following with [facility] pulmonology, last seen by Dr. Parmar in [...] rhinitis; asthma; post-COVID; ILD - Following with [facility] pulmonology; upcoming appointment for PFT and RAST - Discontinued lisinopril, but cough did not improve - continue current treatment per community health director Lichen sclerosus of vulva 02/22/2023 Encounters Date Type Department Care Team Description 11/16/2024 Telephone [facility] [address] [place] [address] Phyllis Silva MD Appointment Request 11/02/2024 Orders Only GENERIC EXTERNAL DATA DEPARTMENT Provider, Generic External Data 10/27/2024 Population Health Risk Score [facility] Department [address] [phone] Provider, Population Health Generic 09/18/2024 Refill [facility] [address] [place] [address] Chata Thomas ANP 08/22/2024 Refill [facility] [address] [place] [address] Phyllis Silva MD Type 2 diabetes mellitus without complication, without long-term current use of insulin ([facility]); Hypertension, unspecified type from Last 3 Months [...] Description 12/15/2024 1:00 PM EDT Medication Management [facility] [address] [place] [address] Valentín Moreno, PharmD [address] [place] [address] Health Maintenance Due Date Last Done Comments [...] complication, without long-term current use of insulin ([facility]) BI MAMMOGRAM SCREENING TOMOSYNTHESIS BILATERAL Routine 03/01/2024 12:55 PM EDT LIPID PANEL, STANDARD Routine 08/25/2023 1:00 PM EST ALBUMIN, RANDOM URINE W/CREATININE Routine 02/24/2023 9:54 AM EDT PAP SMEAR Routine 02/03/2023 1:29 PM EDT HM COLONOSCOPY Routine 09/08/2022 AdrianMIAH HISTORICAL HEPATITIS C AB W/REFL TO HCV [...] 2:39 PM EDT 11/03/2024 8:19 AM EDT [facility] - 11/07/2024 4:56 PM EDT ----- ------- Name: Lilia Stewart ?Age/Sex: 49/F ? : 1975 Unit#: [id number] ?? Attend Dr: Candido Deleon MD ?Re11/02/24 ?Status: DEP REF ? Location: HO.LNP ?Disch: ? ----- ------- SPEC : [id number] ? RECD: 11/03/24 ? STATUS: ??SOUT ? REQ NUM: [id number] ? RYAN: 11/02/24 ? SUBM DR: Candido [...] microscopic examination, 1 piece in cassette A. ??([facility]) Special studies ordered and performed: PAS stain Copies To: ?? Phyllis Silva MD ?? [facility] ?? [address] ?? [place] [address] ?? [phone] ?? Candido Deleon MD ?? [facility] Women's Services ?? [address] ?? [place] ?? [phone] ? CONTINUED ON NEXT PAGE ----- ------- Name: Lilia Stewart ?Age/Sex: 49/F ? : 1975 Unit#: [id number] ?? Attend Dr: Candido Deleon MD ?Re11/02/24 ?Status: DEP REF ? Location: HO.LNP ?Disch: ? ----- ------- SPEC : [id number] ? RECD: 11/03/24 ? STATUS: ??SOUT ? REQ NUM: [id number] ? RYAN: 11/02/24-9 ? SUBM DR: Candido Deleon MD ? ENTERED: ??11/03/24 ?SP TYPE: Surgical ? OTHR : Phyllis Silva MD ? ORDERED: ??EUNICE Stain/3, Gross Micro L4, Specials Gr. 1, PASF ? ----- ------- Signed (signature on file) Zaid Montes MD 11/07/24 6212 ? ----- ------- ? END OF REPORT ? us Generic External Data Provider LAB BLOOD ORDERAB LES Final Result [facility] [address] [place] [address] [phone] * (ABNORMAL) POCT HGB A1C (08/14/2024 1:32 PM EST) Hemoglobin A1C 6.4(A) 4.0 - 6.0 % QC Media Lot # [id number] Lot# Expiration Date , Blood 08/14/2024 1:32 PM EST us Phyllis Silva MD POINT OF CARE TEST ENTER/EDIT OR DERABLES Final Result * BI Mammogram Screening Tomosynthesis Bilateral (03/01/2024 12:55 PM EDT) Anatomical Region Laterality Modality Breast Bilateral Mammography 03/01/2024 12:5 5 PM EDT Narrative 03/22/2024 2:09 PM EDT ? [facility] [place] ? [address] ?[place] [address] ? Mammography Report ? Signed ? Patient: Stewart,Lilia ?MR#: [id number] ?? 9 ? : 1975 ?Acct:[id number] ? Age/Sex: 49 / F ?ADM Date: 07/17/24 ? Loc: HO.MAMMO ? Attending Dr: Phyllis Silva MD ? Ordering Physician: Phyllis Silva MD ?Results: 1Negative ? Date of Service: 03/01/24 ?Follow Up: 1 Year From Orig ?? inal Mammogram ? Procedure(s): MM tomosynthesis screening BI ?? Accession Number(s): [id number] ? cc: Phyllis Silva MD ? EXAMINATION: [...] in OV> ? 03/22/24 1405 ? DD/ ? TD/TT: ? Clinic Nurse: ? Procedure Note Martina Ron - 03/22/2024 [facility] [address] [place], [place] [address] Mammography Report Signed Patient: Marvin Stewart#: [id number] 9 : 1975Acct:[id number] Age/Sex: 49 / FADM Date: 03/01/24 Loc: BESSY.MAMMO Attending Dr: Phyllis Silva MD Ordering Physician: Phyllis Silva MDResults: 1Negative Date of Service: 03/01/24Follow Up: 1 Year From Orig inal Mammogram Procedure(s): MM tomosynthesis screening BI Accession Number(s): [id number] cc: Phyllis Silva MD EXAMINATION: MM SCREENING [...] in OV> 03/22/24 1405 DD/ 1255 TD/TT: Clinic Nurse: us Phyllis Silva MD IMG BI PROCEDURES Final Result * Lipid Panel, Standard (08/25/2023 1:00 PM EST) Triglycerides 102 <150 mg/dL [facility] Comment:Desirable Triglyceri de: less than 150 mg/dLBorderline High Triglyceride 150-199 mg/dLHigh Triglyceride: 200-499 mg/dLVery High Triglyceride: greater than or equal to 5OO mg/dL Cholesterol 165 <200 mg/dL [facility] Comment:Desirable Cholestero l: less than 200 mg/dLBorderline High Cholesterol: 200-239 mg/dLHigh Cholesterol: greater than 239 mg/dL LDL Cholesterol Calculated 95 <100 mg/dL [facility] Comment:Desirable LDL: less than 100 mg/dLNear Optimal/Above Optimal LDL: 110- 129 mg/dLBorderline High LDL: 130-159 mg/dLHigh LDL: 160-189 mg/dLVery High LDL: greater than or equal to 190 mg/dL HDL Cholesterol 50 >40 mg/dL [facility] Comment:Desirable HDL: great er than 40 mg/dL Note: This HDL assay may give artificially low results in patients with liver disease. 08/25/2023 1:00 PM EST 08/25/2023 4:07 PM EST Phyllis Silva MD LAB BLOOD ORDERABLES Final Resul t Performing Organization Address City/[facility] Co de Phone Number [facility] [address] [place] [phone] * Albumin, Random Urine W/Creatinine (02/24/2023 9:54 AM EDT) Creatinine, Urine 280.11 mg/dL [facility] Microalbumin Urine 26.0 mg/L [facility] Microalbum Creatinine Ratio Ur 9.2 ug/mg cr [facility] Comment:Albumin/Creatinine R atio Reference Ranges: Normal: < 30 ug/mg creatinine Microalbuminuria: 30 - 300 ug/mg creatinineClinical Albuminuria: > 300 ug/mg creatinine 02/24/2023 9:54 AM EDT 02/24/2023 11:12 AM EDT us [facility] External Provider LAB URI NE ORDERABLES Final Result Performing Organization Address [facility]/ZIP Co de Phone Number [facility] [address] [place] [phone] * Pap Smear (02/03/2023 1:29 PM EDT) 02/03/2023 1:29 PM EDT 02/04/2023 8:20 AM EDT [facility] - 02/25/2023 12:56 PM EDT ----- ------- Name: Lilia Stewart ?Age/Sex: 48/F ? : 1975 Unit#: [id number] ?? Attend Dr: Candido Deleon MD ?Re02/03/23 ?Status: DEP REF ? Location: HO.LNP ?Disch: ? ----- ------- SPEC : [id number] ? RECD: 02/04/23-819 ? STATUS: ??SOUT ? REQ NUM: [id number] ? RYAN: 02/03/23-9 ? SUBM DR: Candido Deleon MD ? ENTERED: ??02/04/23-913 ?SP TYPE: Pap Smr ?OTHR DR: Phyllis [...] 66, 68) ?? HPV testing performed by [employer], [place], [place]. ??See reference laboratory ?? pion of the EMR for entire report. ?Clinical Information LMP: Postmenopausal Previous PAP test: 08/20/20, Unknown findings Other history: Postmenopausal bleeding ? Material Received ?? ThinPrep-Cervical Copies To: ?? Phyllis Silva MD ?? [address] ?? [place] [address] ? Candido Deleon MD ?? [address] [place] [address] [place] [address] ?? [place] [address] ?? [phone] ----- ------- Signed (signature on file) ASHWIN Pierre ([facility]) 02/25/23 1256 ? ----- ------- ? END OF REPORT ? [facility] External Provider LAB [facility] ORDERABLES Final Result [facility] [address] [place] [phone] * Colonoscopy (09/08/2022) [facility] Colonoscopy 1 Historical Provider HEALTH MAINTENANCE Edited Result - Final * HEPATITIS C AB W/REFL TO HCV RNA, QN, PCR (12/13/2020 1:18 PM EDT) [facility] HEPATITIS C ANTIBODY NON-REACT MIUQEL NON-REACT MIQUEL [facility] INDEX 0.01 <1.00 [facility] Comment: ?? HCV antibody was non-reactive. There is no laboratory ?? evidence of HCV infection. ?? In most cases, no further action is required. However, if recent HCV exposure is suspected, a test for HCV RNA (test code 29776) is suggested. ?? For additional information please refer to http://EZDOCTOR.Flipora/faq/EFL75o0 (This link is being provided for informational/ educational purposes only.) ?? 12/13/2020 1:18 PM EDT Phyllis Silva MD HISTORICAL/NON ORDERABLE LABS Fi nal Result Performing Organization Address [facility] de Phone Number [facility] [address] * HIV 1/2 ANTIGEN/ANTIBODY,FOURTH GENERATION W/RFL (12/13/2020 1:18 PM EDT) HIV-1/2 ANTIGEN AND ANTIBODIES, 4TH GENERATION W/ REFLEX NON-REACT MIQUEL NON-REACT MIQUEL [facility] Comment: HIV-1 antigen and HIV-1/HIV-2 [...] ? For additional information please refer to http://education.[employer].GT Nexus/faq/MPO072 (This link is being provided for informational/ educational purposes only.) ? The performance of this assay has not been clinically validated in patients less than 2 years old. ?? 12/13/2020 1:18 PM EDT Phyllis Silva MD LAB BLOOD ORDERABLES Final Resul t Performing Organization Address [facility] Phone Number [facility] [address] [place] [address], * HPV mRNA E6/E7 (05/19/2016 1:45 PM EDT) HPV mRNA E6/E7 Not Detected NOT DETECTED [facility] Comment: This assay detects E6/E7 viral messenger RNA (mRNA) from 14 high-risk HPV types (16,18,31,33,35,39,45,51, 52,56,58,59,66,68). This test was performed using the APTIMA(R) TMA HPV Assay ([employer] For additional information, please refer to http://education.[employer].GT Nexus/faq/YCK095i2 Test Performed by Natty Tyson, [employer] [facility], [address] [place] [address] Julián Adams M.D., Ph.D., Director of Laboratories , [place] [id number] Please note: ??Effective 04/27/2016, HPV testing will be performed using [employer]'s APTIMA test which targets mRNA. Detecting mRNA instead of DNA, as in older methods, offers significant improvements in specificity. 05/19/2016 1:45 PM EDT us Phyllis Silva MD HISTORICAL/NON ORDERABLE LABS Fi nal Result [facility] [address] from Last 3 Months or Most Recently Relevant to Health Maintenance Insurance MEDICARE [facility] STANDARD Care Teams Commercial Credit Specialist Relationship Specialty Start Date End Date Phyllis Silva MD [address] [place] [phone] PCP - General Family Medicine 08/16/18 Valentín Moreno, PharmD [address] [place] [phone] Pharmacist Internal Medicine 05/25/23
--- OUTSIDE RECORDS SUMMARY | 2024-11-17 11:12 | XMS_ITS | Encounter Summary ---
Author Organization [employer] Address [address] [facility] [address] [place] [address] Care Team Providers Care Spinning Operator Name Role Phone Phyllis Silva MD Primary Care Provider [phone] Valentín Moreno PharmD Unavailable [phone] Encounter Details Date Type Department Care Team (Late st Contact Info) Description 08/21/2022 Orders Only [facility] [address] [place] [address] Lacie Miles, RN [address] [place] [address] Social History Tobacco Use Types Packs/Day Years [...] Description 12/15/2024 1:00 PM EDT Medication Management [facility] [address] [place] [address] Valentín Moreno, PharmD [address] [place] [address] documented as of this encounter Procedures Procedure [...] 11:04 AM EST) Hemoglobin A1c 8.3 % [facility] Comment:Hemoglobin A1C Refer ence Range Adults: 4.8 - 6.0 % Non diabetic: < 6.0 % Goal: < 7.0 %Additional Action Suggested: > 8.0 %Note: Hemoglobin A1c results are invalid for patients with abnormal amounts of HbF. Blood transfusions may impact the HbA1c concentration in the patient sample. Estimated Average Glucose 192 mg/dL [facility] Comment:eAG = Estimated ave rage glucose which is %A1C expressed asaverage glucose, using the formula of the K1T-ByfxnhjKyboxjf Glucose study (ADAG), Diabetes Care, Vol.31,#8,Mar. 2007 09/22/2022 11:0 4 AM EST 09/22/2022 11:04 AM EST us [facility] External Provider LAB BLO OD ORDERABLES Final Result [facility] [address] [place] [phone] * TSH W/Reflex to FT4 (09/22/2022 11:04 AM EST) TSH reflex Free T4 2.16 0.32 - 4.0 uIU/mL [facility] 09/22/2022 11:0 4 AM EST 09/22/2022 11:04 AM EST [facility] External Provider LAB BLO OD ORDERABLES Final Result Performing Organization Address City/[facility]/ZIP Co de Phone Number [facility] [address] [place] [phone] * Lipid Panel, Standard (09/22/2022 11:04 AM EST) Triglycerides 167 mg/dL [facility] Comment:Desirable Triglyceri de: less than 150 mg/dLBorderline High Triglyceride 150-199 mg/dLHigh Triglyceride: 200-499 mg/dLVery High Triglyceride: greater than or equal to 5OO mg/dL Cholesterol 229 mg/dL [facility] Comment:Desirable Cholestero l: less than 200 mg/dLBorderline High Cholesterol: 200-239 mg/dLHigh Cholesterol: greater than 239 mg/dL LDL Cholesterol Calculated 152 mg/dl [facility] Comment:Desirable LDL: less than 100 mg/dLNear Optimal/Above Optimal LDL: 110- 129 mg/dLBorderline High LDL: 130-159 mg/dLHigh LDL: 160-189 mg/dLVery High LDL: greater than or equal to 190 mg/dL HDL Cholesterol 44 mg/dL [facility] Comment:Desirable HDL: great er than 40 mg/dL Note: This HDL assay may give artificially low results in patients with liver disease. 09/22/2022 11:0 4 AM EST 09/22/2022 11:04 AM EST [facility] External Provider LAB BLO OD ORDERABLES Final Result Performing Organization Address [facility]/ZIP Co de Phone Number [facility] [address] [place] [phone] * (ABNORMAL) Comprehensive Metabolic Panel (09/22/2022 11:04 AM EST) Pathologist [facility] Sodium 139 135 - 145 mmol/L [facility] Potassium 4.8 3.3 - 5.1 mmol/L [facility] Chloride 104 96 - 108 mmol/L [facility] Carbon Dioxide 23 22 - 29 mmol/L [facility] Anion Gap 17 12 - 20 [facility] Urea Nitrogen (BUN) 10 9 - 16 mg/dL [facility] Creatinine, Serum 0.76 0.5 - 1.4 mg/dL [facility] Estimated Glomerular Filt Rate >60 [facility] Comment:NOTE: For -Am erican individuals, multiply the result by 1.210.Chronic Kidney Disease: Estimated GFR < 60 mL/min/1.37l4Ahxtxv Kidney Disease: Estimated GFR < 15 mL/min/1.73m2 Glucose 248(H) 60 - 115 mg/dL [facility] Calcium 9.7 8.4 - 10.2 mg/dL [facility] Bilirubin, Total 0.5 0.0 - 1.0 mg/dL [facility] Aspartate Amino Transferase 28 5 - 31 U/L [facility] Alanine Aminotransferase 52(H) 0 - 31 U/L [facility] Total Protein 7.2 6.5 - 8.0 g/dL [facility] Albumin Level 4.6 3.5 - 5.0 g/dL [facility] Alkaline Phosphatase 135(H) 39 - 117 U/L [facility] 09/22/2022 11:0 4 AM EST 09/22/2022 11:04 AM EST us [facility] External Provider LAB BLO OD ORDERABLES Final Result [facility] [address] [place] [phone] * CBC auto differential (09/22/2022 11:04 AM EST) White Blood Count 6.2 4.8 - 10.8 X10*3/uL [facility] Red Blood Count 4.90 4.20 - 5.50 X10*6/uL [facility] Hemoglobin 14.2 12.0 - 16.0 g/dl [facility] Hematocrit 41.8 37.0 - 47.0 % [facility] Mean Corpuscular Volume 85.3 80.0 - 98.0 fL [facility] Mean Corpuscular Hemoglobin 29.0 27.0 - 33.0 pg [facility] Mean Corpuscular HGB Conc 34.0 31.0 - 35.0 g/dl [facility] Red Cell Distribution Width 12.0 11.0 - 16.0 % [facility] Platelet Count 231 160 - 400 X10*3/uL [facility] Mean Platelet Volume 11.9 9.4 - 12.3 fL [facility] Neutrophils Percent Auto 53.8 45 - 73 % [facility] Imm Gran Pct Auto 0.3 0.0 - 0.4 % [facility] Lymphocytes Percent Auto 35.2 20 - 40 % [facility] Monocytes Percent Auto 6.6 2 - 11 % [facility] Eosinophils Percent Auto 3.5 0 - 4 % [facility] Basophils Percent Auto 0.6 0 - 2 % [facility] NRBC Pct Auto 0.0 0.0 - 0.2 /100WBC [facility] Neutrophils Absolute Auto 3.3 2.0 - 8.3 x10*3/uL [facility] Imm Gran Abs Auto 0.02 0.00 - 0.03 X10*3/uL [facility] Lymphocytes Absolute Auto 2.2 1.2 - 4.9 X10*3/uL [facility] Monocytes Absolute Auto 0.4 0.1 - 1.2 X10*3/uL [facility] Eosinophils Absolute Auto 0.2 0.0 - 0.4 X10*3/uL [facility] Basophils Absolute Auto 0.0 0.0 - 0.2 X10*3/uL [facility] NRBC Abs Auto 0.000 0.0 - 0.012 X10*3/uL [facility] 09/22/2022 11:0 4 AM EST 09/22/2022 11:04 AM EST us [facility] External Provider LAB BLO OD ORDERABLES Final Result [facility] [address] [place] [phone] * Hematoxylin and Eosin Stain (09/08/2022 10:46 AM EST) 09/08/2022 10:4 6 AM EST 09/08/2022 12:35 PM EST Narrative [facility] - 09/09/2022 12:25 PM EST ----- ------- Name: Lilia Stewart ?Age/Sex: 47/F ? : 1975 Unit#: [id number] ?? Attend Dr: Reuben Walls MD ?Re09/08/22 ?Status: DEP SDC ? Location: HO.SSS ?Disch: ? ----- ------- SPEC : [id number] ?RECD: 09/08/22-5 ? STATUS: ??SOUT ? REQ NUM: [id number] ? RYAN: 09/08/22-1046 ? SUBM DR: Reuben [...] Stewart ?Age/Sex: 47/F ? : 1975 Unit#: [id number] ?? Attend Dr: Reuben Walls MD ?Re09/08/22 ?Status: DEP [facility] ? Location: HO.SSS ?Disch: ? ----- ------- SPEC : [id number] ?RECD: 09/08/22-1235 ? STATUS: ??SOUT ? REQ NUM: [id number] ? RYAN: 09/08/22-1046 ? SUBM DR: Reuben Walls MD ? ENTERED: ??09/08/22-1424 ?SP TYPE: Surgical ? OTHR DR: Phyllis Silva MD ? ORDERED: ??HE Stain/5, Gross Micro L4/2 ? COMMENTS: Part B: ??One of the tissue fragments is tiny and may be ?difficult to identify during processing and may fail to ?survive processing. Copies To: ?? Reuben Walls MD ?? [address] [facility] ?? [place] [address] ?? [phone] ?? Phyllis Silva MD ?? [address] ?? [place] [address] ?? ----- ------- Signed (signature on file) Mona Avila 09/09/22 1225 ? ----- ------- ? END OF REPORT ? [facility] External Provider LAB BLO OD ORDERABLES Final Result Performing Organization Address [facility] de Phone Number [facility] [address] [place] [address] [phone] * (ABNORMAL) GLUCOSE, WHOLE BLOOD (09/08/2022 9:40 AM EST) Glucose, Whole Blood 198(H) 60 - 115 mg/dL [facility] Comment:METER #: [id number] 09/08/2022 9:40 AM EST 09/08/2022 9:43 AM EST [facility] External Provider LAB BLO OD ORDERABLES Final Result Performing Organization Address [facility] de Phone Number [facility] [address] [place] [address] [phone] documented in this encounter Visit Diagnoses Not on filedocumented in this encounter Care Teams Spinning Operator Relationship Specialty Start Date End Date Phyllis Silva MD [address] [place], [place] [phone] PCP - General Family Medicine 08/16/18 Valentín Moreno, PharmD [address] [place] [address] Pharmacist Internal Medicine 05/25/23 documented as of this encounter
--- OUTSIDE RECORDS SUMMARY | 2024-11-17 11:13 | XMS_ITS | Encounter Summary ---
Author Organization [employer] Address 75 [facility] 7 [place] [address] Care Team Providers Care Front End Loader Driver Name Role Phone Phyllis Silva MD Primary Care Provider [phone] Valentín Moreno PharmD Unavailable [phone] Reason for Referral * Consultation (Routine) - Authorized Specialty Diagnoses / Procedures Referred By Contac t Referred To Contact Pharmacy Diagnoses Hypertension, unspecified type Type 2 diabetes mellitus without complication, without long-term current use of insulin ([facility]) Phyllis Silva MD [address] [place] [address] Phone: tel: fax: Referral ID Status Reason Start Date Expiration Date Visits Requested Visits Authorized [id number] Authorized Consult and Treat 06/27/2024 06/27/2025 6 6 Encounter Details Date Type Department Care Team (Late st Contact Info) Description 06/27/2024 Orders Only [facility] [address] [place] [address] Phyllis Silva MD [address] [place] [address] Hypertension, unspecified type (Primary Dx); Type 2 diabetes mellitus without complication, without long-term current use of insulin ([facility]) Social History Tobacco Use Types Packs/Day Years [...] Description 12/15/2024 1:00 PM EDT Medication Management [facility] [address] [place] [address] Valentín Moreno, PharmD [address] [place], [place] [phone] Scheduled Referrals Name Type Priority Associated Diagnoses Orde r Schedule Referral to Pharmacy CDTM Outpatient Referral Routine Hypertension, unspecified type Type 2 diabetes mellitus without complication, without long-term current use of insulin ([facility]) Ordered: 06/27/2024 documented as of this encounter [...] complication, without long-term current use of insulin ([facility]) documented in this encounter Additional Health Concerns Assessment Noted Time PHQ-9 Depression Total Score: 4 02/23/20 23 1:20 PM EDT documented as of this encounter Care Teams Front End Loader Driver Relationship Specialty Start Date End Date Phyllis Silva MD [address] [place] [address] PCP - General Family Medicine 08/16/18 Valentín Moreno PharmD [address] [place] [address] Pharmacist Internal Medicine 05/25/23 documented as of this encounter
--- OUTSIDE RECORDS SUMMARY | 2024-11-17 11:13 | XMS_ITS | Encounter Summary ---
Author Organization [employer] Address [address] [facility] 7 [place] [address] Care Team Providers Care Copy Editor Name Role Phone Phyllis Silva MD Primary Care Provider [phone] Valentín Moreno PharmD Unavailable [phone] Reason for Referral * Consultation (Routine) - Authorized Specialty Diagnoses / Procedures Referred By Contac t Referred To Contact Pharmacy Diagnoses Type 2 diabetes mellitus without complication, without long-term current use of insulin (CMS/HCC) Hypertension, unspecified type Phyllis Silva MD [address] [place] [address] Phone: tel: fax: Referral ID Status Reason Start Date Expiration Date Visits Requested Visits Authorized [id number] Authorized Consult and Treat 05/15/2024 05/15/2025 6 6 Encounter Details Date Type Department Care Team (Late st Contact Info) Description 05/15/2024 Orders Only [facility] [address] [place] [phone] Phyllis Silva MD [address] [place] [phone] Type 2 diabetes mellitus without complication, without [...] Description 12/15/2024 1:00 PM EDT Medication Management [facility] [address] [place] [address] Valentín Moreno, PharmD [address] [place] [address] Scheduled Referrals Name Type Priority Associated Diagnoses Orde r Schedule Referral to Pharmacy CDTM Outpatient Referral Routine Type 2 diabetes mellitus without complication, without long-term current use of insulin ([facility]) Hypertension, unspecified type Ordered: 05/15/2024 [...] complication, without long-term current use of insulin ([facility])- Primary Hypertension, unspecified type documented in this encounter Additional Health Concerns Assessment Noted Time PHQ-9 Depression Total Score: 4 02/23/20 23 1:20 PM EDT documented as of this encounter Care Teams Copy Editor Relationship Specialty Start Date End Date Phyllis Silva MD [address] [place] [address] PCP - General Family Medicine 08/16/18 Valentín Moreno PharmD [address] [place] [address] Pharmacist Internal Medicine 05/25/23 documented as of this encounter
--- OUTSIDE RECORDS SUMMARY | 2024-11-17 11:13 | XMS_ITS | Encounter Summary ---
Author Organization [employer] Address [address] [facility] [address]t [place] [address] Care Team Providers Care Comic Book Designer Name Role Phone Phyllis Silva MD Primary Care Provider [phone] Valentín Moreno PharmD Unavailable [phone] Reason for Visit * Reason Onset Date Comments Appointment Request 11/16/2024 Encounter Details Date Type Department Care Team (Late st Contact Info) Description 11/16/2024 Telephone [facility] [address] [place], [place] [phone] Phyllis Silva MD [address] [place] [address] Appointment Request Social History Tobacco Use Types Packs/Day Years [...] the past 12 months, has t he [employer], gas, oil or water [employer] threatened to shut off services in your home? No 05/31/2023 Depression Answer Date Recorded Patient Health Questionnaire-2 Score 1 02/22/2023 Comments Unknown Sex and Gender Information Value Date Recorded Sex Assigned at Female 06/15/2022 10:14 AM EDT Legal Sex Female 10:14 AM EDT Gender Identity Female 06/15/2022 10:14 AM EDT Sexual Orientation Straight 06/15/2022 10 :14 AM EDT documented as of this encounter Miscellaneous Notes * Telephone Encounter - Alyssa Clarke - 11/16/2024 1:33 PM EDT Tc from pt requesting a callback pt requesting appointment for physical soonest availability. Please return call [phone] documented in this encounter Plan of Treatment Upcoming Encounters Date Type Department Care Team (Late st Contact Info) Description 12/15/2024 1:00 PM EDT Medication Management [facility] [address] [place] [address] Valentín Moreno PharmD [address] [place] [address] documented as of this encounter Goals Goal Patient Goal Type Associated Problems Recent Progress Patient-Stated? Author Blood Pressure < 140/90 Blood Pressure 118/84(2023 1:34 PM EST) No Valentín Moreno, PharmAmber Hemoglobin A1c < 7 Result Component 6.4( 1:32 PM EST) No Valentín Moreno, PharmD documented as of this encounter Visit Diagnoses Not on filedocumented in this encounter Additional Health Concerns Assessment Noted Time PHQ-9 Depression Total Score: 4 02/23/20 23 1:20 PM EDT documented as of this encounter Care Teams Comic Book Designer Relationship Specialty Start Date End Date Phyllis Silva MD [address] [place] [address] PCP - General Family Medicine 08/16/18 Valentín Moreno, PharmD [address] [place] [address] Pharmacist Internal Medicine 05/25/23 documented as of this encounter
--- OUTSIDE RECORDS SUMMARY | 2024-11-17 11:13 | XMS_ITS | Encounter Summary ---
Author Organization [employer] Address 75 [facility] 7t [place] [address] Care Team Providers Care Dental Scheduler Name Role Phone Phyllis Silva MD Primary Care Provider [phone] Valentín Moreno PharmD Unavailable [phone] Encounter Details Date Type Department Care Team (Late st Contact Info) Description 10/06/2022 Orders Only [facility] [address] [place] [address] Lani Silver LPN Social History Tobacco Use [...] Description 12/15/2024 1:00 PM EDT Medication Management [facility] [address] [place] [address] Valentín Moreno, PharmD [address] [place] [address] documented as of this encounter Visit Diagnoses Not on filedocumented in this encounter Care Teams Dental Scheduler Relationship Specialty Start Date End Date Phyllis Silva MD [address] [place], [place] [phone] PCP - General Family Medicine 08/16/18 Valentín Moreno, JulioD [address] [place], [place] [phone] Pharmacist Internal Medicine 05/25/23 documented as of this encounter
--- OUTSIDE RECORDS SUMMARY | 2024-11-17 11:13 | XMS_ITS | Encounter Summary ---
Author Organization [employer] Address 75 [facility] 7t [place] [address] Care Team Providers Care Special Education Bus Driver Name Role Phone Phyllis Silva MD Primary Care Provider [phone] Valentín Moreno PharmD Unavailable [phone] Encounter Details Date Type Department Care Team (Late st Contact Info) Description 12/16/[address] [facility] [address] [place] [address] Lani Silver LPN Social History Tobacco Use [...] Description 12/15/2024 1:00 PM EDT Medication Management [facility] [address] [place] [address] Valentín Moreno, PharmD [address] [place] [address] documented as of this encounter Visit Diagnoses Not on filedocumented in this encounter Care Teams Special Education Bus Driver Relationship Specialty Start Date End Date Phyllis Silva MD [address] [place], [place] [phone] PCP - General Family Medicine 08/16/18 Valentín Moreno, JulioD [address] [place], [place] [phone] Pharmacist Internal Medicine 05/25/23 documented as of this encounter
--- OUTSIDE RECORDS SUMMARY | 2024-11-17 11:13 | XMS_ITS | Encounter Summary ---
Author Organization [employer] Address 75 [facility] 7t [place] [address] Care Team Providers Care Bank Examiner Name Role Phone Phyllis Silva MD Primary Care Provider [phone] Valentín Moreno PharmD Unavailable [phone] Encounter Details Date Type Department Care Team (Late st Contact Info) Description 12/30/2023 Abstract [facility] [address] [place] [address] Phyllis Silva MD [address] [place] [address] Social History Tobacco Use Types Packs/Day Years [...] Description 12/15/2024 1:00 PM EDT Medication Management [facility] [address] [place] [address] Valentín Moreno PharmD [address] [place] [address] documented as of this encounter Goals Goal [...] documented as of this encounter Care Teams Bank Examiner Relationship Specialty Start Date End Date Phyllis Silva MD [address] [place] [address] PCP - General Family Medicine 08/16/18 Valentín Moreno, JulioD [address] [place] [address] Pharmacist Internal Medicine 05/25/23 documented as of this encounter
[2024-11-17 11:57] LABS: Creatinine Urine 266.67 mg/dL; Microalbum/Creatinine Ratio Ur 11.2 ug/mg cr (<30)
[2024-11-17 13:11] LABS: Alanine Aminotransferase 23 U/L (0-31); Albumin Level 4.6 g/dL (3.5-5.0); Alkaline Phosphatase 125 U/L (39-117); Anion Gap 12 (12-20); Aspartate Amino Transferase 20 U/L (5-31); Bilirubin Direct 0.2 mg/dL (0.0-0.5); Bilirubin Total 0.4 mg/dL (0.0-1.0); Blood Urea Nitrogen 17 mg/dL (9-16); Calcium 9.6 mg/dL (8.4-10.2); Carbon Dioxide 27 mmol/L (22-29); Chloride 108 mmol/L (96-108); Cholesterol 144 mg/dL (<200); Estimated Glomerular Filt Rate > 60; Glucose Random 127 mg/dL (60-115); HDL Cholesterol 46 mg/dL (>40); LDL Cholesterol Calculated 74 mg/dL (<100); Potassium 4.3 mmol/L (3.3-5.1); Sodium 143 mmol/L (135-145); Total Protein 7.3 g/dL (6.5-8.0); Triglycerides 123 mg/dL (<150)
== END 2024-11-17 09:55 | disposition home or self-care (01) ==
LOC: HO.HHCL 09:54
PROVIDERS: Visit Provider Family Medicine
DX: E11.9 Type 2 diabetes mellitus without complications (principal)
CPT/HCPCS: 36415; 80048; 80061; 80076; 82043; 82570

== ENCOUNTER 2025-01-02 11:46 | Outpatient (REF) | payer MEDICARE, MEDICAID, SELFPAY ==
--- NOTE | ~2025-01-02 | XR_ITS ---
EXAMINATION: XR FOOT 3 OR MORE VIEWS RIGHT HISTORY: right foot pain, at 4th MTP. lateral. No known injury. COMPARISON: There are no prior studies available for comparison. FINDINGS: Three views of the right foot are submitted. Osseous mineralization is normal. There is no fracture or dislocation. There is mild degenerative change of the 1st MTP joint. There are calcaneal spurs at the plantar aspect and at the insertion of the Achilles tendon. The soft tissues are unremarkable. XR/XR foot RT min 3V IMPRESSION: Mild degenerative change of the 1st MTP joint. Calcaneal spurs as described. No evidence of fracture. Electronically signed by: Uvaldo Richard MD 01/02/2025 12:29 PM EDT
--- OUTSIDE RECORDS SUMMARY | 2025-01-02 13:01 | XMS_ITS | Encounter Summary ---
Author Organization [employer] Address [address] [facility] [address] [place] [address] Care Team Providers Care Customer Account Executive Name Role Phone Phyllis Silva MD Primary Care Provider [phone] Valentín Moreno PharmD Unavailable [phone] Encounter Details Date Type Department Care Team (Latest Contact Info) Description 01/02/2025 Travel Social History Tobacco Use Types Packs/Day Years Used Date Smoking Tobacco: Never Passive Smoke Exposure: Never Smokeless Tobacco: Never Alcohol Answer Date Recorded Frequency of Alcohol Consumption Not on file 02/22/2024 Average Number of Drinks Not on file 024 Frequency of Binge Drinking Not on file 04/2024 Score 0 02/22/2024 Depression Answer Date Recorded Patient Health Questionnaire-9 Score 20 01/02/2025 Patient Health Questionnaire-9 Score 20 01/02/2025 Last PHQ-9: Questionnaire Data Not on file 0 01/02/2025 Housing Stability Answer Date Recorded What is your housing situation today? I have david khan 01/02/[address] you li ve. Do you have problems with any of the following? None of the above 01/02/2025 Food Insecurity Answer Date Recorded Within the past 12 months, y ou worried that your food would run out before you got money to buy more: Never True 01/02/2025 Within the past 12 months,th e food you bought just didn't last and you didn't have enough money to get more: Never True Transportation Answer Date Recorded In the past 12 months, has l ack of transportation kept you from medical appts, meetings, work or from getting things needed for daily living? No 01/02/2025 Utilities Answer Date Recorded In the past 12 months, has t he electric, gas, oil or water company threatened to shut off services in your home? No 01/02/2025 Depression Answer Date Recorded Patient Health Questionnaire-2 Score 6 01/02/2025 Internet Access Answer Date Recorded Internet Access Q1 Yes 01/02/2025 Internet Access Q2 Not on file 01/02/2025 Comments Unknown Sex and Gender Information Value Date Recorded Sex Assigned at Female 06/15/2022 10:14 AM EDT Legal Sex Female 10:14 AM EDT Gender Identity Female 06/15/2022 10:14 AM EDT Sexual Orientation Straight 06/15/2022 10 :14 AM EDT documented as of this encounter Functional Status * Over the past 2 weeks, how often have you been bothered by any of the following problems? Question Answer Date of Assessment Author Patient Health Questionnaire-2 Score 6 12/15 12:08 PM EDT Dionna Grewal MA * Little interest or pleasure in doing things Answer Date of Assessment Author Nearly every day 01/02/2025 12:08 PM EDT Dionna Grewal MA * Feeling down, depressed, or hopeless Answer Date of Assessment Author Nearly every day 01/02/2025 12:08 PM EDT Dionna Grewal MA * Trouble falling or staying asleep, or sleeping too much Answer Date of Assessment Author More than half the days 01/02/2025 12:08 PM EDT Dionna Grewal MA * Feeling tired or having little energy Answer Date of Assessment Author Nearly every day 01/02/2025 12:08 PM EDT Dionna Grewal MA * Poor appetite or overeating Answer Date of Assessment Author Nearly every day 01/02/2025 12:08 PM EDT Dionna Grewal MA * Feeling bad about yourself - or that you are a failure or have let yourself or your family down Answer Date of Assessment Author Not at all 01/02/2025 12:08 PM EDT Alisha Grewal MA * Trouble concentrating on things, such as reading the newspaper or watching television Answer Date of Assessment Author Nearly every day 01/02/2025 12:08 PM EDT Dionna Grewal MA * Moving or speaking so slowly that other people could have noticed? Or the opposite - being so fidgety or restless that you have been moving around a lot more than usual. Answer Date of Assessment Author Nearly every day 01/02/2025 12:08 PM EDT Dionna Grewal MA * Thoughts that you would be better off or hurting yourself in some way Answer Date of Assessment Author Not at all 01/02/2025 12:08 PM EDT Alisha Grewal MA * Patient Health Questionnaire-9 Score Answer Date of Assessment Author 20 01/02/2025 12:08 PM EDT Alisha Grewal MA * How difficult have these problems made it for you to do your work, take care of things at home, or get along with other people? Answer Date of Assessment Author Extremely difficult 01/02/2025 12:08 PM EDT Dionna Bowens MA documented as of this encounter Plan of Treatment Upcoming Encounters Date Type Department Care Team (Late st Contact Info) Description 01/26/2025 11:00 AM EDT Medication Management [facility] [address] [place] [address] Valentín Moreno PharmD [address] [place] [address] documented as of this encounter Goals Goal Patient Goal Type Associated Problems Recent Progress Patient-Stated? Author Blood Pressure < 140/90 Blood Pressure 143/83(2024 10:50 AM EDT) No Valentín Moreno PharmD Hemoglobin A1c < 7 Result Component 6(01/02/2025 11:18 AM EDT) No Valentín Moreno PharmD documented as of this encounter Visit Diagnoses Not on filedocumented in this encounter Additional Health Concerns Assessment Noted Time PHQ-9 Depression Total Score: 025 12:08 PM EDT documented as of this encounter Care Teams Customer Account Executive Relationship Specialty Start Date End Date Phyllis Silva MD [address] [place] [address] PCP - General Family Medicine 08/16/18 Valentín Moreno, JulioD [address] [place] [address] Pharmacist Internal Medicine 05/25/23 documented as of this encounter
--- OUTSIDE RECORDS SUMMARY | 2025-01-02 13:01 | XMS_ITS | Encounter Summary ---
Author Organization [employer] Address [address] [facility] [address] [place] [address] Care Team Providers Care Senior Ux Developer Name Role Phone Phyllis Silva MD Primary Care Provider [phone] Valentín Moreno PharmD Unavailable Encounter Details Date Type Department Care Team (Late st Contact Info) Description 12/30/2023 Abstract [facility] [address] [place] [address] Phyllis Silva MD [address] [place] [address] Social History Tobacco Use Types Packs/Day Years [...] Description 01/26/2025 11:00 AM EDT Medication Management [facility] [address] [place] [address] Valentín Moreno PharmD [address] [place] [address] documented as of this encounter Goals Goal Patient Goal Type Associated Problems Recent Progress Patient-Stated? Author Blood Pressure < 140/90 Blood Pressure 143/83(2024 10:50 AM EDT) No Valentín Moreno, PharmAmber Hemoglobin A1c < 7 Result Component 6(01/02/2025 [...] documented as of this encounter Care Teams Senior Ux Developer Relationship Specialty Start Date End Date Phyllis Silva MD [address] [place], [place] [phone] PCP - General Family Medicine 08/16/18 Valentín Moreno, JulioD [address] [place] [address] Pharmacist Internal Medicine 05/25/23 documented as of this encounter
--- OUTSIDE RECORDS SUMMARY | 2025-01-02 13:01 | XMS_ITS | Encounter Summary ---
Author Organization [employer] Address [address] [facility] 7t [place] [address] Care Team Providers Care Twisting Department End Finder Name Role Phone Phyllis Silva MD Primary Care Provider [phone] Valentín Moreno PharmD Unavailable Encounter Details Date Type Department Care Team (Late st Contact Info) Description 12/16/2022 Orders Only [facility] [address] [place] [address] Lani Silver LPN Social History Tobacco Use [...] Encounters Date Type Department Care Team (Late Contact Info) Description 01/26/2025 11:00 AM EDT Medication Management [facility] [address] [place] [address] Valentín Moreno, PharmD [address] [place] [address] documented as of this encounter Visit Diagnoses Not on filedocumented in this encounter Care Teams Twisting Department End Finder Relationship Specialty Start Date End Date Phyllis Silva MD [address] [place], [place] [phone] PCP - General Family Medicine 08/16/18 Valentín Moreno, Migue [address] [place] [address] Pharmacist Internal Medicine 05/25/23 documented as of this encounter
--- OUTSIDE RECORDS SUMMARY | 2025-01-02 13:01 | XMS_ITS | Encounter Summary ---
Author Organization [employer] Address [address] [facility] [address] [place] [address] Care Team Providers Care Qc Analyst Name Role Phone Phyllis Silva MD Primary Care Provider [phone] Valentín Moreno PharmD Unavailable Encounter Details Date Type Department Care Team (Latest Contact Info) Description 01/02/2025 10:45 AM EDT Office Visit [facility] MEDICINE [address], [place] [phone] Phyllis Silva MD [address], [place] [phone] Routine general medical examination at a health care facility (Primary Dx); Hypertension, unspecified type; Dyslipidemia; Type 2 diabetes mellitus without complication, without long-term current use of insulin ([facility]); Xanthoma of eyelid; Xanthelasma of eyelids of both eyes, unspecified eyelid; Cobalamin deficiency; Tubular adenoma of colon; Gastroesophageal reflux disease, unspecified whether esophagitis present; Chronic idiopathic constipation; Abnormal liver function test; Urinary incontinence, unspecified type; Primary osteoarthritis involving multiple joints; Alopecia areata; Lichen sclerosus; Dietary counseling; Exercise counseling; Overweight; Right foot pain Social History Tobacco Use Types Packs/Day Years [...] AM EDT documented as of this encounter Last Filed Vital Signs Vital Sign Reading Time Taken Comments Blood Pressure 143/83 01/02/2025 10:50 AM EDT Pulse 56 01/02/2025 10:50 AM EDT Temperature 36.5 ??C (97.7 ??F) 01/02/2025 10:50 AM E DT Respiratory Rate 18 01/02/2025 10:50 AM EDT Oxygen Saturation 98% 01/02/2025 10:50 AM EDT Inhaled Oxygen Concentration - - Weight 78.3 kg (172 lb 9.6 oz) 01/02/2025 10:50 AM EDT Height 162.6 cm (5' 4 ) 01/02/2025 10:50 AM EDT Body Mass Index 29.63 01/02/2025 10:50 AM EDT documented in this encounter Functional Status * Over the [...] Author Nearly every day 01/02/2025 12:08 PM LUCILAT Dionna Grewal MA * Moving or speaking [...] [place] documented as of this encounter Miscellaneous Notes * Assessment & Plan Note - Lani Hoover MA - 01/02/2025 9:16 AM EDTAssociated Problem(s): Lichen sclerosus - vaginal area - judicious use of clobetasol * Assessment & Plan Note - Lani Hoover MA - 01/02/2025 9:16 AM EDTAssociated Problem(s): Alopecia areata -seen by Dr. Pagan -treated with intralesional steroid, which has been effective -Normal TSH in Apr 2020 -RPR negative in Apr 2019 -Trialed hydrocortisone lotion to scalp, which was ineffective -Trialed minoxidil which was not satisfactory outcome -seen by Dr. Pagan and received intralesional steroid, which has been effective * Assessment & Plan Note - Lani Hoover MA - 01/02/2025 9:16 AM EDTAssociated Problem(s): Primary osteoarthritis involving multiple joints -Apr 2019 AYE / RF / ESR were wnl -Continue APAP prn -tried Tizanidine in the past -seen by Physical Therapy in the past -Recommended Acupuncture -continue working on lifestyle modifications * Assessment & Plan Note - Lani Hoover MA - 01/02/2025 9:16 AM EDTAssociated Problem(s): Urinary incontinence - likely mixed, stress and OAB - Discussed about Pelvic floor muscle exercise - Will write script for incontinence supply - recommended to discuss with her BARREL LINE OPERATOR for stress incontinence evaluation and treatment * Assessment & Plan Note - Lani Hoover MA - 01/02/2025 9:15 AM EDTAssociated Problem(s): Tubular adenoma of colon 09/08/[address] Walls. Pathology report tubular adenoma * Assessment & Plan Note - Lani Hoover MA - 01/02/2025 9:15 AM EDTAssociated Problem(s): Gastroesophageal reflux disease -On 01/06/18 EGD done which showed normal exam except mild hiatal hernia. -Colonoscopy on 09/08/22, tubular adenoma, repeat in 3yrs -Previously prescribed sucralfate and omeprazole -continue omeprazole 20 mg prn * Assessment & Plan Note - Lani Hoover MA - 01/02/2025 9:15 AM EDTAssociated Problem(s): Chronic idiopathic constipation Last seen by GI on 09/22/22. -continue Fiber-rich diet -Colonoscopy on 09/08/22, Dx Tubular Adenoma. Recommended repeat in 3yrs. -Continue Senna * Assessment & Plan Note - Lani Hoover MA - 01/02/2025 9:14 AM EDTAssociated Problem(s): Abnormal liver function test Evaluate US * Assessment & Plan Note - Lani Hoover MA - 01/02/2025 9:14 AM EDTAssociated Problem(s): Type 2 diabetes mellitus ([facility]) diagnosed in July 2020 -A1C 6.0% on 01/02/25, slight increase from 5.9% on 02/22/24. -continue metformin ER 1g twice daily, lik -continue working on lifestyle modifications -Comprehensive / dilated eye exam: 03/02/22 at [facility], no diabetic retinopathy -Comprehensive foot exam: 01/02/25 -Last microalbumin test: 11/17/24 UACR 11.2 -Last lipid profile: 11/17/24 -Last dental exam: -follow up in 3 mo or sooner prn * Assessment & Plan Note - Lani Hoover MA - 01/02/2025 9:13 AM EDTAssociated Problem(s): Xanthelasma of eyelid, bilateral -seen by optmetrist and patient education was provided -seen by client account specialist and was informed that treatment is considered as cosmetic, not medical -patient is not interested in pursuing aesthetic surgery * Assessment & Plan Note - Lani Hoover MA - 01/02/2025 9:13 AM EDTAssociated Problem(s): Hypertension Goal BP < 140/90 per JNC-8, < 130/80 per ACC/AHA. BP not at goal today. -Continue monitoring home BP. -Continue working on life style modifications. -Continue amlodipine 5 mg nightly. -Cont losartan 50 mg daily for renal protection. -Treatment Hx [...] for no ischemia. -f/u in 3 months * Assessment & Plan Note - Lani Hoover MA - 01/02/2025 9:13 AM EDTAssociated Problem(s): Dyslipidemia -Last lipid profile: 08/25/23 TC 165; TG 102; HDL 50; LDL 95 -Xanthelasma -Current medication: atorvastatin 10 mg qhs -Continue working on lifestyle modifications. documented in this encounter Plan of Treatment Upcoming Encounters Date Type Department Care Team (Late st Contact Info) Description 01/26/2025 11:00 AM EDT Medication Management [facility] MEDICINE [address] [place] [address] Valentín Moreno PharmD [address] [place] [address] documented as of this encounter Goals Goal Patient Goal Type Associated Problems Recent Progress Patient-Stated? Author Blood Pressure < 140/90 Blood Pressure 143/83(2024 10:50 AM EDT) No Valentín Moreno, PharmAmber Hemoglobin A1c < 7 Result Component 6(01/02/2025 11:18 AM EDT) No Valentín Moreno PharmD documented as of this encounter Procedures Procedure Name Priority Date/Time Associated Diagnosis Comments XR FOOT 3+ VIEWS RIGHT Routine 01/02/2025 11:47 AM EDT Right foot pain POCT GLYCATED HEMOGLOBIN, TOTAL Routine 01/02/2025 11:18 AM EDT Type 2 diabetes mellitus without complication, without long-term current use of insulin (CMS/HCC) POCT GLUCOSE Routine 01/02/2025 11:18 AM EDT Type 2 diabetes mellitus without complication, without long-term current use of insulin ([facility]) documented in this encounter Results * XR Foot 3+ Views Right (01/02/2025 11:47 AM EDT) Anatomical Region Laterality Modality Lower Extremities, Foot Right Radiogra phic Imaging 01/02/2025 11:4 7 AM EDT Narrative 01/02/2025 12:32 PM EDT ?[facility] ?[address] ?[place] [address] ?XRay Report ? Signed ? Patient: Stewart,Lilia ?MR#: [id number] ?? 9 ? : 1975 ?Acct:[id number] ? Age/Sex: 49 / F ?ADM Date: 01/02/25 ? Loc: HO.HHCX ? Attending Dr: Phyllis Silva MD ? Ordering Physician: Phyllis Silva MD ?? Date of Service: 01/02/25 ?? Procedure(s): XR foot RT min 3V ?? Accession Number(s): [id number] ? cc: Phyllis Silva MD ? EXAMINATION: ??XR FOOT 3 OR MORE VIEWS RIGHT ? HISTORY: right foot pain, at 4th MTP. ??lateral. ??No known injury. ? COMPARISON: There are no prior studies available for comparison. ? FINDINGS: ? Three views of the right foot are submitted. ??Osseous mineralization is ?? normal. ??There is no fracture or dislocation. ??There is mild ?? degenerative change of the 1st MTP joint. There are calcaneal spurs at ?? the plantar aspect and at the insertion of the Achilles tendon. ??The ?? soft tissues are unremarkable. ? XR/XR foot RT min 3V ?? IMPRESSION: ? Mild degenerative change of the 1st MTP joint. Calcaneal spurs as ?? described. No evidence of fracture. ? Electronically signed by: ??Uvaldo Richard MD ??01/02/2025 12:29 PM EDT ?? RP ? Dictated By: ?Uvaldo Richard MD ? Signed By: ?<Electronically signed by Uvaldo Richard MD in OV> ?01/02/25 1229 ? DD/ 1147 ? TD/TT: 01/02/25 1200 ? Manufacturing Engineering Technologist: ? Procedure Note Donotvanessater, Image - 01/02/[address] [address] XRay Report Signed Patient: Marvin Stewart#: [id number] 9 : 1975Acct:[id number] Age/Sex: 49 / FADM Date: 01/02/25 Loc: HO.HHX Attending Dr: Phyllis Silva MD Ordering Physician: Phyllis Silva MD Date of Service: 01/02/25 Procedure(s): XR foot RT min 3V Accession Number(s): [id number] cc: Phyllis Silva MD EXAMINATION: XR FOOT 3 OR MORE VIEWS RIGHT HISTORY: right foot pain, at 4th MTP. lateral. No known injury. COMPARISON: There are no prior studies available for comparison. FINDINGS: Three views of the right foot are submitted. Osseous mineralization is normal. There is no fracture or dislocation. There is mild degenerative change of the 1st MTP joint. There are calcaneal spurs at the plantar aspect and at the insertion of the Achilles tendon. The soft tissues are unremarkable. XR/XR foot RT min 3V IMPRESSION: Mild degenerative change of the 1st MTP joint. Calcaneal spurs as described. No evidence of fracture. Electronically signed by: Uvaldo Richard MD 01/02/2025 12:29 PM EDT Dictated By: Uvaldo Richard MD Signed By: <Electronically signed by Uvaldo Richard MD in OV> 01/02/25 1229 DD/ 1147 TD/TT: 01/02/25 1200 Manufacturing Engineering Technologist: Phyllis Silva MD IMG XR PROCEDURES Final Result * POCT HGB A1C (01/02/2025 11:18 AM EDT) Hemoglobin A1C 6.0 4.0 - 6.0 % QC Media Lot # [id number] Lot# Expiration Date Blood 01/02/2025 11:1 8 AM EDT Phyllis Silav MD POINT OF CARE TEST ENTER/EDIT OR DERABLES Final Result * POCT Glucose (01/02/2025 11:18 AM EDT) Glucose Blood, POC 120 60 - 200 mg/dL QC Media Lot # [id number] Lot# Expiration Date 101,425 Blood Capillary blood specimen / Unknown 01/02/2025 11:18 AM EDT Phyllis Silva MD POINT OF CARE TEST ENTER/EDIT OR DERABLES Final Result documented in this encounter Visit Diagnoses Diagnosis Routine general medical examination at a health care facility- Primary Hypertension, unspecified type Dyslipidemia Other and unspecified hyperlipidemia Type 2 diabetes mellitus without complication, without long-term current use of insulin ([facility]) Xanthoma of eyelid Mixed hyperlipidemia Xanthelasma of eyelids of both eyes, unspecified eyelid Cobalamin deficiency Other B-complex deficiencies Tubular adenoma of colon Benign neoplasm of colon Gastroesophageal reflux disease, unspecified whether esophagitis present Chronic idiopathic constipation Unspecified constipation Abnormal liver function test Nonspecific abnormal results of liver function study Urinary incontinence, unspecified type Primary osteoarthritis involving multiple joints Alopecia areata Lichen sclerosus Circumscribed scleroderma Dietary counseling Dietary surveillance and counseling Exercise counseling Overweight Right foot pain Pain in soft tissues of limb documented in this encounter Additional Health Concerns Assessment Noted Time PHQ-9 Depression Total Score: 025 12:08 PM EDT documented as of this encounter Care Teams Qc Analyst Relationship Specialty Start Date End Date Phyllis Silva MD [address] [place] [address] PCP - General Family Medicine 08/16/18 Valentín Moreno, PharmD [address] [place] [address] Pharmacist Internal Medicine 05/25/23 documented as of this encounter
--- OUTSIDE RECORDS SUMMARY | 2025-01-02 13:01 | XMS_ITS | Clinical Summary ---
Author Organization [employer] Address [address] [facility] [address] [place] [address] Care Team Providers Care Cdl A Driver Name Role Phone Phyllis Silva MD Primary Care Provider [phone] Valentín Moreno PharmD Unavailable [phone] Allergies No known active allergies Medications * This document contains information received from the source organization and may not represent a complete record from that organization. Blood Glucose Monitoring Suppl (FreeStyle Lite) w/Device kit 1 each 3 times daily. 1 kit 023 Active Blood Pressure kitIndications: Essential hypertension Use as directed daily 1 kit 023 Active Ventolin HFA 108 (90 Base) MCG/ACT [...] AT BEDTIME AFTER A MEAL 30 tablet 11 024 Active metFORMIN XR (Glucophage-XR) 500 MG 24 hr tablet TAKE 2 TABLETS BY MOUTH TWICE DAILY, DO NOT BREAK, CRUSH, DISSOLVE OR CHEW 120 tablet 024 Active atorvastatin (Lipitor) 10 MG tabletIndicatio ns:Type 2 diabetes mellitus without complication, without long-term current use of insulin (CMS/HCC) TAKE 1 TABLET BY MOUTH EVERY DAY 90 tablet 025 Active Trulicity 1.5 MG/0.5ML solution auto-injectorIn dications:Type 2 diabetes mellitus without complication, without long-term current use of insulin (CMS/HCC) INJECT ONE PEN (=1.5MG) SUBCUTANEOUSLY ONCE A WEEK DIRECTED 2 mL 5 025 Active hydrOXYzine pamoate (Vistaril) 25 MG capsuleIndicati ons:Anxiety TAKE 1 TO 2 CAPSULES BY MOUTH EVERY 6 HOURS NEEDED FOR ANXIETY 60 capsule 025 Active amLODIPine (Norvasc) 5 MG tabletIndicatio ns:Hypertension , unspecified type Take 1 tablet by mouth daily 90 tablet 1 025 Active cyanocobalamin (Vitamin B-12) 1000 MCG tablet Take 1 tablet (1,000 mcg) by mouth Once per day. 90 tablet 025 Active losartan (Cozaar) 50 MG tabletIndicatio ns:Type 2 diabetes mellitus without complication, without long-term current use of insulin (CMS/HCC) Take 1 tablet (50 mg) by mouth Once per day. 90 tablet 3 025 Active Alcohol Swabs (Alcohol Prep) padsIndications :Type 2 diabetes mellitus without complication, without long-term current use of insulin (CMS/HCC) Use to test blood sugar daily as directed. 100 each 3 025 Active FreeStyle lancetsIndicati ons:Type 2 diabetes mellitus without complication, without long-term current use of insulin (CMS/HCC) 1 each by Other route Once per day. 100 each 3 Active glucose blood (FREESTYLE LITE) test stripIndication s:Type 2 diabetes mellitus without complication, without long-term current use of insulin ([facility]) Use to check blood sugar daily as directed. 100 each 3 Active FLUoxetine (PROzac) 40 MG capsule TAKE 2 CAPSULES BY MOUTH EVERY DAY IN THE MORNING 90 capsule 3 Active cetirizine (ZyrTEC) 10 MG chewable tablet Chew 1 tablet (10 mg) Once per day. 90 tablet 1 Active cromolyn (Opticrom) 4 % ophthalmic solution Administer 1 drop into both eyes 4 times daily. 10 mL 3 Active Alcohol Swabs (Alcohol Prep) pads Check blood glucose 3 times daily and as needed 100 each 023 2024 Discontinued(R eorder (will not trigger notification to Pharmacy)) FreeStyle lancets 1 each by Other route 3 times daily. 100 each 023 2024 Discontinued(R eorder (will not trigger notification to Pharmacy)) FREESTYLE LITE test stripIndication s:Type 2 diabetes mellitus without complication, without long-term current use of insulin ([facility]) Check blood glucose three times daily 100 each 12 023 2024 Discontinued(R eorder (will not trigger notification to Pharmacy)) lisinopril 30 MG tabletIndicatio ns:Essential hypertension Take 1 tablet (30 mg) by mouth in the morning. 30 tablet 023 2023 Discontinued cetirizine (ZyrTEC) 10 MG tablet Take 1 tablet (10 mg) by mouth in the morning. 30 tablet 023 2024 Discontinued(M ed list cleanup (will not trigger notification to Pharmacy)) diphenhydrAMINE (BENADryl) 25 MG tablet Take 1 tablet (25 mg) by mouth if needed at bedtime (cough). 30 tablet 1 024 2024 Discontinued(M ed list cleanup (will not trigger notification to Pharmacy)) Breo Ellipta 200-25 MCG/ACT aerosol powder INHALE 1 PUFF BY MOUTH EVERY DAY 024 2024 Discontinued(M ed list cleanup (will not trigger notification to Pharmacy)) amLODIPine (Norvasc) 5 MG tabletIndicatio ns:Hypertension , unspecified type Take 1 tablet by mouth daily 90 tablet 1 024 2024 Discontinued(R eorder (will not trigger notification to Pharmacy)) senna (Senokot) 8.6 MG tablet TAKE 2 TABLETS BY MOUTH EVERY DAY AT BEDTIME NEEDED FOR CONSTIPATION 024 2024 Discontinued(M ed list cleanup (will not trigger notification to Pharmacy)) FLUoxetine (PROzac) 20 MG capsule TAKE 2 CAPSULES BY MOUTH EVERY DAY IN THE MORNING 60 capsule 1 024 2024 Discontinued(R eorder (will not trigger notification to Pharmacy)) losartan (Cozaar) 25 MG tabletIndicatio ns:Hypertension , unspecified type TAKE 1 TABLET BY MOUTH EVERY DAY IN THE MORNING 90 tablet 1 025 2024 Discontinued(D ose adjustment) cyanocobalamin (Vitamin B-12) 1000 MCG tablet TAKE 1 TABLET BY MOUTH EVERY DAY 90 tablet 025 2024 Discontinued(R eorder (will not trigger notification to Pharmacy)) FreeStyle lancetsIndicati ons:Type 2 diabetes mellitus without complication, without long-term current use of insulin ([facility]) 1 each by Other route Once per day. 100 each 3 025 2024 Discontinued(R eorder (will not trigger notification to Pharmacy)) glucose blood (FREESTYLE LITE) test stripIndication s:Type 2 diabetes mellitus without complication, without long-term current use of insulin ([facility]) Use to check blood sugar daily as directed. 100 each 3 025 2024 Discontinued(R eorder (will not trigger notification to Pharmacy)) cetirizine (ZyrTEC) 10 MG chewable tablet Chew 10 mg Once per day. 2024 Discontinued(R eorder (will not trigger notification to Pharmacy)) cromolyn (Opticrom) 4 % ophthalmic solution Administer 1 drop into both eyes 4 times daily. 2024 Discontinued(R eorder (will not trigger notification to Pharmacy)) Active Problems Problem Noted Date Diagnosed Date Abnormal liver function test 11/30/2023 Assessment & Plan (01/02/2025 9:14 AM EDT): Evaluate US Assessment & Plan (11/30/2023 5:01 PM EDT): Evaluate US Lichen sclerosus 09/05/2023 Assessment & Plan (01/02/2025 9:16 AM EDT): - vaginal area - judicious use of clobetasol Assessment & Plan (09/05/2023 11:47 AM EST): - vaginal area - judicious use of clobetasol Tubular adenoma of colon 09/05/2023 Assessment & Plan (01/02/2025 9:15 AM EDT): 09/08/[address] Walls. Pathology report tubular adenoma Assessment & Plan (09/05/2023 12:05 PM EST): 09/08/[address] Walls. Pathology report tubular adenoma Urinary incontinence 09/05/2023 Assessment & Plan (01/02/2025 9:16 AM EDT): - likely mixed, stress and OAB - Discussed about Pelvic floor muscle exercise - Will write script for incontinence supply - recommended to discuss with her PIT OPERATOR for stress incontinence evaluation and treatment Assessment & Plan (09/05/2023 12:11 PM EST): - likely mixed, stress and OAB - Discussed about Pelvic floor muscle exercise - Will write script for incontinence supply - recommended to discuss with her PIT OPERATOR for stress incontinence evaluation and treatment Chronic idiopathic constipation 02/22/2023 Assessment & Plan (01/02/2025 9:15 AM EDT): Last seen by GI on 09/22/22. -continue Fiber-rich diet -Colonoscopy on 09/08/22, Dx Tubular Adenoma. Recommended repeat in 3yrs. -Continue Senna Assessment & Plan (02/22/2023 2:12 PM EDT): Last seen by GI on 09/22/22. -continue Fiber-rich diet -Colonoscopy on 09/08/22, Dx Tubular Adenoma. Recommended repeat in 3yrs. -Continue Senna Xanthelasma of eyelid, bilateral 02/22/2023 Assessment & Plan (01/02/2025 9:13 AM EDT): -seen by optmetrist and patient education was provided -seen by bulk driver and was informed that treatment is considered as cosmetic, not medical -patient is not interested in pursuing aesthetic surgery Assessment & Plan (09/05/2023 11:49 AM EST): -seen by optmetrist and patient education was provided -seen by bulk driver and was informed that treatment is considered as cosmetic, not medical -patient is not interested in pursuing aesthetic surgery Assessment & Plan (02/22/2023 1:51 PM EDT): -seen by optmetrist and patient education was provided -monitor for now Alopecia areata 02/22/2023 Assessment & Plan (01/02/2025 9:16 AM EDT): -seen by Dr. Pagan -treated with intralesional steroid, which has been effective -Normal TSH in Apr 2020 -RPR negative in Apr 2019 -Trialed hydrocortisone lotion to scalp, which was ineffective -Trialed minoxidil which was not satisfactory outcome -seen by Dr. Pagan and received intralesional steroid, which has been effective Assessment & Plan (02/22/2023 1:51 PM EDT): [...] (09/05/2023 12:09 PM EST): - Followed by PIT OPERATOR - PAP in January 2023, NILM with negative high-risk HPV - US in January 2023 showed: normal thickened of endometrium; right ovarian cyst 1.8 cm. Assessment & Plan (02/22/2023 2:07 PM EDT): Scheduled for Endometrial Biopsy on 03/09/23 -US showed: normal thickened of endometrium; right ovarian cyst 1.8 cm suspected. Cobalamin deficiency 02/17/2023 Primary osteoarthritis involving multiple joints 02/17/2023 Assessment & Plan (01/02/2025 9:16 AM EDT): -Apr 2019 AYE / RF / ESR were wnl -Continue APAP prn -tried Tizanidine in the past -seen by Physical Therapy in the past -Recommended Acupuncture -continue working on lifestyle modifications Assessment & Plan (02/22/2023 2:13 PM EDT): -Apr 2019 AYE / RF / ESR were wnl -Continue APAP prn -tried Tizanidine in the past -seen by Physical Therapy in the past -Recommended Acupuncture -continue working on lifestyle modifications Type 2 diabetes mellitus 02/17/2023 Assessment & Plan (01/02/2025 11:29 AM EDT): diagnosed in July 2020 -A1C 6.0% on 01/02/25, slight increase from 5.9% on 02/22/24. -continue metformin ER 1g twice daily, lik -continue working on lifestyle modifications -Comprehensive / dilated eye exam: 03/02/22 at [facility], no diabetic retinopathy -Comprehensive foot exam: 01/02/25 -Last microalbumin test: 11/17/24 UACR 11.2 -Last lipid profile: 11/17/24 -Last dental exam: -follow up in 3 mo or sooner prn Assessment & Plan (02/22/2024 3:00 PM EDT): diagnosed in July 2020 -A1C 5.9% on 02/22/24. -continue metformin ER 1g twice daily, lik -continue working on lifestyle modifications -Comprehensive / dilated eye exam: 03/02/22 at [facility], no diabetic retinopathy -Comprehensive foot exam: 08/04/21 -Last microalbumin test: 02/24/23 UACR 9.2 -Last lipid profile: 08/25/23 -Last dental exam: -follow up in 3 mo or sooner prn Assessment & Plan (11/30/2023 5:01 PM EDT): diagnosed in July 2020 -A1C 5.7% on 11/30/23. -continue metformin ER 1g twice daily, lik -continue working on lifestyle modifications -Comprehensive / dilated eye exam: 03/02/22 at [facility], no diabetic retinopathy -Comprehensive foot exam: 08/04/21 -Last microalbumin test: 02/24/23 UACR 9.2 -Last lipid profile: 08/25/23 -Last dental exam: -follow up in 3 mo or sooner prn Assessment & Plan (09/05/2023 11:56 AM EST): diagnosed in July 2020 -A1C 6.7% on 06/30/23. -continue metformin ER 1g twice daily, lik -continue working on lifestyle modifications -Comprehensive / dilated eye exam: 03/02/22 at [facility], no diabetic retinopathy -Comprehensive foot exam: [...] -Comprehensive / dilated eye exam: 03/02/22 at [facility], no diabetic retinopathy -Comprehensive foot exam: 12/20/21 -Last microalbumin test: 12/13/20 UACR 28 -Last lipid profile: 08/06/20 -Last dental exam: Immunizations: Reviewed, updating Aspirin use: No strong indication at this time PHQ: Hx depression Dyslipidemia 08/26/2017 Assessment & Plan (01/02/2025 9:13 AM EDT): -Last lipid profile: 08/25/23 TC 165; TG 102; HDL 50; LDL 95 -Xanthelasma -Current medication: atorvastatin 10 mg qhs -Continue working on lifestyle modifications. Assessment & Plan (02/22/2024 4:36 PM EDT): [...] Gastroesophageal reflux disease 05/04/2012 Assessment & Plan (01/02/2025 9:15 AM EDT): -On 01/06/18 EGD done which showed normal exam except mild hiatal hernia. -Colonoscopy on 09/08/22, tubular adenoma, repeat in 3yrs -Previously prescribed sucralfate and omeprazole -continue omeprazole 20 mg prn Assessment & Plan (02/22/2023 2:09 PM EDT): -On 01/06/18 EGD done which showed normal exam except mild hiatal hernia. -Colonoscopy on 09/08/22, tubular adenoma, repeat in 3yrs -Previously prescribed sucralfate and omeprazole -continue omeprazole 20 mg prn Hypertension 05/04/2012 Assessment & Plan (01/02/2025 11:27 AM EDT): Goal BP < 140/90 per JNC-8, [...] -f/u in 3 months Assessment & Plan (02/22/2024 4:36 PM EDT): [...] today -pt agreed to be referred to [facility] Resolved Problems Problem Noted Date Diagnosed Date Resolved Date Chronic cough 08/31/2023 02/21/2024 Assessment & Plan (11/28/2023 6:07 PM EDT): - since Apr 2023 - DDx allergic rhinitis; asthma; post-COVID; ILD - Following with [facility] pul[facility], last seen by Dr. Parmar in [...] rhinitis; asthma; post-COVID; ILD - Following with [facility] pul[facility]; upcoming appointment for PFT and RAST - Discontinued lisinopril, but cough did not improve - continue current treatment per security solutions architect Lichen sclerosus of vulva 02/22/2023 Encounters Date Type Department Care Team Description 01/02/2025 10:45 AM EDT Office Visit [facility] [address] [place] [phone] Phyllis Silva MD Routine general medical examination at a health care facility (Primary Dx); Hypertension, unspecified type; Dyslipidemia; Type 2 diabetes mellitus without complication, without long-term current use of insulin (CMS/HCC); Xanthoma of eyelid; Xanthelasma of eyelids of both eyes, unspecified eyelid; Cobalamin deficiency; Tubular adenoma of colon; Gastroesophageal reflux disease, unspecified whether esophagitis present; Chronic idiopathic constipation; Abnormal liver function test; Urinary incontinence, unspecified type; Primary osteoarthritis involving multiple joints; Alopecia areata; Lichen sclerosus; Dietary counseling; Exercise counseling; Overweight; Right foot pain 01/02/2025 Travel 01/01/2025 Telephone [facility] [address] [place] [phone] Phyllis Silva MD chart prep 12/19/[address] [phone] Phyllis Silva MD Paperwork/Forms 12/18/[address] [phone] Phyllis Silva MD Type 2 diabetes mellitus without complication, without long-term current use of insulin (CMS/HCC) 12/15/2024 Travel 12/15/2024 Refill [facility] [address] [place] [address] Phyllis Silva MD Hypertension, unspecified type 11/30/2024 Refill [facility] [address] [place] [address] Jonathan Chamberlain MD Anxiety 11/21/2024 Refill [facility] [address], [place] [phone] Valentín Moreno, Migue Type 2 diabetes mellitus without complication, without long-term current use of insulin ([facility]) 11/17/2024 Orders Only [facility] [address], [place] [phone] Phyllis Silva MD 11/16/2024 Telephone [facility] [address], [place] [phone] Phyllis Silva MD Appointment Request 11/02/2024 Orders Only GENERIC EXTERNAL DATA DEPARTMENT Provider, Generic External Data 10/27/2024 Population Health Risk Score [facility] () Department [address] [place] [phone] Provider, Population Health Generic from Last 3 Months Immunizations Immunization Administration Dates Next Due Hep B, adult [...] Mass Index 29.63 01/02/2025 10:50 AM EDT Plan of Treatment Upcoming Encounters Date Type Department Care Team (Late st Contact Info) Description 01/26/2025 11:00 AM EDT Medication Management [facility] [address] [place] [phone] Valentín Moreno, PharmD [address] [place] [address] Health Maintenance Due Date Last Done Comments CT Colonography 1973 FIT DNA/Cologuard 1973 FIT 1973 FOBT 1975 Sigmoidoscopy 1975 Family Planning (PISQ) 01/15/1988 Diabetes: Foot Exam 08/31/2024 08/31/2023, 08/31/2023, 08/31/2023, Additional history exists Diabetes: Hemoglobin A1C 04/04/2025 025, 08/14/2024, 02/22/2024, Additional history exists Diabetes: Urine Protein Screening 11/17/2025 11/17/2024, 02/24/2023, 08/13/2021, Additional history exists Lipid Panel 11/17/2025 11/17/2024, 08/16, 02/24/2023, Additional history exists Alcohol/Substance Use Screening 01/02/2026 01/02/2025 Depression Screening 01/02/2026 01/02/2025, 01/03/20 Disability Screening 01/02/2026 01/02/2025 SDOH Screening 01/02/2026 01/02/2025 Tobacco Screening 01/02/2026 01/02/2025 Mammogram 03/01/2026 03/01/2024, 02/19/2023 Eye Exam 06/14/2026 [...] patient's age to complete this topic Meningococcal B Vaccine Aged Out No l onger eligible based on patient's age to complete [...] 11:18 AM EDT) No Valentín Moreno PharmD Procedures Procedure Name Priority Date/Time Associated Diagnosis Comments XR FOOT 3+ VIEWS RIGHT Routine 11:47 AM EDT Right foot pain POCT GLYCATED HEMOGLOBIN, TOTAL Routine 01/02/2025 11:18 AM EDT Type 2 diabetes mellitus without complication, without long-term current use of insulin ([facility]) POCT GLUCOSE Routine 01/02/2025 11:18 AM EDT Type 2 diabetes mellitus without complication, without long-term current use of insulin ([facility]) LIPID PANEL, STANDARD Routine 11/17/2024 9:57 AM EDT BASIC METABOLIC PANEL Routine 11/17/2024 9:57 AM EDT HEPATIC FUNCTION PANEL Routine 9:57 AM EDT ALBUMIN, RANDOM URINE W/CREATININE Routine 11/17/2024 9:57 AM EDT HEMATOXYLIN AND EOSIN STAIN Routine 11/02/2024 2:39 PM EDT BI MAMMOGRAM SCREENING TOMOSYNTHESIS BILATERAL Routine 03/01/2024 12:55 PM EDT PAP SMEAR Routine 02/03/2023 1:29 PM EDT HM COLONOSCOPY Routine 09/08/2022 [facility] HISTORICAL HEPATITIS C AB W/REFL TO HCV RNA, QN, PCR Routine 12/13/2020 1:18 PM EDT HIV 1/2 ANTIGEN/ANTIBODY, FOURTH GENERATION W/RFL Routine 12/13/2020 1:18 PM EDT [facility] HISTOR[facility] HPV MRNA E6/E7 Routine 05/19/2016 1:45 PM EDT from Last 3 Months or Most Recently Relevant to Health Maintenance Results * XR Foot 3+ Views Right (01/02/2025 11:47 AM EDT) Anatomical Region Laterality Modality Lower Extremities, Foot Right Radiogra phic Imaging 01/02/2025 11:4 7 AM EDT Narrative 01/02/2025 12:32 PM EDT ?[facility] ?[address] ?[place] [address] ?XRay Report ? Signed ? Patient: Lilia Stewart ?MR#: [id number] ?? 9 ? : 1975 ?Acct:[id number] ? Age/Sex: 49 / F ?ADM Date: 01/02/25 ? Loc: HO.HHCX ? Attending Dr: Phyllis Silva MD ? Ordering Physician: Phyllis Silva MD ?? Date of Service: 01/02/25 ?? Procedure(s): XR foot RT min 3V ?? Accession Number(s): [id number] ? cc: Phyllis Silva MD ? EXAMINATION: [...] ??Uvaldo Richard MD ??01/02/2025 12:29 PM EDT ? Dictated By: ?Uvaldo Richard MD ? Signed By: ?<Electronically signed by Uvaldo Richard MD in OV> ?01/02/25 1229 ? DD/ 1147 ? TD/TT: 01/02/25 1200 ? Insurance Clerk: ? Procedure Note Stephenbrianna, Martina - 01/02/[address] [address] XRay Report Signed Patient: Marvin Stewart#: [id number] 9 : 1975Acct:[id number] Age/Sex: 49 / FADM Date: 01/02/25 Loc: HO.HHCX Attending Dr: Phyllis Silva MD Ordering Physician: Phyllis Silva MD Date of Service: 01/02/25 Procedure(s): XR foot RT min 3V Accession Number(s): [id number] cc: Phyllis Silva MD EXAMINATION: XR FOOT [...] 01/02/25 1229 DD/ 1147 TD/TT: 01/02/25 1200 Insurance Clerk: Phyllis Silva MD IMG XR PROCEDURES Final Result * POCT HGB A1C (01/02/2025 11:18 AM EDT) Hemoglobin A1C 6.0 4.0 - 6.0 % QC Media Lot # [id number] Lot# Expiration Date Blood 01/02/2025 11:1 8 AM EDT Phyllis Silva MD POINT OF CARE TEST ENTER/EDIT OR DERABLES Final Result * POCT Glucose (01/02/2025 11:18 AM EDT) Glucose Blood, POC 120 60 - 200 mg/dL QC Media Lot # [id number] Lot# Expiration Date [id number] Blood Capillary blood specimen / Unknown 01/02/2025 11:18 AM EDT Phyllis Silva MD POINT OF CARE TEST ENTER/EDIT OR DERABLES Final Result * Albumin, Random Urine W/Creatinine (11/17/2024 9:57 AM EDT) Creatinine, Urine 266.67 mg/dL [facility] Microalbumin Urine 30.0 mg/L [facility] Microalbum Creatinine Ratio Ur 11.2 <30 ug/mg cr [facility] Comment:Albumin/Creatinine R atio Reference Ranges: Normal: < 30 ug/mg creatinine Microalbuminuria: 30 - 300 ug/mg creatinineClinical Albuminuria: > 300 ug/mg creatinine 11/17/2024 9:57 AM EDT 11/17/2024 10:56 AM EDT Phyllis Silva MD LAB URINE ORDERABLES Final Resul t [facility] [address] [place] [phone] * (ABNORMAL) Hepatic Function Panel (11/17/2024 9:57 AM EDT) Bilirubin, Total 0.4 0.0 - 1.0 mg/dL [facility] Bilirubin, Direct 0.2 0.0 - 0.5 mg/dL [facility] Aspartate Amino Transferase 20 5 - 31 U/L [facility] Alanine Aminotransferase 23 0 - 31 U/L [facility] Total Protein 7.3 6.5 - 8.0 g/dL [facility] Albumin Level 4.6 3.5 - 5.0 g/dL [facility] Alkaline Phosphatase 125(H) 39 - 117 U/L [facility] 11/17/2024 9:57 AM EDT 11/17/2024 11:18 AM EDT us Phyllis Silva MD LAB BLOOD ORDERABLES Final Resul t [facility] [address] [place] [phone] * Lipid Panel, Standard (11/17/2024 9:57 AM EDT) Triglycerides 123 <150 mg/dL [facility] Comment:Desirable Triglyceri de: less than 150 mg/dLBorderline High Triglyceride 150-199 mg/dLHigh Triglyceride: 200-499 mg/dLVery High Triglyceride: greater than or equal to 5OO mg/dL Cholesterol 144 <200 mg/dL [facility] Comment:Desirable Cholestero l: less than 200 mg/dLBorderline High Cholesterol: 200-239 mg/dLHigh Cholesterol: greater than 239 mg/dL LDL Cholesterol Calculated 74 <100 mg/dL [facility] Comment:Desirable LDL: less than 100 mg/dLNear Optimal/Above Optimal LDL: 110- 129 mg/dLBorderline High LDL: 130-159 mg/dLHigh LDL: 160-189 mg/dLVery High LDL: greater than or equal to 190 mg/dL HDL Cholesterol 46 >40 mg/dL [facility] Comment:Desirable HDL: great er than 40 mg/dL Note: This HDL assay may give artificially low results in patients with liver disease. 11/17/2024 9:57 AM EDT 11/17/2024 11:18 AM EDT Phyllis Silva MD LAB BLOOD ORDERABLES Final Resul t Performing Organization Address [facility] Co de Phone Number [facility] [address] [place] [phone] * (ABNORMAL) Basic Metabolic Panel (11/17/2024 9:57 AM EDT) Sodium 143 135 - 145 mmol/L [facility] Potassium 4.3 3.3 - 5.1 mmol/L [facility] Chloride 108 96 - 108 mmol/L [facility] Carbon Dioxide 27 22 - 29 mmol/L [facility] Anion Gap 12 12 - 20 [facility] Urea Nitrogen (BUN) 17(H) 9 - 16 mg/dL [facility] Creatinine, Serum 0.69 0.5 - 1.4 mg/dL [facility] Estimated Glomerular Filt Rate >60 [facility] Comment:Chronic Kidney Disea se: Estimated GFR < 60 mL/min/[id number] Kidney Disease: Estimated GFR < 15 mL/min/1.73m2 Glucose 127(H) 60 - 115 mg/dL [facility] Calcium 9.6 8.4 - 10.2 mg/dL [facility] 11/17/2024 9:57 AM EDT 11/17/2024 11:18 AM EDT Phyllis Silva MD LAB BLOOD ORDERABLES Final Resul t Performing Organization Address [facility] Co de Phone Number [facility] [address] [place] [phone] * Hematoxylin and Eosin Stain (11/02/2024 2:39 PM EDT) 11/02/2024 2:39 PM EDT 11/03/2024 8:19 AM EDT [facility] - 11/07/2024 4:56 PM EDT ----- ------- Name: Lilia Stewart ?Age/Sex: 49/F ? : 1975 Unit#: [id number] ?? Attend Dr: Candido Deleon MD ?Re11/02/24 ?Status: DEP REF ? Location: HO.LNP ?Disch: ? ----- ------- SPEC : [id number] ? RECD: 11/03/24-818 ? STATUS: ??SOUT ? REQ NUM: [id number] ? RYAN: 11/02/24-1439 ? SUBM DR: Candido Deleon MD ? [...] microscopic examination, 1 piece in cassette A. ??([facility]) Special studies ordered and performed: PAS stain Copies To: ?? Phyllis Silva MD ?? [facility] ?? [address] ?? [place] [address] ?? [phone] ?? Cadnido Deleon MD ?? [facility] ?? [address] ?? [place] [address] ?? [phone] ? CONTINUED ON NEXT PAGE ----- ------- Name: Lilia Stewart ?Age/Sex: 49/F ? : 1975 Unit#: [id number] ?? Attend Dr: Candido Deleon MD ?Re11/02/24 ?Status: DEP REF ? Location: HO.LNP ?Disch: ? ----- ------- SPEC : [id number] ? RECD: 11/03/24 ? STATUS: ??SOUT ? REQ NUM: [id number] ? RYAN: 11/02/24-6971 ? SUBM DR: Candido Deleon MD ? ENTERED: ??11/03/24 ?SP TYPE: Surgical ? OTHR DR: Phyllis Silva MD ? ORDERED: ??HE Stain/3, Gross Micro L4, Specials Gr. 1, PASF ? ----- ------- Signed (signature on file) Zaid Montes MD 11/07/241655 ? ----- ------- ? END OF REPORT ? us Generic External Data Provider LAB BLOOD ORDERAB LES Final Result [facility] [address] [place] [address] [phone] * BI Mammogram Screening Tomosynthesis Bilateral (03/01/2024 12:55 PM EDT) Anatomical Region Laterality Modality Breast Bilateral Mammography 03/01/2024 12:5 5 PM EDT Narrative 03/22/2024 2:09 PM EDT ? [facility] [place] ? [address] ?[place] [address] ? Mammography Report ? Signed ? Patient: Stewart,Lilia ?MR#: [id number] ?? 9 ? : 1975 ?Acct:[id number] ? Age/Sex: 49 / F ?ADM Date: 07/17/24 ? Loc: HO.MAMMO ? Attending Dr: Phyllis Silva MD ? Ordering Physician: Phyllis Silva MD ?Results: 1Negative ? Date of Service: 03/01/24 ?Follow Up: 1 Year From Orig ?? inal Mammogram ? Procedure(s): MM tomosynthesis screening BI ?? Accession Number(s): [id number] ? cc: Phyllis Silva MD ? EXAMINATION: [...] 1405 ? DD/ 1255 ? TD/TT: ? Insurance Clerk: ? Procedure Note Donotrhondainterpreter, Image - 03/22/2024 [facility] [address] [place], [place] [address] Mammography Report Signed Patient: Marvni Stewart#: [id number] 9 : 1975Acct:[id number] Age/Sex: 49 / FADM Date: 03/01/24 Loc: YINA Attending Dr: Phyllis Silva MD Ordering Physician: Phyllis Silva MDResults: 1Negative Date of Service: 03/01/24Follow Up: 1 Year From Orig inal Mammogram Procedure(s): MM tomosynthesis screening BI Accession Number(s): [id number] cc: Phyllis Silva MD EXAMINATION: MM SCREENING [...] in OV> 03/22/24 1405 DD/ 1255 TD/TT: Insurance Clerk: Phyllis Silva MD IMG BI PROCEDURES Final Result * Pap Smear (02/03/2023 1:29 PM EDT) 02/03/2023 1:29 PM EDT 02/04/2023 8:20 AM EDT [facility] - 02/25/2023 12:56 PM EDT ----- ------- Name: Lilia Stewart ?Age/Sex: 48/F ? : 1975 Unit#: [id number] ?? Attend Dr: Candido Deleon MD ?Re02/03/23 ?Status: DEP REF ? Location: HO.LNP ?Disch: ? ----- ------- SPEC : [id number] ? RECD: 02/04/23 ? STATUS: ??SOUT ? REQ NUM: [id number] ? RYAN: 02/03/23-1329 ? SUBM DR: Candido [...] 66, 68) ?? HPV testing performed by [facility], [place], [place]. ??See reference laboratory ?? pion of the EMR for entire report. ?Clinical Information LMP: Postmenopausal Previous PAP test: 08/20/20, Unknown findings Other history: Postmenopausal bleeding ? Material Received ?? ThinPrep-Cervical Copies To: ?? Phyllis Silva MD ?? [address] ?? [place] [address] ? Candido Deleon MD ?? [address] ?? [place] [address] ?? [phone] ----- ------- Signed (signature on file) ASHWIN Pierre ([facility]) 02/25/23 1256 ? ----- ------- ? END OF REPORT ? [facility] External Provider LAB JOHN OLKRISTIAN ORDERABLES Final Result [facility] [address] [place] [address] [phone] * Colonoscopy (09/08/2022) [facility] Colonoscopy 1 Historical Provider HEALTH MAINTENANCE Edited Result - Final * HEPATITIS C AB W/REFL TO HCV RNA, QN, PCR (12/13/2020 1:18 PM EDT) [facility] HEPATITIS C ANTIBODY NON-REACT MIQUEL NON-REACT MIQUEL [facility] INDEX 0.01 <1.00 [facility] Comment: ?? HCV antibody was non-reactive. There is no laboratory ?? evidence of HCV infection. ?? In most cases, no further action is required. However, if recent HCV exposure is suspected, a test for HCV RNA (test code 20667) is suggested. ?? For additional information please refer to http://Archsy.dentalDoctors/faq/JOF34w3 (This link is being provided for informational/ educational purposes only.) ?? 12/13/2020 1:18 PM EDT Phyllis Silva MD HISTORICAL/NON ORDERABLE LABS Fi nal Result Performing Organization Address [facility] Phone Number [facility] [address] [place] [address], * HIV 1/2 ANTIGEN/ANTIBODY,FOURTH GENERATION W/RFL (12/13/2020 1:18 PM EDT) HIV-1/2 ANTIGEN AND ANTIBODIES, 4TH GENERATION W/ REFLEX NON-REACT MIQUEL NON-REACT MIQUEL [facility] Comment: HIV-1 antigen and HIV-1/HIV-2 [...] ? For additional information please refer to http://Archsy.dentalDoctors/faq/RKX768 (This link is being provided for informational/ educational purposes only.) ? The performance of this assay has not been clinically validated in patients less than 2 years old. ?? 12/13/2020 1:18 PM EDT Phyllis Silva MD LAB BLOOD ORDERABLES Final Resul t Performing Organization Address [facility] Phone Number [facility] [address] [place] [address], * HPV mRNA E6/E7 (05/19/2016 1:45 PM EDT) HPV mRNA E6/E7 Not Detected NOT DETECTED [facility] Comment: This assay detects E6/E7 viral messenger RNA (mRNA) from 14 high-risk HPV types (16,18,31,33,35,39,45,51, 52,56,58,59,66,68). This test was performed using the APTIMA(R) TMA HPV Assay ([employer] For additional information, please refer to http://education.dentalDoctors/faq/SVG946l9 Test Performed by [facility], [facility], [address] [place] [address] Julián Adams M.D., Ph.D., Director of Laboratories , [facility] [id number] Please note: ??Effective 04/27/2016, HPV testing will be performed using [employer] APTIMA test which targets mRNA. Detecting mRNA instead of DNA, as in older methods, offers significant improvements in specificity. 05/19/2016 1:45 PM EDT us Phyllis Silva MD HISTORICAL/NON ORDERABLE LABS Fi nal Result [facility] [address] from Last 3 Months or Most Recently Relevant to Health Maintenance Insurance MEDICARE [facility] STANDARD Care Teams Cdl A Driver Relationship Specialty Start Date End Date Phyllis Silva MD [address] [place] [address] PCP - General Family Medicine 08/16/18 Valentín Moreno, PharmD [address] [place] [address] Pharmacist Internal Medicine 05/25/23
--- OUTSIDE RECORDS SUMMARY | 2025-01-02 13:01 | XMS_ITS | Encounter Summary ---
Author Organization [employer] Address [address] [facility] 7t [place] [address] Care Team Providers Care Sports Apparel Internship Name Role Phone Phyllis Silva MD Primary Care Provider [phone] Valentín Moreno PharmD Unavailable [phone] Reason for Referral * Consultation (Routine) - Canceled Specialty Diagnoses / Procedures Referred By Contac t Referred To Contact Pharmacy Diagnoses Type 2 diabetes mellitus without complication, without long-term current use of insulin ([facility]) Hypertension, unspecified type Phyllis Silva MD [address] [place] [address] Phone: tel: fax: Referral ID Status Reason Start Date Expiration Date V isits Requested Visits Authorized [id number] Canceled Consult and Treat 05/15/2024 05/15/2025 6 6 Encounter Details Date Type Department Care Team (Late st Contact Info) Description 05/15/2024 Orders Only [facility] [address] [place] [phone] Phyllis Silva MD [address] [place] [phone] Type 2 diabetes mellitus without complication, without [...] Description 01/26/2025 11:00 AM EDT Medication Management [facility] [address] [place] [address] Valentín Moreno, PharmD [address] [place], [place] [phone] Scheduled Referrals Name Type Priority Associated Diagnoses Orde r Schedule Referral to Pharmacy CDTM Outpatient Referral Routine Type 2 diabetes mellitus without complication, without long-term current use of insulin ([facility]) Hypertension, unspecified type Ordered: 05/15/2024 documented as [...] complication, without long-term current use of insulin ([facility])- Primary Hypertension, unspecified type documented in this encounter Additional Health Concerns Assessment Noted Time PHQ-9 Depression Total Score: 4 02/23/20 23 1:20 PM EDT documented as of this encounter Care Teams Sports Apparel Internship Relationship Specialty Start Date End Date Phyllis Silva MD [address] [place] [address] PCP - General Family Medicine 08/16/18 Valentín Moreno PharmD [address] [place] [address] Pharmacist Internal Medicine 05/25/23 documented as of this encounter
--- OUTSIDE RECORDS SUMMARY | 2025-01-02 13:01 | XMS_ITS | Encounter Summary ---
Author Organization [employer] Address [address] [facility] 7[address] [place] [address] Care Team Providers Care Motor Brakeman Name Role Phone Phyllis Silva MD Primary Care Provider [phone] Valentín Moreno PharmD Unavailable [phone] Encounter Details Date Type Department Care Team (Late st Contact Info) Description 10/06/2022 Orders Only [facility] [address] [place] [address] Lani Silver LPN Social History Tobacco Use [...] Description 01/26/2025 11:00 AM EDT Medication Management [facility] [address] [place] [address] Valentín Moreno, PharmD [address] [place] [address] documented as of this encounter Visit Diagnoses Not on filedocumented in this encounter Care Teams Motor Brakeman Relationship Specialty Start Date End Date Phyllis Silva MD [address] [place], [place] [phone] PCP - General Family Medicine 08/16/18 Valentín Moreno, Migue [address] [place] [address] Pharmacist Internal Medicine 05/25/23 documented as of this encounter
--- OUTSIDE RECORDS SUMMARY | 2025-01-02 13:01 | XMS_ITS | Encounter Summary ---
Author Organization [employer] Address [address] [facility] 7t [place] [address] Care Team Providers Care Forming Machine Upkeep Mechanic Name Role Phone Phyllis Silva MD Primary Care Provider [phone] Valentín Moreno PharmD Unavailable Encounter Details Date Type Department Care Team (Late st Contact Info) Description 08/21/2022 Orders Only [facility] [address] [place] [phone] Lacie Miles, RN [address] [place] [address] Social History Tobacco Use Types Packs/Day Years [...] Description 01/26/2025 11:00 AM EDT Medication Management [facility] [address] [place] [address] Valentín Moreno, PharmD [address] [place] [address] documented as of this encounter Procedures Procedure [...] 11:04 AM EST) Hemoglobin A1c 8.3 % [facility] Comment:Hemoglobin A1C Refer ence Range Adults: 4.8 - 6.0 % Non diabetic: < 6.0 % Goal: < 7.0 %Additional Action Suggested: > 8.0 %Note: Hemoglobin A1c results are invalid for patients with abnormal amounts of HbF. Blood transfusions may impact the HbA1c concentration in the patient sample. Estimated Average Glucose 192 mg/dL [facility] Comment:eAG = Estimated ave rage glucose which is %A1C expressed asaverage glucose, using the formula of the O2G-JjqayzlUzvmuds Glucose study (ADAG), Diabetes Care, Vol.31,#8,Mar. 2007 09/22/2022 11:0 4 AM EST 09/22/2022 11:04 AM EST us [facility] External Provider LAB BLO OD ORDERABLES Final Result [facility] [address] [place] [phone] * TSH W/Reflex to FT4 (09/22/2022 11:04 AM EST) TSH reflex Free T4 2.16 0.32 - 4.0 uIU/mL [facility] 09/22/2022 11:0 4 AM EST 09/22/2022 11:04 AM EST [facility] External Provider LAB BLO OD ORDERABLES Final Result Performing Organization Address City/[facility] [place] [facility] Co de Phone Number [facility] [address] [place] [phone] * Lipid Panel, Standard (09/22/2022 11:04 AM EST) Triglycerides 167 mg/dL [facility] Comment:Desirable Triglyceri de: less than 150 mg/dLBorderline High Triglyceride 150-199 mg/dLHigh Triglyceride: 200-499 mg/dLVery High Triglyceride: greater than or equal to 5OO mg/dL Cholesterol 229 mg/dL [facility] Comment:Desirable Cholestero l: less than 200 mg/dLBorderline High Cholesterol: 200-239 mg/dLHigh Cholesterol: greater than 239 mg/dL LDL Cholesterol Calculated 152 mg/dl [facility] Comment:Desirable LDL: less than 100 mg/dLNear Optimal/Above Optimal LDL: 110- 129 mg/dLBorderline High LDL: 130-159 mg/dLHigh LDL: 160-189 mg/dLVery High LDL: greater than or equal to 190 mg/dL HDL Cholesterol 44 mg/dL [facility] Comment:Desirable HDL: great er than 40 mg/dL Note: This HDL assay may give artificially low results in patients with liver disease. 09/22/2022 11:0 4 AM EST 09/22/2022 11:04 AM EST [facility] External Provider LAB BLO OD ORDERABLES Final Result Performing Organization Address City/[facility] [place] [facility]/ZIP Co de Phone Number [facility] [address] [place] [address] [phone] * (ABNORMAL) Comprehensive Metabolic Panel (09/22/2022 11:04 AM EST) Pathologist [facility] Sodium 139 135 - 145 mmol/L [facility] Potassium 4.8 3.3 - 5.1 mmol/L [facility] Chloride 104 96 - 108 mmol/L [facility] Carbon Dioxide 23 22 - 29 mmol/L [facility] Anion Gap 17 12 - 20 [facility] Urea Nitrogen (BUN) 10 9 - 16 mg/dL [facility] Creatinine, Serum 0.76 0.5 - 1.4 mg/dL [facility] Estimated Glomerular Filt Rate >60 [facility] Comment:NOTE: For -Am erican individuals, multiply the result by 1.210.Chronic Kidney Disease: Estimated GFR < 60 mL/min/1.15w9Yexchn Kidney Disease: Estimated GFR < 15 mL/min/1.73m2 Glucose 248(H) 60 - 115 mg/dL [facility] Calcium 9.7 8.4 - 10.2 mg/dL [facility] Bilirubin, Total 0.5 0.0 - 1.0 mg/dL [facility] Aspartate Amino Transferase 28 5 - 31 U/L [facility] Alanine Aminotransferase 52(H) 0 - 31 U/L [facility] Total Protein 7.2 6.5 - 8.0 g/dL [facility] Albumin Level 4.6 3.5 - 5.0 g/dL [facility] Alkaline Phosphatase 135(H) 39 - 117 U/L [facility] 09/22/2022 11:0 4 AM EST 09/22/2022 11:04 AM EST us [facility] External Provider LAB BLO OD ORDERABLES Final Result [facility] [address] [place] [address] [phone] * CBC auto differential (09/22/2022 11:04 AM EST) Pathologist [facility] White Blood Count 6.2 4.8 - 10.8 X10*3/uL [facility] Red Blood Count 4.90 4.20 - 5.50 X10*6/uL [facility] Hemoglobin 14.2 12.0 - 16.0 g/dl [facility] Hematocrit 41.8 37.0 - 47.0 % [facility] Mean Corpuscular Volume 85.3 80.0 - 98.0 fL [facility] Mean Corpuscular Hemoglobin 29.0 27.0 - 33.0 pg [facility] Mean Corpuscular HGB Conc 34.0 31.0 - 35.0 g/dl [facility] Red Cell Distribution Width 12.0 11.0 - 16.0 % [facility] Platelet Count 231 160 - 400 X10*3/uL [facility] Mean Platelet Volume 11.9 9.4 - 12.3 fL [facility] Neutrophils Percent Auto 53.8 45 - 73 % [facility] Imm Gran Pct Auto 0.3 0.0 - 0.4 % [facility] Lymphocytes Percent Auto 35.2 20 - 40 % [facility] Monocytes Percent Auto 6.6 2 - 11 % [facility] Eosinophils Percent Auto 3.5 0 - 4 % [facility] Basophils Percent Auto 0.6 0 - 2 % [facility] NRBC Pct Auto 0.0 0.0 - 0.2 /100WBC [facility] Neutrophils Absolute Auto 3.3 2.0 - 8.3 x10*3/uL [facility] Imm Gran Abs Auto 0.02 0.00 - 0.03 X10*3/uL [facility] Lymphocytes Absolute Auto 2.2 1.2 - 4.9 X10*3/uL [facility] Monocytes Absolute Auto 0.4 0.1 - 1.2 X10*3/uL [facility] Eosinophils Absolute Auto 0.2 0.0 - 0.4 X10*3/uL [facility] Basophils Absolute Auto 0.0 0.0 - 0.2 X10*3/uL [facility] NRBC Abs Auto 0.000 0.0 - 0.012 X10*3/uL [facility] 09/22/2022 11:0 4 AM EST 09/22/2022 11:04 AM EST us [facility] External Provider LAB BLO OD ORDERABLES Final Result Performing Organization Address City/State/[facility] Co de Phone Number [facility] [address] [place] [address] [phone] * Hematoxylin and Eosin Stain (09/08/2022 10:46 AM EST) 09/08/2022 10:4 6 AM EST 09/08/2022 12:35 PM EST Narrative [facility] - 09/09/2022 12:25 PM EST ----- ------- Name: Lilia Stewart ?Age/Sex: 47/F ? : 1975 Unit#: [id number] ?? Attend Dr: Reuben Walls MD ?Re09/08/22 ?Status: DEP SDC ? Location: HO.SSS ?Disch: ? ----- ------- SPEC : [id number] ?RECD: 09/08/22 ? STATUS: ??SOUT ? REQ NUM: [id number] ? RYAN: 09/08/226 ? SUBM DR: Reuben Walls MD ? [...] Stewart ?Age/Sex: 47/F ? : 1975 Unit#: [id number] ?? Attend Dr: Reuben Walls MD ?Re09/08/22 ?Status: DEP [facility] ? Location: HO.SSS ?Disch: ? ----- ------- SPEC : [id number] ?RECD: 09/08/22-1235 ? STATUS: ??SOUT ? REQ NUM: [id number] ? RYAN: 09/08/22-1046 ? SUBM DR: Reuben Walls MD ? ENTERED: ??09/08/22-1424 ?SP TYPE: Surgical ? OTHR DR: Phyllis Silva MD ? ORDERED: ??HE Stain/5, Gross Micro L4/2 ? COMMENTS: Part B: ??One of the tissue fragments is tiny and may be ?difficult to identify during processing and may fail to ?survive processing. Copies To: ?? Reuben Walls MD ?? [address] [facility] [address] ?? [place] [address] ?? [phone] ?? Phyllis Silva MD ?? [address] ?? [place] [address] ?? ----- ------- Signed (signature on file) Mona Avila 09/09/22 1225 ? ----- ------- ? END OF REPORT ? [facility] External Provider LAB BLO OD ORDERABLES Final Result Performing Organization Address [facility] de Phone Number [facility] [address] [place] [address] [phone] * (ABNORMAL) GLUCOSE, WHOLE BLOOD (09/08/2022 9:40 AM EST) Glucose, Whole Blood 198(H) 60 - 115 mg/dL [facility] Comment:METER #: [id number] 09/08/2022 9:40 AM EST 09/08/2022 9:43 AM EST [facility] External Provider LAB BLO OD ORDERABLES Final Result Performing Organization Address [facility] de Phone Number [facility] [address] [place] [address] [phone] documented in this encounter Visit Diagnoses Not on filedocumented in this encounter Care Teams Forming Machine Upkeep Mechanic Relationship Specialty Start Date End Date Phyllis Silva MD [address] [place], [place] [phone] PCP - General Family Medicine 08/16/18 Valentín Moreno, JulioD [address] [place], [place] [phone] Pharmacist Internal Medicine 05/25/23 documented as of this encounter
--- OUTSIDE RECORDS SUMMARY | 2025-01-02 13:01 | XMS_ITS | Encounter Summary ---
Author Organization [employer] Address [address] [facility] 7t [place] [address] Care Team Providers Care Concrete Tester Name Role Phone Phyllis Silva MD Primary Care Provider [phone] Valentín Moreno PharmD Unavailable [phone] Reason for Visit * Reason Onset Date Comments Appointment Request 11/16/2024 Encounter Details Date Type Department Care Team (Late st Contact Info) Description 11/16/2024 Telephone [facility] [address] [place] [address] Phyllis Silva MD [address] [place], [place] [phone] Appointment Request Social History Tobacco Use Types [...] the past 12 months, has t he [employer], gas, oil or water [employer] threatened to shut off services in your [...] for physical soonest availability. Please return call [phone] documented in this encounter Plan of Treatment Upcoming Encounters Date Type Department Care Team (Late st Contact Info) Description 01/26/2025 11:00 AM EDT Medication Management [facility] [address] [place] [address] Valentín Moreno PharmD [address] [place] [address] documented as of this encounter Goals Goal Patient Goal Type Associated Problems Recent Progress Patient-Stated? Author Blood Pressure < 140/90 Blood Pressure 143/83(2024 10:50 AM EDT) No Valentín Moreno PharmD Hemoglobin A1c < 7 Result Component 6(01/02/2025 11:18 AM EDT) No Moreno, Valentín, PharmD documented as of this encounter Visit Diagnoses Not on filedocumented in this encounter Additional Health Concerns Assessment Noted Time PHQ-9 Depression Total Score: 4 02/23/20 23 1:20 PM EDT documented as of this encounter Care Teams Concrete Tester Relationship Specialty Start Date End Date Phyllis Silva MD [address] [place] [address] PCP - General Family Medicine 08/16/18 Valentín Moreno, PharmD [address] [place] [address] Pharmacist Internal Medicine 05/25/23 documented as of this encounter
--- OUTSIDE RECORDS SUMMARY | 2025-01-02 13:01 | XMS_ITS | Encounter Summary ---
Author Organization [employer] Address [address] [facility] 7t [place] [address] Care Team Providers Care Scanner Supervisor Name Role Phone Phyllis Silva MD Primary Care Provider [phone] Valentín Moreno PharmD Unavailable [phone] Reason for Visit * Reason Onset Date Comments chart prep 01/01/2025 Encounter Details Date Type Department Care Team (Late st Contact Info) Description 01/01/[address] [facility] [address] [place] [address] Phyllis Silva MD [address] [place] [address] chart prep Social History Tobacco Use Types Packs/Day Years [...] encounter Miscellaneous Notes * Telephone Encounter - Kelly Mccormick [place] - 01/01/2025 12:04 PM EDT Chart Prep Labs: not done Images: done Vaccines due: Not Applicable Referrals: Completed Screenings: Foot Exam Overdue care gaps: A1C, Glucose, Sbirt, SDOH, PQ9, GAD7, Disability , and Oral Health documented in this encounter Plan of Treatment Upcoming Encounters Date Type Department Care Team (Late st Contact Info) Description 01/26/2025 11:00 AM EDT Medication Management [facility] [address] [place] [address] Valentín Moreno, PharmD [address] [place] [address] documented as of this encounter Goals Goal [...] Time PHQ-9 Depression Total Score: 4 02/23/20 1:20 PM EDT documented as of this encounter Care Teams Scanner Supervisor Relationship Specialty Start Date End Date Phyllis Silva MD [address] [place] [address] PCP - General Family Medicine 08/16/18 Valentín Moreno PharmD [address] [place] [phone] Pharmacist Internal Medicine 05/25/23 documented as of this encounter
--- OUTSIDE RECORDS SUMMARY | 2025-01-02 13:01 | XMS_ITS | Encounter Summary ---
Author Organization [employer] Address 75 [facility] 7 [place] [address] Care Team Providers Care Mixer And Blender Name Role Phone Phyllis Silva MD Primary Care Provider [phone] Valentín Moreno PharmD Unavailable Reason for Referral * Consultation (Routine) - Authorized Specialty Diagnoses / Procedures Referred By Contac t Referred To Contact Pharmacy Diagnoses Hypertension, unspecified type Type 2 diabetes mellitus without complication, without long-term current use of insulin ([facility]) Phyllis Silva MD [address] [place] [address] Phone: tel: fax: Referral ID Status Reason Start Date Expiration Date Visits Requested Visits Authorized [id number] Authorized Consult and Treat 06/27/2024 06/27/2025 6 6 Encounter Details Date Type Department Care Team (Late st Contact Info) Description 06/27/2024 Orders Only [facility] [address] [place] [address] Phyllis Silva MD [address] [place] [address] Hypertension, unspecified type (Primary Dx); Type 2 diabetes mellitus without complication, without long-term current use of insulin ([facility]) Social History Tobacco Use Types Packs/Day Years [...] Description 01/26/2025 11:00 AM EDT Medication Management [facility] [address] [place] [address] Valentín Moreno, PharmD [address] [place] [address] Scheduled Referrals Name Type Priority Associated Diagnoses Orde r Schedule Referral to Pharmacy CDTM Outpatient Referral Routine Hypertension, unspecified type Type 2 diabetes mellitus without complication, without long-term current use of insulin ([facility]) Ordered: 06/27/2024 documented as of this encounter [...] complication, without long-term current use of insulin ([facility]) documented in this encounter Additional Health Concerns Assessment Noted Time PHQ-9 Depression Total Score: 4 02/23/20 1:20 PM EDT documented as of this encounter Care Teams Mixer And Blender Relationship Specialty Start Date End Date Phyllis Silva MD [address] [place] [address] PCP - General Family Medicine 08/16/18 Valentín Moreno PharmD [address] [place] [address] Pharmacist Internal Medicine 05/25/23 documented as of this encounter
== END 2025-01-02 11:47 | disposition home or self-care (01) ==
LOC: HO.HHCX 11:46
PROVIDERS: Visit Provider Family Medicine
DX: M79.671 Pain in right foot (principal)
CPT/HCPCS: 73630

== ENCOUNTER → 2025-01-02 11:47 | Outpatient (BNV) | payer MEDICARE, MEDICAID, SELFPAY | PROVIDERS: Visit Provider Radiology Diagnostic Radiology | DX: M77.31 Calcaneal spur, right foot (principal) | CPT/HCPCS: 73630 ==

== ENCOUNTER 2025-03-14 12:39 | Outpatient (REF) | payer MEDICARE, MEDICAID, SELFPAY ==
--- OUTSIDE RECORDS SUMMARY | 2025-03-14 13:13 | XMS_ITS | Encounter Summary ---
Author Organization [employer] Address [address] [facility] 7t [place] [address] Care Team Providers Care Incident Response Manager Name Role Phone Phyllis Silva MD Primary Care Provider [phone] Valentín Moreno PharmD Unavailable Encounter Details Date Type Department Care Team (Late st Contact Info) Description 08/21/2022 Orders Only [facility] [address] [place] [phone] Lacie Miles, RN [address] [place] [address] Social History Tobacco Use Types Packs/Day Years [...] Care Team (Late st Contact Info) Description 03/21/2025 2:00 PM EDT Medication Management [facility] [address] [place] [address] Valentín Moreno, PharmD [address] [place] [address] 04/02/2025 1:00 PM EDT Office Visit [facility] [address] [facility] [place] [address] Phyllis Silva MD [address] [facility] [place] [address] documented as of this encounter Procedures Procedure [...] 11:04 AM EST) Hemoglobin A1c 8.3 % [facility] Comment:Hemoglobin A1C Refer ence Range Adults: 4.8 - 6.0 % Non diabetic: < 6.0 % Goal: < 7.0 %Additional Action Suggested: > 8.0 %Note: Hemoglobin A1c results are invalid for patients with abnormal amounts of HbF. Blood transfusions may impact the HbA1c concentration in the patient sample. Estimated Average Glucose 192 mg/dL [facility] Comment:eAG = Estimated ave rage glucose which is %A1C expressed asaverage glucose, using the formula of the [id number] Glucose study (ADAG), Diabetes Care, Vol.31,#8,Mar. 2007 09/22/2022 11:0 4 AM EST 09/22/2022 11:04 AM EST [facility] External Provider LAB BLO OD ORDERABLES Final Result Performing Organization Address City/[facility]/ZIP Co de Phone Number [facility] [address] [place] [phone] * TSH W/Reflex to FT4 (09/22/2022 11:04 AM EST) TSH reflex Free T4 2.16 0.32 - 4.0 uIU/mL [facility] 09/22/2022 11:0 4 AM EST 09/22/2022 11:04 AM EST [facility] External Provider LAB BLO OD ORDERABLES Final Result Performing Organization Address [facility] Co de Phone Number [facility] [address] [place] [phone] * Lipid Panel, Standard (09/22/2022 11:04 AM EST) Triglycerides 167 mg/dL [facility] Comment:Desirable Triglyceri de: less than 150 mg/dLBorderline High Triglyceride 150-199 mg/dLHigh Triglyceride: 200-499 mg/dLVery High Triglyceride: greater than or equal to 5OO mg/dL Cholesterol 229 mg/dL [facility] Comment:Desirable Cholestero l: less than 200 mg/dLBorderline High Cholesterol: 200-239 mg/dLHigh Cholesterol: greater than 239 mg/dL LDL Cholesterol Calculated 152 mg/dl [facility] Comment:Desirable LDL: less than 100 mg/dLNear Optimal/Above Optimal LDL: 110- 129 mg/dLBorderline High LDL: 130-159 mg/dLHigh LDL: 160-189 mg/dLVery High LDL: greater than or equal to 190 mg/dL HDL Cholesterol 44 mg/dL [facility] Comment:Desirable HDL: great er than 40 mg/dL Note: This HDL assay may give artificially low results in patients with liver disease. 09/22/2022 11:0 4 AM EST 09/22/2022 11:04 AM EST [facility] External Provider LAB BLO OD ORDERABLES Final Result [facility] [address] [place] [address] [phone] * (ABNORMAL) Comprehensive Metabolic Panel (09/22/2022 11:04 AM EST) Sodium 139 135 - 145 mmol/L [facility] Potassium 4.8 3.3 - 5.1 mmol/L [facility] Chloride 104 96 - 108 mmol/L [facility] Carbon Dioxide 23 22 - 29 mmol/L [facility] Anion Gap 17 12 - 20 [facility] Urea Nitrogen (BUN) 10 9 - 16 mg/dL [facility] Creatinine, Serum 0.76 0.5 - 1.4 mg/dL [facility] Estimated Glomerular Filt Rate >60 [facility] Comment:NOTE: For -Am erican individuals, multiply the result by 1.210.Chronic Kidney Disease: Estimated GFR < 60 mL/min/1.26i4Nlnmqg Kidney Disease: Estimated GFR < 15 mL/min/1.73m2 Glucose 248(H) 60 - 115 mg/dL [facility] Calcium 9.7 8.4 - 10.2 mg/dL [facility] Bilirubin, Total 0.5 0.0 - 1.0 mg/dL [facility] Aspartate Amino Transferase 28 5 - 31 U/L [facility] Alanine Aminotransferase 52(H) 0 - 31 U/L [facility] Total Protein 7.2 6.5 - 8.0 g/dL [facility] Albumin Level 4.6 3.5 - 5.0 g/dL [facility] Alkaline Phosphatase 135(H) 39 - 117 U/L [facility] 09/22/2022 11:0 4 AM EST 09/22/2022 11:04 AM EST [facility] External Provider LAB BLO OD ORDERABLES Final Result [facility] [address] [place], [place] [phone] * CBC auto differential (09/22/2022 11:04 AM EST) White Blood Count 6.2 4.8 - 10.8 X10*3/uL [facility] Red Blood Count 4.90 4.20 - 5.50 X10*6/uL [facility] Hemoglobin 14.2 12.0 - 16.0 g/dl [facility] Hematocrit 41.8 37.0 - 47.0 % [facility] Mean Corpuscular Volume 85.3 80.0 - 98.0 fL [facility] Mean Corpuscular Hemoglobin 29.0 27.0 - 33.0 pg [facility] Mean Corpuscular HGB Conc 34.0 31.0 - 35.0 g/dl [facility] Red Cell Distribution Width 12.0 11.0 - 16.0 % [facility] Platelet Count 231 160 - 400 X10*3/uL [facility] Mean Platelet Volume 11.9 9.4 - 12.3 fL [facility] Neutrophils Percent Auto 53.8 45 - 73 % [facility] Imm Gran Pct Auto 0.3 0.0 - 0.4 % [facility] Lymphocytes Percent Auto 35.2 20 - 40 % [facility] Monocytes Percent Auto 6.6 2 - 11 % [facility] Eosinophils Percent Auto 3.5 0 - 4 % [facility] Basophils Percent Auto 0.6 0 - 2 % [facility] NRBC Pct Auto 0.0 0.0 - 0.2 /100WBC [facility] Neutrophils Absolute Auto 3.3 2.0 - 8.3 x10*3/uL [facility] Imm Gran Abs Auto 0.02 0.00 - 0.03 X10*3/uL [facility] Lymphocytes Absolute Auto 2.2 1.2 - 4.9 X10*3/uL [facility] Monocytes Absolute Auto 0.4 0.1 - 1.2 X10*3/uL [facility] Eosinophils Absolute Auto 0.2 0.0 - 0.4 X10*3/uL [facility] Basophils Absolute Auto 0.0 0.0 - 0.2 X10*3/uL [facility] NRBC Abs Auto 0.000 0.0 - 0.012 X10*3/uL [facility] 09/22/2022 11:0 4 AM EST 09/22/2022 11:04 AM EST us [facility] External Provider LAB BLO OD ORDERABLES Final Result Performing Organization Address City/State/[facility] Co de Phone Number [facility] [address] [place] [phone] * Hematoxylin and Eosin Stain (09/08/2022 10:46 AM EST) 09/08/2022 10:4 6 AM EST 09/08/2022 12:35 PM EST Narrative [facility] - 09/09/2022 12:25 PM EST ----- ------- Name: Lilia Stewart Age/Sex: 47/F : 1975 Unit#: [id number] Attend Dr: Reuben Walls MD Re09/08/22 Status: [facility] Location: [place] Disch: ----- ------- SPEC : [id number] RECD: 09/08/22 STATUS: ROSLYN CARROLL NUM: [id number] RYAN: 09/08/22-[address]: Reuben Walls MD ENTERED: 09/08/22267 SP TYPE: Surgical OTHR DR: Phyllis Silva MD ORDERED: HE Stain/5, Gross Micro L4/2 COMMENTS: Part B: One of the tissue fragments is tiny and may be difficult to identify during processing and may fail to survive processing. Diagnosis A. Colon, cecal polyp: Tubular adenoma; negative for high-grade dysplasia and carcinoma. B. Colon, random right, biopsy: Colonic mucosa with no specific change; no evidence of microscopic colitis. Clinical History Pre-Op Dx: Screening Post-Op Dx: Colonoscopy, snare polypectomy, biopsy, hemorrhoids, diverticulosis Microscopic Description Microscopic sections reviewed. Material Received A: Cecal polyp B: Random biopsy right colon for microscopic colitis Gross Description Received in two parts. Part A: Received in formalin labeled Cecal polyp are five glistening, semitranslucent, soft, winters and winters-pink, irregular tissue fragments, ranging from 0.1 to 0.3 cm. in greatest dimension, which are submitted in toto in a single cassette labeled A. Part B: Received in formalin labeled Random right colon biopsy, microscopic colitis are two glistening, semitranslucent, soft, winters, irregular and rectangular tissue fragments, measuring 0.15 and 0.3 cm. in greatest dimension, which are submitted in toto in a single cassette labeled B. CEDS CONTINUED ON NEXT PAGE ----- ------- Name: Lilia Stewart Age/Sex: 47/F : 1975 Unit#: [id number] Attend Dr: Reuben Walls MD Re09/08/22 [place] [facility] [place] Disch: ----- ------- SPEC : [id number] RECD: 09/08/22-1235 STATUS: ROSLYN CARROLL NUM: [id number] RYAN: 09/08/22-1046 [facility] DR: Reuben Walls MD ENTERED: 09/08/22 SP TYPE: Surgical OTHR DR: Phyllis Sliva MD ORDERED: HE Stain/5, Gross Micro L4/2 COMMENTS: Part B: One of the tissue fragments is tiny and may be difficult to identify during processing and may fail to survive processing. Copies To: Reuben Walls MD [address] [place] [address] [place] [address] Phyllis Silva MD [address] [place] [phone] ----- ------- Signed (signature on file) Mona Avila 09/09/22 1225 ----- ------- END OF REPORT [facility] External Provider LAB BLO OD ORDERABLES Final Result Performing Organization Address City/[facility]/ZIP Co de Phone Number [facility] [address] [place] [address] [phone] * (ABNORMAL) GLUCOSE, WHOLE BLOOD (09/08/2022 9:40 AM EST) Glucose, Whole Blood 198(H) 60 - 115 mg/dL [facility] Comment:METER #: [id number] 09/08/2022 9:40 AM EST 09/08/2022 9:43 AM EST [facility] External Provider LAB BLO OD ORDERABLES Final Result Performing Organization Address [facility] Co de Phone Number [facility] [address] [place] [address] [phone] documented in this encounter Visit Diagnoses Not on filedocumented in this encounter Care Teams Incident Response Manager Relationship Specialty Start Date End Date Phyllis Silva MD [address] [place] [address] PCP - General Family Medicine 08/16/18 Valentín Moreno, JulioD [address] [place] [address] Pharmacist Internal Medicine 05/25/23 documented as of this encounter
== END 2025-03-14 12:40 | disposition home or self-care (01) ==
LOC: HO.MAMMO 12:39
PROVIDERS: PCP Family Medicine; Visit Provider Family Medicine
DX: Z12.31 Encounter for screening mammogram for malignant neoplasm of breast (principal)
CPT/HCPCS: 77063; 77067

== ENCOUNTER → 2025-03-14 13:00 | Outpatient (BNV) | payer MEDICARE, MEDICAID, SELFPAY | PROVIDERS: PCP Family Medicine; Visit Provider Internal Medicine | DX: Z12.31 Encounter for screening mammogram for malignant neoplasm of breast (principal) | CPT/HCPCS: 77063; 77067 ==

== ENCOUNTER 2025-06-07 11:50 | Outpatient (REF) | payer MEDICARE, MEDICAID, SELFPAY ==
[2025-06-07 13:43] LABS: Anion Gap 11 (12-20); Blood Urea Nitrogen 11 mg/dL (9-16); Calcium 9.6 mg/dL (8.4-10.2); Carbon Dioxide 27 mmol/L (22-29); Chloride 108 mmol/L (96-108); Estimated Glomerular Filt Rate > 60; Potassium 4.4 mmol/L (3.3-5.1); Sodium 142 mmol/L (135-145)
--- OUTSIDE RECORDS SUMMARY | 2025-06-07 15:08 | XMS_ITS | Encounter Summary ---
Author Organization [employer] Address [address] [facility] [address] [place] [address] Care Team Providers Care Airplane Inspector Name Role Phone Phyllis Silva MD Primary Care Provider [phone] Valentín Moreno PharmD Unavailable Encounter Details Date Type Department Care Team (Late st Contact Info) Description 08/21/2022 Orders Only [facility] [address] [place] [address] Lacie Miles RN Social History Tobacco Use Types Packs/Day Years [...] Care Team (Late st Contact Info) Description 06/25/2025 1:45 PM EST Office Visit [facility] [address] [place] [address] Phyllis Silva MD [address] [place] [address] 07/03/2025 1:00 PM EST Office Visit [facility] OPTOMETRY [address] [place] [address], [place] [phone] Naye Garcia, OD [address] [place] [address] 07/04/2025 2:00 PM EST Medication Management [facility] [address] [place] [address] Valentín Moreno, PharmD [address] [place] [address] documented as of this encounter Procedures Procedure [...] 11:04 AM EST) Hemoglobin A1c 8.3 % [facility] Comment:Hemoglobin A1C Refer ence Range Adults: 4.8 - 6.0 % Non diabetic: < 6.0 % Goal: < 7.0 %Additional Action Suggested: > 8.0 %Note: Hemoglobin A1c results are invalid for patients with abnormal amounts of HbF. Blood transfusions may impact the HbA1c concentration in the patient sample. Estimated Average Glucose 192 mg/dL [facility] Comment:eAG = Estimated ave rage glucose which is %A1C expressed asaverage glucose, using the formula of the X7B-RhrfizcEdonzqo Glucose study (ADAG), Diabetes Care, Vol.31,#8,2007 09/22/2022 11:0 4 AM EST 09/22/2022 11:04 AM EST [facility] External Provider LAB BLO OD ORDERABLES Final Result Performing Organization Address [facility] Co de Phone Number [facility] [address] [place] [phone] * TSH W/Reflex to FT4 (09/22/2022 11:04 AM EST) TSH reflex Free T4 2.16 0.32 - 4.0 uIU/mL [facility] 09/22/2022 11:0 4 AM EST 09/22/2022 11:04 AM EST [facility] External Provider LAB BLO OD ORDERABLES Final Result Performing Organization Address [facility] Co de Phone Number [facility] [address] [place] [phone] * Lipid Panel, Standard (09/22/2022 11:04 AM EST) Triglycerides 167 mg/dL [facility] Comment:Desirable Triglyceri de: less than 150 mg/dLBorderline High Triglyceride 150-199 mg/dLHigh Triglyceride: 200-499 mg/dLVery High Triglyceride: greater than or equal to 5OO mg/dL Cholesterol 229 mg/dL [facility] Comment:Desirable Cholestero l: less than 200 mg/dLBorderline High Cholesterol: 200-239 mg/dLHigh Cholesterol: greater than 239 mg/dL LDL Cholesterol Calculated 152 mg/dl [facility] Comment:Desirable LDL: less than 100 mg/dLNear Optimal/Above Optimal LDL: 110- 129 mg/dLBorderline High LDL: 130-159 mg/dLHigh LDL: 160-189 mg/dLVery High LDL: greater than or equal to 190 mg/dL HDL Cholesterol 44 mg/dL [facility] Comment:Desirable HDL: great er than 40 mg/dL Note: This HDL assay may give artificially low results in patients with liver disease. 09/22/2022 11:0 4 AM EST 09/22/2022 11:04 AM EST [facility] External Provider LAB BLO OD ORDERABLES Final Result [facility] [address] [place] [address] [phone] * (ABNORMAL) Comprehensive Metabolic Panel (09/22/2022 11:04 AM EST) Sodium 139 135 - 145 mmol/L [facility] Potassium 4.8 3.3 - 5.1 mmol/L [facility] Chloride 104 96 - 108 mmol/L [facility] Carbon Dioxide 23 22 - 29 mmol/L [facility] Anion Gap 17 12 - 20 [facility] Urea Nitrogen (BUN) 10 9 - 16 mg/dL [facility] Creatinine, Serum 0.76 0.5 - 1.4 mg/dL [facility] Estimated Glomerular Filt Rate >60 [facility] Comment:NOTE: For -Am erican individuals, multiply the result by 1.210.Chronic Kidney Disease: Estimated GFR < 60 mL/min/[id number] Kidney Disease: Estimated GFR < 15 mL/min/1.73m2 Glucose 248(H) 60 - 115 mg/dL [facility] Calcium 9.7 8.4 - 10.2 mg/dL [facility] Bilirubin, Total 0.5 0.0 - 1.0 mg/dL [facility] Aspartate Amino Transferase 28 5 - 31 U/L [facility] Alanine Aminotransferase 52(H) 0 - 31 U/L [facility] Total Protein 7.2 6.5 - 8.0 g/dL [facility] Albumin Level 4.6 3.5 - 5.0 g/dL [facility] Alkaline Phosphatase 135(H) 39 - 117 U/L [facility] 09/22/2022 11:0 4 AM EST 09/22/2022 11:04 AM EST [facility] External Provider LAB BLO OD ORDERABLES Final Result [facility] [address] [place] [address] [phone] * CBC auto differential (09/22/2022 11:04 AM EST) White Blood Count 6.2 4.8 - 10.8 X10*3/uL [facility] Red Blood Count 4.90 4.20 - 5.50 X10*6/uL [facility] Hemoglobin 14.2 12.0 - 16.0 g/dl [facility] Hematocrit 41.8 37.0 - 47.0 % [facility] Mean Corpuscular Volume 85.3 80.0 - 98.0 fL [facility] Mean Corpuscular Hemoglobin 29.0 27.0 - 33.0 pg [facility] Mean Corpuscular HGB Conc 34.0 31.0 - 35.0 g/dl [facility] Red Cell Distribution Width 12.0 11.0 - 16.0 % [facility] Platelet Count 231 160 - 400 X10*3/uL [facility] Mean Platelet Volume 11.9 9.4 - 12.3 fL [facility] Neutrophils Percent Auto 53.8 45 - 73 % [facility] Imm Gran Pct Auto 0.3 0.0 - 0.4 % [facility] Lymphocytes Percent Auto 35.2 20 - 40 % [facility] Monocytes Percent Auto 6.6 2 - 11 % [facility] Eosinophils Percent Auto 3.5 0 - 4 % [facility] Basophils Percent Auto 0.6 0 - 2 % [facility] NRBC Pct Auto 0.0 0.0 - 0.2 /100WBC [facility] Neutrophils Absolute Auto 3.3 2.0 - 8.3 x10*3/uL [facility] Imm Gran Abs Auto 0.02 0.00 - 0.03 X10*3/uL [facility] Lymphocytes Absolute Auto 2.2 1.2 - 4.9 X10*3/uL [facility] Monocytes Absolute Auto 0.4 0.1 - 1.2 X10*3/uL [facility] Eosinophils Absolute Auto 0.2 0.0 - 0.4 X10*3/uL [facility] Basophils Absolute Auto 0.0 0.0 - 0.2 X10*3/uL [facility] NRBC Abs Auto 0.000 0.0 - 0.012 X10*3/uL [facility] 09/22/2022 11:0 4 AM EST 09/22/2022 11:04 AM EST [facility] External Provider LAB BLO OD ORDERABLES Final Result Performing Organization Address City/State/[facility] Co de Phone Number [facility] [address] [place] [phone] * Hematoxylin and Eosin Stain (09/08/2022 10:46 AM EST) 09/08/2022 10:4 6 AM EST 09/08/2022 12:35 PM EST Ana [facility] - 09/09/2022 12:25 PM EST ----- ------- Name: Lilia Stewart Age/Sex: 47/F : 1975 Unit#: [id number] Attend Dr: Reuben Walls MD Re09/08/22 Status: [facility] Location: [facility] Disch: ----- ------- SPEC : [id number] RECD: 09/08/22 STATUS: ROSLYN CARROLL NUM: [id number] RYAN: 09/08/22 [facility] [address]: Reuben Walls MD ENTERED: 09/08/22 SP TYPE: Surgical OTHR DR: Phyllis Silva [...] Lilia Stewart Age/Sex: 47/F : 1975 Unit#: [id number] Attend Dr: Reuben Walls MD Re09/08/22 Status: [facility] Location: [facility] Disch: ----- ------- SPEC : [id number] RECD: 09/08/22-1234 STATUS: ROSLYN CARROLL NUM: [id number] RYAN: 09/08/22-1046 [facility] [address]: Reuben Walls MD ENTERED: 09/08/22 SP TYPE: Surgical OTHR DR: Phyllis Silva MD ORDERED: HE Stain/5, Gross Micro L4/2 COMMENTS: Part B: One of the tissue fragments is tiny and may be difficult to identify during processing and may fail to survive processing. Copies To: Reuben Walls MD [address] [place] [address] [place] [address] Phyllis Silva MD [address] [place] [address] [phone] ----- ------- Signed (signature on file) Mona Avila 09/09/22 1225 ----- ------- END OF REPORT [facility] External Provider LAB BLO OD ORDERABLES Final Result Performing Organization Address [facility] Co de Phone Number [facility] [address] [place] [address] [phone] * (ABNORMAL) GLUCOSE, WHOLE BLOOD (09/08/2022 9:40 AM EST) Glucose, Whole Blood 198(H) 60 - 115 mg/dL [facility] Comment:METER #: [id number] 09/08/2022 9:40 AM EST 09/08/2022 9:43 AM EST [facility] External Provider LAB BLO OD ORDERABLES Final Result Performing Organization Address [facility] de Phone Number [facility] [address] [place] [address] [phone] documented in this encounter Visit Diagnoses Not on filedocumented in this encounter Care Teams Airplane Inspector Relationship Specialty Start Date End Date Phyllis Silva MD [address] [place] [address] PCP - General Family Medicine 08/16/18 Valentín Moreno, PharmD [address] [place] [address] Pharmacist Internal Medicine 05/25/23 documented as of this encounter
--- OUTSIDE RECORDS SUMMARY | 2025-06-07 15:08 | XMS_ITS | Encounter Summary ---
Author Organization [employer] Address [address] [facility] [address] [place] [address] Care Team Providers Care Speed Belt Sander Name Role Phone Phyllis Silva MD Primary Care Provider [phone] Valentín Moreno PharmD Unavailable [phone] Encounter Details Date Type Department Care Team (Late st Contact Info) Description 10/06/2022 Orders Only [facility] [address] [place] [address] Lani Silver LPN Social History Tobacco Use [...] Department Care Team (Late Contact Info) Description 06/25/2025 1:45 PM EST Office Visit [facility] MEDIC[facility] [address] [place] [address] [phone] Phyllis Silva MD [address] [place] [address] [phone] 07/03/2025 1:00 PM EST Office Visit [facility] OPTOMETRY [address] [place], [place] [phone] Naye Garcia, OD [address] [place] [address] 07/04/2025 2:00 PM EST Medication Management [facility] [address] [place] [address] Valentín Moreno, PharmAmber [address] [place] [address] documented as of this encounter Visit Diagnoses Not on filedocumented in this encounter Care Teams Speed Belt Sander Relationship Specialty Start Date End Date Phyllis Silva MD [address] [place] [phone] PCP - General Family Medicine 08/16/18 Valentín Moreno, PharmD [address] [place] [address] [phone] Pharmacist Internal Medicine 05/25/23 documented as of this encounter
--- OUTSIDE RECORDS SUMMARY | 2025-06-07 15:08 | XMS_ITS | Clinical Summary ---
Author Organization [employer] Address [address] [facility] [address] [place] [address] Care Team Providers Care Chef Name Role Phone Phyllis Silva MD Primary Care Provider [phone] Valentín Moreno PharmD Unavailable [phone] Allergies No known active allergies Medications * [...] OF BREATH 18 g 1 024 Active clobetasol (Temovate) 0.05 % cream APPLY TO THE AFFECTED AREA(S) AT BEDTIME POR 6 WEEKS DESPUES DE LA APLICACION INICIAL POR 6 SEMANAS CONTINUE USANDO PARA TERAPIA DE MANTENIMIENTO 2-3 VECES POR SEMANA 45 g 3 024 Active atorvastatin (Lipitor) 10 MG tabletIndicatio ns:Type 2 diabetes mellitus without complication, without long-term current use of insulin (HCC) TAKE 1 TABLET BY MOUTH EVERY DAY 90 tablet 1 025 Active hydrOXYzine pamoate (Vistaril) 25 MG capsuleIndicati ons:Anxiety TAKE 1 TO 2 CAPSULES BY MOUTH EVERY 6 HOURS NEEDED FOR ANXIETY 60 capsule 025 Active amLODIPine (Norvasc) 5 MG tabletIndicatio ns:Hypertension , unspecified type Take 1 tablet by mouth daily 90 tablet 1 025 Active losartan (Cozaar) 50 MG tabletIndicatio ns:Type 2 diabetes mellitus without complication, without long-term current use of insulin (HCC) Take 1 tablet (50 mg) by mouth Once per day. 90 tablet 3 025 Active Alcohol Swabs (Alcohol Prep) padsIndications :Type 2 diabetes mellitus without complication, without long-term current use of insulin (HCC) Use to test blood sugar daily as directed. 100 each 025 Active FreeStyle lancetsIndicati ons:Type 2 diabetes mellitus without complication, without long-term current use of insulin ([facility]) 1 each by Other route Once per day. 100 each 025 Active glucose blood (FREESTYLE LITE) test stripIndication s:Type 2 diabetes mellitus without complication, without long-term current use of insulin (HCC) Use to check blood sugar daily as directed. 100 each 025 Active FLUoxetine (PROzac) 20 MG capsule Take 3 capsule by mouth every day in the morning 270 capsule 025 Active omeprazole (PriLOSEC) [address] capsule TAKE 1 CAPSULE BY MOUTH TWICE DAILY BEFORE BREAKFAST AND BEFORE SUPPER DO NOT BREAK, CRUSH, DISSOLVE OR CHEW 180 capsule 025 Active D3-1000 25 MCG (1000 UT) capsuleIndicati ons:Vitamin deficiency TAKE 1 CAPSULE BY MOUTH EVERY DAY 90 capsule 025 Active cyanocobalamin (Vitamin B-12) 1000 MCG tablet TAKE 1 TABLET BY MOUTH EVERY DAY 90 tablet 025 Active cetirizine (ZyrTEC) 10 MG tablet Take 1 tablet (10 mg) by mouth Once per day. 90 tablet 3 025 Active senna-docusate sodium (Senokot-S) 8.6-50 MG tablet Take 1 or 2 tablets by mouth once a day as needed for constipation 180 tablet 1 025 Active traZODone (Desyrel) 100 MG tabletIndicatio ns:Difficulty sleeping TAKE 1 TABLET BY MOUTH EVERY EVENING 30 tablet 11 025 Active metFORMIN XR (Glucophage-XR) 500 MG 24 hr tablet TAKE 2 TABLETS BY MOUTH TWICE DAILY IN THE MORNING AND EVENING 120 tablet 11 025 Active cromolyn (Opticrom) 4 % ophthalmic solution PLACE 1 DROP IN EACH EYE FOUR TIMES DAILY 10 mL 3 025 Active Trulicity 1.5 MG/0.5ML solution auto-injectorIn dications:Type 2 diabetes mellitus without complication, without long-term current use of insulin ([facility]) INJECT ONE PEN (=1.5MG) SUBCUTANEOUSLY ONCE A WEEK DIRECTED 2 mL 5 Active lisinopril 30 MG tabletIndicatio ns:Essential hypertension Take 1 tablet (30 mg) by mouth in the morning. 30 tablet 11 023 2023 Discontinued Trulicity 1.5 MG/0.5ML solution auto-injectorIn dications:Type 2 diabetes mellitus without complication, without long-term current use of insulin ([facility]) INJECT ONE PEN (=1.5MG) SUBCUTANEOUSLY ONCE A WEEK DIRECTED 2 mL 5 025 2024 Discontinued cromolyn (Opticrom) 4 % ophthalmic solution Administer 1 drop into both eyes 4 times daily. 10 mL 3 025 2024 Discontinued Active Problems Problem Noted Date Diagnosed Date Allergic rhinitis 04/06/2025 Assessment & Plan (04/06/2025 4:33 PM EDT): - continue cetirizine ELOY (generalized anxiety disorder) 04/02/2025 Severe episode of recurrent major depressive disorder, without psychotic features ([facility]/HCC) 04/02/2025 Assessment & Plan (04/04/2025 9:39 AM EDT): During IBH Consult Lilia presenting with depressed mood, Tearful, crying spells , hopelessness, irritable mood, loss of interests/pleasure , sense of isolation/loneliness , isolating, change in appetite or weight reduce appetite, changes in sleep difficulty falling asleep and difficulty staying asleep , fatigue/loss of energy, inappropriate/excessive guilt , difficulty concentrating and excessive worry/anxiety, difficulty controlling worry, anxiety/worry associated to restlessness and/or feeling keyed-up/On edge , easily fatigued , difficulty concentrating and/or mind going blank , irritability, muscle tension , and sleep disturbance difficulty falling asleep, Fear , and sense of dread ; for a period of 6-12 mo, for most or all symptoms in the context of family issues and illness or family illness. Pt described sxs as baseline. She was able to identified triggers associated with her presentation of sxs. Currently, her PCP is managing her medication. Lilia has different medical conditions that can also exacerbate sxs. She was open to practice exercises during session to decrease sxs. Lichen sclerosus 09/05/2023 Assessment & Plan (01/02/2025 [...] adenoma Urinary incontinence 09/05/2023 Assessment & Plan (01/08/2025 1:40 PM EDT): - likely mixed, stress and OAB - Discussed about Pelvic floor muscle exercise - script for incontinence supply - recommended to discuss with her [employer] for stress incontinence evaluation and treatment Assessment & Plan (09/05/2023 12:11 PM EST): - likely mixed, stress and OAB - Discussed about Pelvic floor muscle exercise - Will write script for incontinence supply - recommended to discuss with her [employer] for stress incontinence evaluation and treatment Chronic idiopathic constipation 02/22/2023 Assessment & Plan (04/06/2025 4:32 PM EDT): Last seen by GI on 09/22/22. -continue Fiber-rich diet -Colonoscopy on 09/08/22, Dx Tubular Adenoma. Recommended repeat in 3yrs. -Continue Senna Assessment & Plan (01/02/2025 9:15 AM EDT): [...] and patient education was provided -seen by web development consultant and was informed that treatment is considered as cosmetic, not medical -patient is not interested in pursuing aesthetic surgery Assessment & Plan (09/05/2023 11:49 AM EST): -seen by optmetrist and patient education was provided -seen by web development consultant and was informed that treatment is considered [...] (09/05/2023 12:09 PM EST): - Followed by [employer] [facility] - PAP in January 2023, NILM with [...] 2 diabetes mellitus 02/17/2023 Assessment & Plan (04/05/2025 10:37 PM EDT): diagnosed in July 2020 -A1C 5.7% on 04/02/25, improved from 6.0% on 01/02/25 -continue metformin ER 1g twice daily, lik -continue working on lifestyle modifications -Comprehensive / dilated eye exam: 03/02/22 at [facility], no diabetic retinopathy -Comprehensive foot exam: 01/02/25 -Last microalbumin test: 11/17/24 UACR 11.2 -Last lipid profile: 11/17/24 TC 144; TG 123; HDL 46; LDL 74 -Last dental exam: -follow up in 3 mo or sooner prn Assessment & Plan (01/04/2025 2:59 AM EDT): diagnosed in July 2020 -A1C 6.0% on 01/02/25, slight increase from 5.9% on 02/22/24. -continue metformin ER 1g twice daily, lik -continue working on lifestyle modifications -Comprehensive / dilated eye exam: 03/02/22 at [facility], no diabetic retinopathy -Comprehensive foot exam: 01/02/25 -Last microalbumin test: 11/17/24 UACR 11.2 -Last lipid profile: 11/17/24 TC 144; TG 123; HDL 46; LDL 74 -Last dental exam: -follow up in 3 mo or sooner prn Assessment & Plan (02/22/2024 3:00 PM EDT): diagnosed in July 2020 -A1C 5.9% on 02/22/24. -continue metformin ER 1g twice daily, lik -continue working on lifestyle modifications -Comprehensive / dilated eye exam: 03/02/22 at [facility], no diabetic retinopathy -Comprehensive foot exam: 08/04/21 -Last microalbumin test: 02/24/23 UACR 9.2 -Last lipid profile: 08/25/23 -Last dental exam: -follow up in 3 mo or sooner prn Assessment & Plan (11/30/2023 5:01 PM EDT): diagnosed in July 2020 -A1C 5.7% on 11/30/23. -continue metformin ER 1g twice daily, lik -continue working on lifestyle modifications -Comprehensive / dilated eye exam: 03/02/22 at [facility], no diabetic retinopathy -Comprehensive foot exam: 08/04/21 -Last microalbumin test: 02/24/23 UACR 9.2 -Last lipid profile: 08/25/23 -Last dental exam: -follow up in 3 mo or sooner prn Assessment & Plan (09/05/2023 11:56 AM EST): diagnosed in July 2020 -A1C 6.7% on 06/30/23. -continue metformin ER 1g twice daily, lik -continue working on lifestyle modifications -Comprehensive / dilated eye exam: 03/02/22 at [facility], no diabetic retinopathy -Comprehensive foot exam: [...] -Comprehensive / dilated eye exam: 03/02/22 at [facility], no diabetic retinopathy -Comprehensive foot exam: 08/04/21 -Last microalbumin test: 12/13/20 UACR 28 -Last lipid profile: 08/06/20 -Last dental exam: Immunizations: Reviewed, updating Aspirin use: No strong indication at this time PHQ: Hx depression Dyslipidemia 08/26/2017 Assessment & Plan (04/02/2025 6:08 AM EDT): -Last lipid profile: 11/17/24 TC 144; TG 123; HDL 46; LDL 74 -Xanthelasma -Current medication: atorvastatin 10 mg qhs -Continue working on lifestyle modifications. Assessment & Plan (01/04/2025 2:59 AM EDT): -Last lipid profile: 11/17/24 TC 144; TG 123; HDL 46; LDL 74 -Xanthelasma -Current medication: atorvastatin 10 mg qhs [...] mg prn Hypertension 05/04/2012 Assessment & Plan (04/02/2025 6:08 AM EDT): Goal BP< 130/80 per ACC/AHA. BP not at goal today. -Continue monitoring home BP. -Continue working on life style modifications. -Continue amlodipine 5 mg nightly. -Continue losartan 50 mg daily for renal protection. [...] stress test was favorable for no ischemia. Assessment & Plan (01/02/2025 11:27 AM EDT): [...] 05/04/2012 Depressive disorder 03/08/2012 Assessment & Plan (04/06/2025 4:36 PM EDT): - PHQ-9 score 23; ELOY-7 score 21 on 04/02/2025 -Continue fluoxetine 60 mg daily. -Continue trazodone 100 mg qhs -Continue hydroxyzine prn -Consider changing fluoxetine to citalopram or escitalopram. Or adding bupropion. - Seen by integrated behavioral health service clinician today; will arrange a long-term behavioral health service Assessment & Plan (01/08/2025 1:39 PM EDT): -Continue fluoxetine 40 mg daily. Consider increasing to 60 mg daily. -Continue trazodone 100 mg qhs -Continue hydroxyzine prn -Consider changing fluoxetine to citalopram or escitalopram. Or adding bupropion. -pt was able to contract her safety today Assessment & Plan (02/22/2024 4:36 PM EDT): [...] today -pt agreed to be referred to [facility] Resolved Problems Problem Noted Date Diagnosed Date Resolved Date Abnormal liver function test 11/30/2023 01/08/2025 Assessment & Plan (01/02/2025 9:14 AM EDT): Evaluate US Assessment & Plan (11/30/2023 5:01 PM EDT): Evaluate US Chronic cough 08/31/2023 02/21/2024 Assessment & Plan (11/28/2023 6:07 PM EDT): - since Apr 2023 - DDx allergic rhinitis; asthma; post-COVID; ILD - Following with [facility], last seen by Dr. Parmar in [...] rhinitis; asthma; post-COVID; ILD - Following with [facility] pulmon[facility]; upcoming appointment for PFT and RAST - Discontinued lisinopril, but cough did not improve - continue current treatment per abstract manager Lichen sclerosus of vulva 02/22/2023 Encounters * This document contains information received from the source organization and may not represent a complete record from that organization. Date Type Department Care Team Description 06/07/2025 Orders Only [facility] [place] [address] Phyllis Silva MD 05/29/2025 Refill [facility] [place] [address] Valentín Moreno, PharmD Type 2 diabetes mellitus without complication, without long-term current use of insulin ([facility]) 05/11/2025 Refill [facility] [place] [address] Phyllis Patiño MD 05/01/2025 Travel 04/24/2025 Orders Only [facility] [place] [address] Phyllis Silva MD Hypertension, unspecified type (Primary Dx); Type 2 diabetes mellitus without complication, without long-term current use of insulin ([facility]/HCC) 04/24/2025 Telephone [facility] [place] [address] Phyllis Patiño MD 04/23/2025 Refill [facility] [place] [address] Phyllis Patiño MD 04/13/2025 Refill [facility] [address] Phyllis Silva MD Difficulty sleeping 04/02/2025 1:00 PM EDT Office Visit [facility] [place] [address] Phyllis Silva MD Hypertension, unspecified type (Primary Dx); Dyslipidemia; Type 2 diabetes mellitus without complication, without long-term current use of insulin ([facility]); Depressive disorder; Chronic idiopathic constipation; Allergic rhinitis, unspecified seasonality, unspecified trigger 04/02/2025 Travel 04/01/2025 Travel 03/30/2025 Telephone [facility] [place] [address] Phyllis Silva MD chart prep 03/21/2025 Travel 03/14/2025 Orders Only [facility] [address] [place] [address] Phyllis Silva MD 03/14/2025 Travel from Last 3 Months Immunizations Immunization Administration [...] Answer Date Recorded Patient Health Questionnaire-9 Score 23 04/02/2025 Patient Health Questionnaire-9 Score 23 04/02/2025 Last PHQ-9: Questionnaire Data Not on file 0 04/02/2025 Housing Stability Answer Date Recorded What is [...] Date Recorded Patient Health Questionnaire-2 Score 6 04/02/2025 Internet Access Answer Date Recorded Internet Access Q1 Yes 01/02/2025 Internet Access Q2 Not on file 01/02/2025 Comments Unknown Intention Date Recorded No desire to become (finding) 0 04/02/2025 Sex and Gender Information Value Date Recorded Sex Assigned at Female 06/15/2022 10:14 AM EDT Legal Sex Female 10:14 AM EDT Gender Identity Female 06/15/2022 10:14 AM EDT Sexual Orientation Straight 06/15/2022 10 :14 AM EDT Last Filed Vital Signs Vital Sign Reading Time Taken Comments Blood Pressure 124/90 04/02/2025 1:07 PM EDT Pulse 68 04/02/2025 1:07 PM EDT Temperature 36.1 C (96.9 F) 04/02/2025 1:07 PM EDT Respiratory Rate 17 04/02/2025 1:07 PM EDT Oxygen Saturation 99% 04/02/2025 1:07 PM EDT Inhaled Oxygen Concentration - - Weight 75.3 kg (166 lb) 04/02/2025 1:07 PM EDT Height 162.6 cm (5' 4 ) 04/02/2025 1:07 PM EDT Body Mass Index 28.49 04/02/2025 1:07 PM EDT Plan of Treatment Upcoming Encounters Date Type Department Care Team (Late st Contact Info) Description 06/25/2025 1:45 PM EST Office Visit [facility] [address] [place] [address] Phyllis Silva MD [address] [place] [address] 07/03/2025 1:00 PM EST Office Visit [facility] OPTOMET[facility] [address] [place] [address] Naye Garcia, OD [address] [place] [address] 07/04/2025 2:00 PM EST Medication Management [facility] [address] [place] [address] Valentín Moreno, PharmD [address] [place] [address] Health Maintenance Due Date Last Done Comments CT Colonography 1973 FIT DNA/Cologuard 1975 FIT 1973 FOBT 1975 Sigmoidoscopy 1975 Influenza Vaccine (#1) 2025 4, 05/21/2023, 05/27/2021, Additional history exists Diabetes: Hemoglobin A1C 07/03/2025 025, 01/02/2025, 08/14/2024, Additional history exists Depression Monitoring 10/03/2025 04/02/2025, 025 Diabetes: Urine Protein Screening 11/17/2025 11/17/2024, 02/24/2023, 08/13/2021, Additional history exists Lipid Panel 11/17/2025 11/17/2024, 08/16, 02/24/2023, Additional history exists Alcohol/Substance Use Screening 01/02/2026 01/02/2025 Diabetes: Foot Exam 01/02/2026 01/02/2025, 01/02/2025, 01/02/2025, Additional history exists SDOH Screening 01/02/2026 01/02/2025 Disability Screening 01/19/2026 01/19/2025 Family Planning (PISQ) 04/06/2026 04/06/2025 Tobacco Screening 04/06/2026 04/06/2025 Eye Exam 06/14/2026 06/14/2024, 05/18, 06/14/2024, Additional history exists Mammogram 03/14/2027 03/14/2025, 02/13, 02/19/2023 Colonoscopy 09/08/2027 09/08/2022 Colorectal Cancer Screening 09/08/2027 [...] Completed 06/08/2024, 04/2024, 10/26/2022, Additional history exists HIB Vaccines Aged Out [...] Author Blood Pressure < 140/90 Blood Pressure 124/90(2024 1:07 PM EDT) No Valentín Moreno PharmD Hemoglobin A1c < 7 Result Component 5.7( 1:08 PM EDT) No Valentín Moreno PharmD Procedures Procedure Name Priority Date/Time Associated Diagnosis Comments BASIC METABOLIC PANEL Routine 06/07/2025 11:56 AM EDT POCT GLYCOSYLATED HEMOGLOBIN (HGB A1C) Routine 04/02/2025 1:08 PM EDT Type 2 diabetes mellitus without complication, without long-term current use of insulin ([facility]) POCT GLUCOSE Routine 04/02/2025 1:07 PM EDT Type 2 diabetes mellitus without complication, without long-term current use of insulin (CMS/HCC) BI MAMMOGRAM SCREEN W ILYA W IMPLANTS LEWIS Routine 03/14/2025 12:45 PM EDT ALBUMIN, RANDOM URINE W/CREATININE Routine 11/17/2024 9:57 AM EDT LIPID PANEL, STANDARD Routine 11/17/2024 9:57 AM EDT PAP SMEAR Routine 02/03/2023 1:29 PM EDT HM COLONOSCOPY Routine 09/08/2022 Z[facility] HISTORICAL HEPATITIS C AB W/REFL TO HCV RNA, QN, PCR Routine 12/13/2020 1:18 PM EDT HIV 1/2 ANTIGEN/ANTIBODY, FOURTH GENERATION W/RFL Routine 12/13/2020 1:18 PM EDT ZZZ HISTORICAL HPV MRNA E6/E7 Routine 05/19/2016 1:45 PM EDT from Last 3 Months or Most Recently Relevant to Health Maintenance Results * (ABNORMAL) Basic Metabolic Panel (06/07/2025 11:56 AM EDT) Sodium 142 135 - 145 mmol/L [facility] Potassium 4.4 3.3 - 5.1 mmol/L [facility] Chloride 108 96 - 108 mmol/L [facility] Carbon Dioxide 27 22 - 29 mmol/L [facility] Anion Gap 11(L) 12 - 20 [facility] Urea Nitrogen (BUN) 11 9 - 16 mg/dL [facility] Creatinine, Serum 0.68 0.5 - 1.4 mg/dL [facility] Estimated Glomerular Filt Rate >60 [facility] Comment:Chronic Kidney Disea se: Estimated GFR < 60 mL/min/1.83o9Kcgftd Kidney Disease: Estimated GFR < 15 mL/min/1.73m2 Glucose 134(H) 60 - 115 mg/dL [facility] Calcium 9.6 8.4 - 10.2 mg/dL [facility] 06/07/2025 11:5 6 AM EDT 06/07/2025 12:59 PM EDT Phyllis Silva MD LAB BLOOD ORDERABLES Final Resul t [facility] [address] [place] [phone] * POCT glycosylated hemoglobin (Hgb A1c) (04/02/2025 1:08 PM EDT) Hemoglobin A1C 5.7 4.0 - 5.7 % QC Media Lot # [id number] Lot# Expiration Date ,[id number] Blood Capillary blood specimen / Unknown 04/02/2025 1:08 PM EDT Phyllis Silva MD POINT OF CARE TEST ENTER/EDIT OR DERABLES Final Result * POCT glucose manually resulted (04/02/2025 1:07 PM EDT) Glucose Blood, POC 108 60 - 200 mg/dL [employer] Lot # [id number] Lot# Expiration Date ,[id number] Blood Capillary blood specimen / Unknown 04/02/2025 1:07 PM EDT Phyllis Silva MD POINT OF CARE TEST ENTER/EDIT OR DERABLES Final Result * BI Mammogram Screen w/ Ilya w/ Implants Lewis (03/14/2025 12:45 PM EDT) Anatomical Region Laterality Modality Mammography 03/14/2025 12:4 5 PM EDT Narrative 03/26/2025 8:39 AM EDT [facility] [address] [place] [address] Mammography Report Signed Patient: Lilia Stewart MR#: [id number] 9 : 1975 Acct:[id number] Age/Sex: 50 / F ADM Date: 03/14/25 Loc: [facility] Attending Dr: Phyllis Silva MD Ordering Physician: Phyllis Silva MD Results: 1Negative Date of Service: 03/14/25 Follow Up: 1 Year From Orig ina Mammogram Procedure(s): MM tomosynthesis screen imp Accession Number(s): [id number] cc: Phyllis Silva MD EXAMINATION: MM SCREENING DIGITAL BREAST TOMOSYNTHESIS, BILATERAL CLINICAL INFORMATION: Screening. Asymptomatic. COMPARISON: Mammography: Comparison is made with relevant avialable priors. TECHNIQUE: Digital mammography is performed in craniocaudal and mediolateral oblique views along with computer-aided detection (CAD). Digital breast tomosynthesis is performed in implant-displaced craniocaudal and implant-displaced mediolateral oblique views along with computer-aided detection (CAD). FINDINGS: The breasts are almost entirely fatty (ACR BI-RADS breast composition Category a). There are no significant masses, abnormal calcifications, or other abnormalities. MM/MM tomosynthesis screen imp BI IMPRESSION: There are no significant changes from prior study. ASSESSMENT: BI-RADS BI-RADS 1 - Negative RECOMMENDATION: Routine annual mammography screening. 1 year F/U This patient's information was entered into a reminder system with a target due date for their next mammogram. Electronically signed by: Fatou Ma DO 03/26/2025 08:36 AM EDT Dictated By: Fatou Ma DO Signed By: <Electronically signed by Fatou Ma DO in OV> 03/26/25 0836 DD/ 1245 TD/TT: 03/14/25 1300 Chef De Partie: Procedure Note Donotuseinterpreter, Image - 03/26/2025 [facility] [address] [place] [address] Mammography Report Signed Patient: Marvin Stewart#: [id number] 9 : 1975Acct:[id number] Age/Sex: 50 / FADM Date: 03/14/25 Loc: [facility] Attending Dr: Phyllis Silva MD Ordering Physician: Phyllis Silva MDResults: 1Negative Date of Service: 03/14/25Follow Up: 1 Year From Orig ina Mammogram Procedure(s): MM tomosynthesis screen imp BI Accession Number(s): [id number] cc: Phyllis Silva MD EXAMINATION: MM SCREENING DIGITAL BREAST TOMOSYNTHESIS, BILATERAL CLINICAL INFORMATION: Screening. Asymptomatic. COMPARISON: Mammography: Comparison is made with relevant avialable priors. TECHNIQUE: Digital mammography is performed in craniocaudal and mediolateral oblique views along with computer-aided detection (CAD). Digital breast tomosynthesis is performed in implant-displaced craniocaudal and implant-displaced mediolateral oblique views along with computer-aided detection (CAD). FINDINGS: The breasts are almost entirely fatty (ACR BI-RADS breast composition Category a). There are no significant masses, abnormal calcifications, or other abnormalities. MM/MM tomosynthesis screen imp BI IMPRESSION: There are no significant changes from prior study. ASSESSMENT: BI-RADS BI-RADS 1 - Negative RECOMMENDATION: Routine annual mammography screening. 1 year F/U This patient's information was entered into a reminder system with a target due date for their next mammogram. Electronically signed by: Fatou Ma DO 03/26/2025 08:36 AM EDT RP Dictated By: Fatou Ma DO Signed By: <Electronically signed by Fatou Ma DO in OV> 03/26/25 0836 DD/ 1245 TD/TT: 03/14/25 1300 Chef De Partie: us Phyllis Silva MD IMG BI PROCEDURES Final Result * Albumin, Random Urine W/Creatinine (11/17/2024 9:57 AM EDT) Creatinine, Urine 266.67 mg/dL [facility] Microalbumin Urine 30.0 mg/L [facility] Microalbum Creatinine Ratio Ur 11.2 <30 ug/mg cr [facility] Comment:Albumin/Creatinine R atio Reference Ranges: Normal: < 30 ug/mg creatinine Microalbuminuria: 30 - 300 ug/mg creatinineClinical Albuminuria: > 300 ug/mg creatinine 11/17/2024 9:57 AM EDT 11/17/2024 10:56 AM EDT us Phyllis Silva MD LAB URINE ORDERABLES Final Resul t [facility] [address] [place], [place] [id number] [phone] * Lipid Panel, Standard (11/17/2024 9:57 AM EDT) Triglycerides 123 <150 mg/dL [facility] Comment:Desirable Triglyceri de: less than 150 mg/dLBorderline High Triglyceride 150-199 mg/dLHigh Triglyceride: 200-499 mg/dLVery High Triglyceride: greater than or equal to 5OO mg/dL Cholesterol 144 <200 mg/dL [facility] Comment:Desirable Cholestero l: less than 200 mg/dLBorderline High Cholesterol: 200-239 mg/dLHigh Cholesterol: greater than 239 mg/dL LDL Cholesterol Calculated 74 <100 mg/dL [facility] Comment:Desirable LDL: less than 100 mg/dLNear Optimal/Above Optimal LDL: 110- 129 mg/dLBorderline High LDL: 130-159 mg/dLHigh LDL: 160-189 mg/dLVery High LDL: greater than or equal to 190 mg/dL HDL Cholesterol 46 >40 mg/dL [facility] Comment:Desirable HDL: great er than 40 mg/dL Note: This HDL assay may give artificially low results in patients with liver disease. 11/17/2024 9:57 AM EDT 11/17/2024 11:18 AM EDT us Phyllis Silva MD LAB BLOOD ORDERABLES Final Resul t [facility] [address] [place] [phone] * Pap Smear (02/03/2023 1:29 PM EDT) 02/03/2023 1:29 PM EDT 02/04/2023 8:20 AM EDT Narrative [facility] - 02/25/2023 12:56 PM EDT ----- ------- Name: Lilia Stewart Age/Sex: 48/F : 1975 Unit#: [id number] Attend Dr: Candido Deleon MD Re02/03/23 Status: DEP REF Location: [facility] Disch: ----- ------- SPEC : [id number] RECD: 02/04/23 STATUS: ROSLYN CARROLL NUM: [id number] RYAN: 02/03/[address] [facility] [address]: Candido Deleon MD ENTERED: 02/04/23 SP TYPE: Pap Smr OTHR DR: Phyllis Silva MD ORDERED: Pap Smear Interpretation Satisfactory for evaluation. Negative for intraepithelial lesion or malignancy. HPV mRNA E6/E7: NOT DETECTED This assay detects E6/E7 viral messenger RNA (mRNA) from 14 high-risk HPV types (16, 18, 31, 33, 35, 39, 45, 51, 52, 56, 58, 59, 66, 68) HPV testing performed by [facility], [place], [place]. See reference laboratory pion of the EMR for entire report. Clinical Information LMP: Postmenopausal Previous PAP test: 08/20/20, Unknown findings Other history: Postmenopausal bleeding Material Received ThinPrep-Cervical Copies To: Phyllis Silva MD [address] [place] [phone] Candido Deleon MD [address] [place], [place] [address]Deb[address] [address] ----- ------- Signed (signature on file) ASHWIN Pierre ([facility]) 02/25/23 1256 ----- ------- END OF REPORT [facility] External Provider LAB CYT OLOGY ORDERABLES Final Result Performing Organization Address City/[facility]/ZIP Co de Phone Number [facility] [address] [place] [address] [phone] * Hm Colonoscopy (09/08/2022) Colonoscopy 1 Historical Provider HEALTH MAINTENANCE Edited Result - Final * HEPATITIS C AB W/REFL TO HCV RNA, QN, PCR (12/13/2020 1:18 PM EDT) [facility] HEPATITIS C ANTIBODY NON-REACT MIQUEL NON-REACT MIQUEL [facility] INDEX 0.01 <1.00 [facility] Comment: HCV antibody was non-reactive. There is no laboratory evidence of HCV infection. In most cases, no further action is required. However, if recent HCV exposure is suspected, a test for HCV RNA (test code 57304) is suggested. For additional information please refer to http://education.[facility]/faq/WWI26m4 (This link is being provided for informational/ educational purposes only.) 12/13/2020 1:18 PM EDT Phyllis Silva MD HISTORICAL/NON ORDERABLE LABS Fi nal Result [facility] [address] * HIV 1/2 ANTIGEN/ANTIBODY,FOURTH GENERATION W/RFL (12/13/2020 1:18 PM EDT) Pathologist [facility] HIV-1/2 ANTIGEN AND ANTIBODIES, 4TH GENERATION W/ REFLEX NON-REACT MIQUEL NON-REACT MIQUEL [facility] Comment: HIV-1 antigen and HIV-1/HIV-2 antibodies were not detected. There is no laboratory evidence of HIV infection. PLEASE NOTE: This information has been disclosed to you from records whose confidentiality may be protected by state law. If your state requires such protection, then the state law prohibits you from making any further disclosure of the information without the specific written consent of the person to whom it pertains, or as otherwise permitted by law. A general authorization for the release of medical or other information is NOT sufficient for this purpose. For additional information please refer to http://[employer] Fairy Tales.[facility]/faq/WRC751 (This link is being provided for informational/ educational purposes only.) The performance of this assay has not been clinically validated in patients less than 2 years old. 12/13/2020 1:18 PM EDT us Phyllis Silva MD LAB BLOOD ORDERABLES Final Resul t [facility] [address] * HPV mRNA E6/E7 (05/19/2016 1:45 PM EDT) HPV mRNA E6/E7 Not Detected NOT DETECTED [facility] Comment: This assay detects E6/E7 viral messenger RNA (mRNA) from 14 high-risk HPV types (16,18,31,33,35,39,45,51, 52,56,58,59,66,68). This test was performed using the APTIMA(R) TMA HPV Assay ([employer] For additional information, please refer to http://education.[facility]/faq/OCX678a4 Test Performed by [facility], [address] [place] [address] Julián Adams M.D., Ph.D., Director of Laboratories , [place] [id number] Please note: Effective 04/27/2016, HPV testing will be performed using [employer]'s APTIMA test which targets mRNA. Detecting mRNA instead of DNA, as in older methods, offers significant improvements in specificity. 05/19/2016 1:45 PM EDT us Phyllis Silva MD HISTORICAL/NON ORDERABLE LABS Fi nal Result [facility] [address] from Last 3 Months or Most Recently Relevant to Health Maintenance Insurance MEDICARE Member Subscriber Plan / Payer (Ef fective 2022-Present) Name:Lilia Stewart I Member ID:[id number] Relation to Subscriber:Self Name:Lilia Stewart I Subscriber ID:[id number] Payer ID:STATE Group ID:Not on file Type:Medicare Address: [facility] [address] [address] [facility] Care Teams Chef Relationship Specialty Start Date End Date Phyllis Silva MD [address] [place], [place] [phone] PCP - General Family Medicine 08/16/18 Valentín Moreno, JulioD [address] [place] [address] Pharmacist Internal Medicine 05/25/23
--- OUTSIDE RECORDS SUMMARY | 2025-06-07 15:08 | XMS_ITS | Encounter Summary ---
Author Organization [employer] Address [address] [facility] 7t [place] [address] Care Team Providers Care Breastfeeding Peer Counselor Name Role Phone Phyllis Silva MD Primary Care Provider [phone] Valentín Moreno PharmD Unavailable Reason for Referral * Consultation (Routine) - Authorized Specialty Diagnoses / Procedures Referred By Contac t Referred To Contact Pharmacy Diagnoses Hypertension, unspecified type Type 2 diabetes mellitus without complication, without long-term current use of insulin (HCC) Phyllis Silva MD [address] [place] [address] Phone: tel: fax: Referral ID Status Reason Start Date Expiration Date Visits Requested Visits Authorized [id number] Authorized Consult and Treat 04/24/2025 04/24/2026 6 6 Encounter Details Date Type Department Care Team (Late st Contact Info) Description 04/24/2025 Orders Only [facility] [address] [place] [address] Phyllis Silva MD [address] [place], [place] [phone] Hypertension, unspecified type (Primary Dx); Type 2 diabetes mellitus without complication, without long-term current use of insulin ([facility]) Social History Tobacco Use Types Packs/Day Years [...] is your housing situation today? I have davidben khan 01/02/[address] you [...] Upcoming Encounters Date Type Department Care Team ([facility] Contact Info) Description 06/25/2025 1:45 PM EST Office Visit [facility] [address] [place] [address] [place] [address] Phyllis Silva MD [address] [place] [address] 07/03/2025 1:00 PM EST Office Visit [facility] OPTOMET[facility] [address] [place] [address] Jose, Naye, OD 230 [place] [address] 07/04/2025 2:00 PM EST Medication Management [facility] [address] [place] [address] Valentín Moreno PharmD [address] [place] [address] Scheduled Referrals Name Type Priority Associated Diagnoses Orde r Schedule Referral to Pharmacy CDTM Outpatient Referral Routine Hypertension, unspecified type Type 2 diabetes mellitus without complication, without long-term current use of insulin ([facility]) Ordered: 04/24/2025 documented as of this encounter Goals Goal Patient Goal Type Associated Problems Recent Progress Patient-Stated? Author Blood Pressure < 140/90 Blood Pressure 124/90(2024 1:07 PM EDT) No Valentín Moreno PharmD Hemoglobin A1c < 7 Result Component 5.7( 1:08 PM EDT) No Valentín Moreno PharmD documented as of this encounter Visit Diagnoses Diagnosis Hypertension, unspecified type- Primary Type 2 diabetes mellitus without complication, without long-term current use of insulin ([facility]) documented in this encounter Additional Health Concerns Assessment Noted Time PHQ-9 Depression Total Score: 23 025 1:38 PM EDT documented as of this encounter Care Teams Breastfeeding Peer Counselor Relationship Specialty Start Date End Date Phyllis Silva MD [address] [place] [address] PCP - General Family Medicine 08/16/18 Valentín Moreno PharmD [address] [place] [address] Pharmacist Internal Medicine 05/25/23 documented as of this encounter
--- OUTSIDE RECORDS SUMMARY | 2025-06-07 15:08 | XMS_ITS | Encounter Summary ---
Author Organization [employer] Address [address] [facility] [address] 7t [place] [address] Care Team Providers Care Camera Storage Clerk Name Role Phone Phyllis Silva MD Primary Care Provider [phone] Valentín Moreno PharmD Unavailable [phone] Encounter Details Date Type Department Care Team (Late st Contact Info) Description 06/07/2025 Orders Only [facility] [address] [place] [address] Phyllis Silva MD [address] [place] [address] Social History Tobacco Use Types Packs/Day Years Used Date Smoking Tobacco: Never Passive Smoke Exposure: Never Smokeless Tobacco: Never Alcohol Answer Date Recorded Frequency of Alcohol Consumption Not on file 02/22/2024 Average Number of Drinks Not on file 024 Frequency of Binge Drinking Not on file 04/2024 Score 0 02/22/2024 Depression Answer Date Recorded Patient Health Questionnaire-9 Score 04/02/2025 Patient Health Questionnaire-9 Score 04/02/2025 Last PHQ-9: Questionnaire Data Not on [...] Description 06/25/2025 1:45 PM EST Office Visit [facility] [address] [place] [address] Phyllis Silva MD [address] [place] [address] 07/03/2025 1:00 PM EST Office Visit [facility] OPTOMET[facility] [address] [place] [address] Naye Garcia, OD 230 [place] [address] 07/04/2025 2:00 PM EST Medication Management [facility] [address] [place] [phone] Valentín Moreno, PharmD [address] [place] [address] documented as of this encounter Goals Goal Patient Goal Type Associated Problems Recent Progress Patient-Stated? Author Blood Pressure < 140/90 Blood Pressure 124/90(2024 1:07 PM EDT) No Valentín Moreno, PharmAmber Hemoglobin A1c < 7 Result Component 5.7( 1:08 PM EDT) No Valentín Moreno PharmD documented as of this encounter Procedures Procedure Name Priority Date/Time Associated Diagnosis Comments BASIC METABOLIC PANEL Routine 06/07/2025 11:56 AM EDT documented in this encounter Results * (ABNORMAL) Basic Metabolic Panel (06/07/2025 11:56 AM EDT) Sodium 142 135 - 145 mmol/L [facility] Potassium 4.4 3.3 - 5.1 mmol/L [facility] Chloride 108 96 - 108 mmol/L [facility] Carbon Dioxide 27 22 - 29 mmol/L [facility] Anion Gap 11(L) 12 - 20 [facility] Urea Nitrogen (BUN) 11 9 - 16 mg/dL [facility] Creatinine, Serum 0.68 0.5 - 1.4 mg/dL [facility] Estimated Glomerular Filt Rate >60 [facility] Comment:Chronic Kidney Disea se: Estimated GFR < 60 mL/min/1.67m0Vzomsh Kidney Disease: Estimated GFR < 15 mL/min/1.73m2 Glucose 134(H) 60 - 115 mg/dL [facility] Calcium 9.6 8.4 - 10.2 mg/dL [facility] 06/07/2025 11:5 6 AM EDT 06/07/2025 12:59 PM EDT us Phyllis Silva MD LAB BLOOD ORDERABLES Final Resul t [facility] [address] [place] [address] [phone] documented in this encounter Visit Diagnoses Not on filedocumented in this encounter Additional Health Concerns Assessment Noted Time PHQ-9 Depression Total Score: 23 025 1:38 PM EDT documented as of this encounter Care Teams Camera Storage Clerk Relationship Specialty Start Date End Date Phyllis Silva MD [address] [place] [address] PCP - General Family Medicine 08/16/18 Valentín Moreno, JulioD [address] [place] [address] Pharmacist Internal Medicine 05/25/23 documented as of this encounter
--- OUTSIDE RECORDS SUMMARY | 2025-06-07 15:08 | XMS_ITS | Encounter Summary ---
Author Organization [employer] Address [address] [facility] 7t [place] [address] Care Team Providers Care Employment Consultant Name Role Phone Phyllis Silva MD Primary Care Provider [phone] Valentín Moreno PharmD Unavailable [phone] Encounter Details Date Type Department Care Team (Late st Contact Info) Description 12/16/2022 Orders Only [facility] [address] [place] [address] Lani Silvre LPN Social History Tobacco Use Types Packs/Day [...] Description 06/25/2025 1:45 PM EST Office Visit [facility] [address] [place] [address] [phone] Phyllis Silva MD [address] [place] [address] [phone] 07/03/2025 1:00 PM EST Office Visit [facility] OPTOMET[facility] [address] [place], [place] [phone] Naye Garcia, OD [address] [place] [address] 07/04/2025 2:00 PM EST Medication Management [facility] [address] [place] [address] Valentín Moreno, PharmAmber [address] [place] [address] documented as of this encounter Visit Diagnoses Not on filedocumented in this encounter Care Teams Employment Consultant Relationship Specialty Start Date End Date Phyllis Silva MD [address] [place] [phone] PCP - General Family Medicine 08/16/18 Valentín Moreno, PharmD [address] [place] [address] [phone] Pharmacist Internal Medicine 05/25/23 documented as of this encounter
--- OUTSIDE RECORDS SUMMARY | 2025-06-07 15:08 | XMS_ITS | Encounter Summary ---
Author Organization [employer] Address [address] [facility] [address]t [place] [address] Care Team Providers Care French Pastry Cook Name Role Phone Phyllis Silva MD Primary Care Provider [phone] Valentín Moreno PharmD Unavailable Reason for Referral * Consultation (Routine) - Closed Specialty Diagnoses / Procedures Referred By Contac t Referred To Contact Pharmacy Diagnoses Hypertension, unspecified type Type 2 diabetes mellitus without complication, without long-term current use of insulin (HCC) Phyllis Silva MD [address] [place] [address] Phone: tel: fax: Referral ID Status Reason Start Date Expiration Date V isits Requested Visits Authorized [id number] Closed Consult and Treat 06/27/2024 06/27/2025 6 6 Encounter Details Date Type Department Care Team (Late st Contact Info) Description 06/27/2024 Orders Only [facility] [address] [place] [address] Phyllis Silva MD [address] [place] [address] [phone] Hypertension, unspecified type (Primary Dx); Type 2 diabetes mellitus without complication, without long-term current use of insulin ([facility]) Social History Tobacco Use Types Packs/Day [...] Office Visit [facility] [address] [place] [address] Phyllis Silva MD [address] [place] [address] 07/03/2025 1:00 PM EST Office Visit [facility] OPTOMETRY [address] [place] [address] Naye Garcia, OD [address] [place] [address] 07/04/2025 2:00 PM EST Medication Management [facility] [address] [place] [address] Valentín Moreno PharmD [address] [place] [address] Scheduled Referrals Name Type Priority Associated Diagnoses Orde r Schedule Referral to Pharmacy CDTM Outpatient Referral Routine Hypertension, unspecified type Type 2 diabetes mellitus without complication, without long-term current use of insulin ([facility]) Ordered: 06/27/2024 documented as of this encounter [...] complication, without long-term current use of insulin ([facility]) documented in this encounter Additional Health Concerns Assessment Noted Time PHQ-9 Depression Total Score: 4 02/23/20 23 1:20 PM EDT documented as of this encounter Care Teams French Pastry Cook Relationship Specialty Start Date End Date Phyllis Silva MD [address] [place] [address] [phone] PCP - General Family Medicine 08/16/18 Valentín Moreno PharmD [address] [place] [address] [phone] Pharmacist Internal Medicine 05/25/23 documented as of this encounter
--- OUTSIDE RECORDS SUMMARY | 2025-06-07 15:08 | XMS_ITS | Encounter Summary ---
Author Organization [employer] Address [address] 7t [place] [address] Care Team Providers Care Central Office Operator Name Role Phone Phyllis Silva MD Primary Care Provider [phone] Valentín Moreno PharmD Unavailable [phone] Encounter Details Date Type Department Care Team (Late st Contact Info) Description 12/30/2023 Abstract [facility] [address] [place] [address] Phyllis Silva MD [address] [place], [place] [phone] Social History Tobacco Use Types Packs/Day Years Used Date Smoking Tobacco: Never Passive Smoke Exposure: Never Smokeless Tobacco: Never Depression Answer Date Recorded Patient Health Questionnaire-9 Score 4 02/22/2023 Housing Stability Answer Date Recorded What is your housing situation today? I have davidben khan 05/31/[address] you [...] Description 06/25/2025 1:45 PM EST Office Visit [facility] [address] [place] [phone] Phyllis Silva MD [address] [place] [address] 07/03/2025 1:00 PM EST Office Visit [facility] OPTOMETRY [address] [place] [address] Naye Garcia, OD [address] [place] [address] 07/04/2025 2:00 PM EST Medication Management [facility] [address] [place] [address] Valentín Moreno, PharmD [address] [place] [address] documented as of this encounter Goals Goal Patient Goal Type Associated Problems Recent Progress Patient-Stated? Author Blood Pressure < 140/90 Blood Pressure 124/90(2024 1:07 PM EDT) No Valentín Moreno, PharmAmber Hemoglobin A1c < 7 Result Component 5.7( 1:08 PM EDT) No Valentín Moreno, Migue documented as of this encounter Procedures Procedure Name Priority Date/Time Associated Diagnosis Comments MAMMOGRAPHY Routine 02/19/2023 documented in this encounter Results * Mammography (02/19/2023) Mammogram BIRADS 1 Normal, Abnormal, BIRADS 1 , BIRADS 2 Anatomical Region Laterality Modality Other Historical Provider MD HEALTH MAINTENANCE Final Result documented in this encounter Visit Diagnoses Not on filedocumented in this encounter Additional Health Concerns Assessment Noted Time PHQ-9 Depression Total Score: 4 02/23/20 23 1:20 PM EDT documented as of this encounter Care Teams Central Office Operator Relationship Specialty Start Date End Date Phyllis Silva MD [address] [place] [address] PCP - General Family Medicine 08/16/18 Valentín Moreno, Migue [address] [place] [phone] Pharmacist Internal Medicine 05/25/23 documented as of this encounter
--- OUTSIDE RECORDS SUMMARY | 2025-06-07 15:08 | XMS_ITS | Encounter Summary ---
Author Organization [employer] Address [address] [facility] 7t [place] [address] Care Team Providers Care Clothing Designer Name Role Phone Phyllis Silva MD Primary Care Provider [phone] Valentín Moreno PharmD Unavailable [phone] Reason for Visit * Reason Onset Date Comments Appointment Request 11/16/2024 Encounter Details Date Type Department Care Team (Late st Contact Info) Description 11/16/2024 Telephone [facility] [address] [place], [place] [phone] Phyllis Silva MD [address] [place], [place] [phone] Appointment Request Social History Tobacco Use Types [...] for physical soonest availability. Please return call [phone] documented in this encounter Plan of Treatment Upcoming Encounters Date Type Department Care Team (Late st Contact Info) Description 06/25/2025 1:45 PM EST Office Visit [facility] [address] [place] [address] Phyllis Silva MD [address] [place] [address] 07/03/2025 1:00 PM EST Office Visit [facility] OPTOMETRY [address] [place] [address] Naye Garcia, OD [address] [place] [address] 07/04/2025 2:00 PM EST Medication Management [facility] [address] [place] [address] Valentín Moreno PharmD [address] [place] [address] documented as of this encounter Goals Goal [...] documented as of this encounter Care Teams Clothing Designer Relationship Specialty Start Date End Date Phyllis Silva MD [address] [place] [phone] PCP - General Family Medicine 08/16/18 Valentín Moreno PharmD [address] [place] [address] Pharmacist Internal Medicine 05/25/23 documented as of this encounter
--- OUTSIDE RECORDS SUMMARY | 2025-06-07 15:08 | XMS_ITS | Encounter Summary ---
Author Organization [employer] Address [address] [facility] 7t [place] [address] Care Team Providers Care Bargeman Name Role Phone Phyllis Silva MD Primary Care Provider [phone] Valentín Moreno PharmD Unavailable Reason for Referral * Consultation (Routine) - Canceled Specialty Diagnoses / Procedures Referred By Contac t Referred To Contact Pharmacy Diagnoses Type 2 diabetes mellitus without complication, without long-term current use of insulin ([facility]) Hypertension, unspecified type Phyllis Silva MD [address] [place] [address] Phone: tel: fax: Referral ID Status Reason Start Date Expiration Date V isits Requested Visits Authorized [id number] Canceled Consult and Treat 05/15/2024 05/15/2025 6 6 Encounter Details Date Type Department Care Team (Late st Contact Info) Description 05/15/2024 Orders Only [facility] [address] [place] [phone] Phyllis Silva MD [address] [place] [address] [phone] Type 2 diabetes mellitus without complication, without long-term current use of insulin ([facility]/HCC) (Primary Dx); Hypertension, unspecified type Social History [...] Description 06/25/2025 1:45 PM EST Office Visit [facility] [address] [place] [address] Phyllis Silva MD [address] [place] [address] 07/03/2025 1:00 PM EST Office Visit [facility] OPTOMETRY [address] [place] [address] Naye Garcia, OD [address] [place] [address] 07/04/2025 2:00 PM EST Medication Management [facility] [address] [place] [address] Valentín Moreno PharmD [address] [place] [address] Scheduled Referrals Name Type Priority Associated Diagnoses Orde r Schedule Referral to Pharmacy CDTM Outpatient Referral Routine Type 2 diabetes mellitus without complication, without long-term current use of insulin ([facility]) Hypertension, unspecified type Ordered: 05/15/2024 documented as [...] long-term current use of insulin ([facility])- Primary Hypertension, unspecified type documented in this encounter Additional Health Concerns Assessment Noted Time PHQ-9 Depression Total Score: 4 02/23/20 1:20 PM EDT documented as of this encounter Care Teams Bargeman Relationship Specialty Start Date End Date Phyllis Silva MD [address] [place] [address] [phone] PCP - General Family Medicine 08/16/18 Valentín Moreno PharmD [address] [place] [address] [phone] Pharmacist Internal Medicine 05/25/23 documented as of this encounter
== END 2025-06-07 11:51 | disposition home or self-care (01) ==
LOC: HO.HHCL 11:50
PROVIDERS: PCP Family Medicine; Visit Provider Family Medicine
DX: I10 Essential (primary) hypertension (principal)
CPT/HCPCS: 36415; 80048

== ENCOUNTER 2025-07-10 14:06 | Outpatient (REF) | payer MEDICARE, MEDICAID, SELFPAY ==
--- OUTSIDE RECORDS SUMMARY | 2025-07-10 18:02 | XMS_ITS | Encounter Summary ---
Author Organization [employer] Address [address] [facility] 7t [place] [address] Care Team Providers Care Automotive Project Engineer Name Role Phone Phyllis Silva MD Primary Care Provider [phone] Valentín Moreno PharmD Unavailable Reason for Referral * Consultation (Routine) - Canceled Specialty Diagnoses / Procedures Referred By Contac t Referred To Contact Pharmacy Diagnoses Type 2 diabetes mellitus without complication, without long-term current use of insulin ([facility]) Hypertension, unspecified type Phyllis Silva MD [address] [place] [phone] Phone: tel: fax: Referral ID Status Reason Start Date Expiration Date V isits Requested Visits Authorized [id number] Canceled Consult and Treat 05/15/2024 05/15/2025 6 6 Encounter Details Date Type Department Care Team (Late st Contact Info) Description 05/15/2024 Orders Only [facility] MEDICINE [address] [place] [phone] Phyllis Silva MD [address] [place] [address] [phone] Type 2 diabetes mellitus without complication, without long-term current use of insulin ([facility]) (Primary Dx); Hypertension, unspecified type Social History [...] as of this encounter Plan of Treatment Scheduled Referrals Name Type Priority Associated Diagnoses Orde r Schedule Referral to Pharmacy CDTM Outpatient Referral Routine Type 2 diabetes mellitus without complication, without long-term current use of insulin (CMS/HCC) Hypertension, unspecified type Ordered: 05/15/2024 documented as of this encounter Goals Goal Patient Goal Type Associated Problems Recent Progress Patient-Stated? Author Blood Pressure < 140/90 Blood Pressure 124/80(2024 2:09 PM EST) No Valentín Moreno PharmD Hemoglobin A1c < 7 Result Component 6.1( 1:44 PM EST) No Valentín Moreno PharmD documented as of this encounter Visit Diagnoses Diagnosis Type 2 diabetes mellitus without complication, without long-term current use of insulin (HCC)- Primary Hypertension, unspecified type documented in this encounter Additional Health Concerns Assessment Noted Time PHQ-9 Depression Total Score: 4 02/23/20 23 1:20 PM EDT documented as of this encounter Care Teams Automotive Project Engineer Relationship Specialty Start Date End Date Phyllis Silva MD [address] [place] [address] PCP - General Family Medicine 08/16/18 Valentín Moreno PharmD [address] [place] [phone] Pharmacist Internal Medicine 05/25/23 07/03/25 documented as of this encounter
--- OUTSIDE RECORDS SUMMARY | 2025-07-10 18:02 | XMS_ITS | Encounter Summary ---
Author Organization [employer] Address [address] [facility] 7t [place] [address] Care Team Providers Care Plug Overwrap Machine Tender Name Role Phone Phyllis Silva MD Primary Care Provider [phone] Valentín Moreno PharmD Unavailable [phone] Reason for Visit * Reason Onset Date Comments Appointment Request 11/16/2024 Encounter Details Date Type Department Care Team (Late st Contact Info) Description 11/16/2024 Telephone [facility] MEDICINE [address] [place], [place] [phone] Phyllis Silva MD [address] [place], [place] [phone] Appointment Request Social History Tobacco Use Types [...] for physical soonest availability. Please return call [phone] documented in this encounter Plan of Treatment Not on file documented as of this encounter Goals Goal Patient Goal Type Associated Problems Recent Progress Patient-Stated? Author Blood Pressure < 140/90 Blood Pressure 124/80(2024 2:09 PM EST) No Valentín Moreno, PharmD Hemoglobin A1c < 7 Result Component 6.1( 1:44 PM EST) No Valentín Moreno PharmD documented as of this encounter Visit Diagnoses Not on filedocumented in this encounter Additional Health Concerns Assessment Noted Time PHQ-9 Depression Total Score: 4 02/23/20 23 1:20 PM EDT documented as of this encounter Care Teams Plug Overwrap Machine Tender Relationship Specialty Start Date End Date Phyllis Silva MD [address] [place] [address] PCP - General Family Medicine 08/16/18 Valentín Moreno, Migue [address] [place] [address] Pharmacist Internal Medicine 05/25/23 07/03/25 documented as of this encounter
--- OUTSIDE RECORDS SUMMARY | 2025-07-10 18:02 | XMS_ITS | Encounter Summary ---
Author Organization [employer] Address [address] [facility] 7t [place] [address] Care Team Providers Care Maintenance And Utilities Supervisor Name Role Phone Phyllis Silva MD Primary Care Provider [phone] Valentín Moreno PharmD Unavailable [phone] Encounter Details Date Type Department Care Team (Late st Contact Info) Description 12/16/2022 Orders Only [facility] [address] [place] [address] Lani Silver LPN Social History Tobacco Use Types Packs/Day Years Used Date Smoking Tobacco: Never Assessed Comments Unknown Sex and Gender Information Value Date Recorded Sex Assigned at Female 06/15/2022 10:14 AM EDT Legal Sex Female 10:14 AM EDT Gender Identity Female 06/15/2022 10:14 AM EDT Sexual Orientation Straight 06/15/2022 10 :14 AM EDT documented as of this encounter Plan of Treatment Not on file documented as of this encounter Visit Diagnoses Not on filedocumented in this encounter Care Teams Maintenance And Utilities Supervisor Relationship Specialty Start Date End Date Phyllis Silva MD [address] [place] [address] PCP - General Family Medicine 08/16/18 Valentín Moreno, PharmD [address] [place] [address] Pharmacist Internal Medicine 05/25/23 07/03/25 documented as of this encounter
--- OUTSIDE RECORDS SUMMARY | 2025-07-10 18:02 | XMS_ITS | Encounter Summary ---
Author Organization [employer] Address [address] [facility] 7t [place] [address] Care Team Providers Care Soil Technician Name Role Phone Phyllis Silva MD Primary Care Provider [phone] Valentín Moreno PharmD Unavailable [phone] Encounter Details Date Type Department Care Team (Late st Contact Info) Description 08/21/2022 Orders Only [facility] MED[facility]INE [address] [place] [address] Lacie Miles RN Social History Tobacco Use [...] on file documented as of this encounter Procedures Procedure [...] 11:04 AM EST) Hemoglobin A1c 8.3 % [facility] Comment:Hemoglobin A1C Refer ence Range Adults: 4.8 - 6.0 % Non diabetic: < 6.0 % Goal: < 7.0 %Additional Action Suggested: > 8.0 %Note: Hemoglobin A1c results are invalid for patients with abnormal amounts of HbF. Blood transfusions may impact the HbA1c concentration in the patient sample. Estimated Average Glucose 192 mg/dL [facility] Comment:eAG = Estimated ave rage glucose which is %A1C expressed asaverage glucose, using the formula of the P8D-XrdqoctZidvdqt Glucose study (ADAG), Diabetes Care, Vol.31,#8,Mar. 2007 09/22/2022 11:0 4 AM EST 09/22/2022 11:04 AM EST [facility] External Provider LAB BLO OD ORDERABLES Final Result [facility] [address] [place] [phone] * TSH W/Reflex to FT4 (09/22/2022 11:04 AM EST) TSH reflex Free T4 2.16 0.32 - 4.0 uIU/mL [facility] 09/22/2022 11:0 4 AM EST 09/22/2022 11:04 AM EST [facility] External Provider LAB BLO OD ORDERABLES Final Result Performing Organization Address [facility] Co de Phone Number [facility] [address] [place] [address] [phone] * Lipid Panel, Standard (09/22/2022 11:04 AM EST) Triglycerides 167 mg/dL [facility] Comment:Desirable Triglyceri de: less than 150 mg/dLBorderline High Triglyceride 150-199 mg/dLHigh Triglyceride: 200-499 mg/dLVery High Triglyceride: greater than or equal to 5OO mg/dL Cholesterol 229 mg/dL [facility] Comment:Desirable Cholestero l: less than 200 mg/dLBorderline High Cholesterol: 200-239 mg/dLHigh Cholesterol: greater than 239 mg/dL LDL Cholesterol Calculated 152 mg/dl [facility] Comment:Desirable LDL: less than 100 mg/dLNear Optimal/Above Optimal LDL: 110- 129 mg/dLBorderline High LDL: 130-159 mg/dLHigh LDL: 160-189 mg/dLVery High LDL: greater than or equal to 190 mg/dL HDL Cholesterol 44 mg/dL [facility] Comment:Desirable HDL: great er than 40 mg/dL Note: This HDL assay may give artificially low results in patients with liver disease. 09/22/2022 11:0 4 AM EST 09/22/2022 11:04 AM EST us [facility] External Provider LAB BLO OD ORDERABLES Final Result Performing Organization Address City/[facility]/ZIP Co de Phone Number [facility] [address] [place] [address] [phone] * (ABNORMAL) Comprehensive Metabolic Panel (09/22/2022 11:04 AM EST) Sodium 139 135 - 145 mmol/L [facility] Potassium 4.8 3.3 - 5.1 mmol/L [facility] Chloride 104 96 - 108 mmol/L [facility] Carbon Dioxide 23 22 - 29 mmol/L [facility] Anion Gap 17 12 - 20 [facility] Urea Nitrogen (BUN) 10 9 - 16 mg/dL [facility] Creatinine, Serum 0.76 0.5 - 1.4 mg/dL [facility] Estimated Glomerular Filt Rate >60 [facility] Comment:NOTE: For -Am erican individuals, multiply the result by 1.210.Chronic Kidney Disease: Estimated GFR < 60 mL/min/1.15w4Lrlbqg Kidney Disease: Estimated GFR < 15 mL/min/1.73m2 Glucose 248(H) 60 - 115 mg/dL [facility] Calcium 9.7 8.4 - 10.2 mg/dL [facility] Bilirubin, Total 0.5 0.0 - 1.0 mg/dL [facility] Aspartate Amino Transferase 28 5 - 31 U/L [facility] Alanine Aminotransferase 52(H) 0 - 31 U/L [facility] Total Protein 7.2 6.5 - 8.0 g/dL [facility] Albumin Level 4.6 3.5 - 5.0 g/dL [facility] Alkaline Phosphatase 135(H) 39 - 117 U/L [facility] 09/22/2022 11:0 4 AM EST 09/22/2022 11:04 AM EST us [facility] External Provider LAB BLO OD ORDERABLES Final Result [facility] [address] [place] [phone] * CBC auto differential (09/22/2022 11:04 AM EST) White Blood Count 6.2 4.8 - 10.8 X10*3/uL [facility] Red Blood Count 4.90 4.20 - 5.50 X10*6/uL [facility] Hemoglobin 14.2 12.0 - 16.0 g/dl [facility] Hematocrit 41.8 37.0 - 47.0 % [facility] Mean Corpuscular Volume 85.3 80.0 - 98.0 fL [facility] Mean Corpuscular Hemoglobin 29.0 27.0 - 33.0 pg [facility] Mean Corpuscular HGB Conc 34.0 31.0 - 35.0 g/dl [facility] Red Cell Distribution Width 12.0 11.0 - 16.0 % [facility] Platelet Count 231 160 - 400 X10*3/uL [facility] Mean Platelet Volume 11.9 9.4 - 12.3 fL [facility] Neutrophils Percent Auto 53.8 45 - 73 % [facility] Imm Gran Pct Auto 0.3 0.0 - 0.4 % [facility] Lymphocytes Percent Auto 35.2 20 - 40 % [facility] Monocytes Percent Auto 6.6 2 - 11 % [facility] Eosinophils Percent Auto 3.5 0 - 4 % [facility] Basophils Percent Auto 0.6 0 - 2 % [facility] NRBC Pct Auto 0.0 0.0 - 0.2 /100WBC [facility] Neutrophils Absolute Auto 3.3 2.0 - 8.3 x10*3/uL [facility] Imm Gran Abs Auto 0.02 0.00 - 0.03 X10*3/uL [facility] Lymphocytes Absolute Auto 2.2 1.2 - 4.9 X10*3/uL [facility] Monocytes Absolute Auto 0.4 0.1 - 1.2 X10*3/uL [facility] Eosinophils Absolute Auto 0.2 0.0 - 0.4 X10*3/uL [facility] Basophils Absolute Auto 0.0 0.0 - 0.2 X10*3/uL [facility] NRBC Abs Auto 0.000 0.0 - 0.012 X10*3/uL [facility] 09/22/2022 11:0 4 AM EST 09/22/2022 11:04 AM EST us [facility] External Provider LAB BLO OD ORDERABLES Final Result [facility] [address] [place] [phone] * Hematoxylin and Eosin Stain (09/08/2022 10:46 AM EST) 09/08/2022 10:4 6 AM EST 09/08/2022 12:35 PM EST [facility] - 09/09/2022 12:25 PM EST ----- ------- Name: Lilia Stewart Age/Sex: 47/F : 1975 Unit#: [id number] Attend Dr: Reuben Walls MD Re09/08/22 Status: [facility] Location: [facility] Disch: ----- ------- SPEC : [id number] RECD: 09/08/22-1235 STATUS: ROSLYN CARROLL NUM: [id number] RYAN: 09/08/22-[address] [facility] [address]: Reuben Walls MD ENTERED: 09/08/22-4844 SP TYPE: Surgical OTHR DR: Phyllis Silva [...] Lilia Stewart Age/Sex: 47/F : 1975 Unit#: [id number] Attend Dr: Reuben Walls MD Re09/08/22 Status: [facility] Location: [facility] Disch: ----- ------- SPEC : [id number] RECD: 09/08/22-1238 STATUS: ROSLYN CARROLL NUM: [id number] RYAN: 09/08/22-[address] [facility] [address]: Reuben Walls MD ENTERED: 09/08/22-7116 SP TYPE: Surgical OTHR DR: Phyllis Silva MD ORDERED: HE Stain/5, Gross Micro L4/2 COMMENTS: Part B: One of the tissue fragments is tiny and may be difficult to identify during processing and may fail to survive processing. Copies To: Reuben Walls MD [address] [place] [address] [place] [address] Phyllis Silva MD [address] [place], [place] [phone] ----- ------- Signed (signature on file) Mona Broxton 09/09/22 1225 ----- ------- END OF REPORT [facility] External Provider LAB BLO OD ORDERABLES Final Result [facility] [address] [place] [phone] * (ABNORMAL) GLUCOSE, WHOLE BLOOD (09/08/2022 9:40 AM EST) Glucose, Whole Blood 198(H) 60 - 115 mg/dL [facility] Comment:METER #: [id number] 09/08/2022 9:40 AM EST 09/08/2022 9:43 AM EST [facility] External Provider LAB BLO OD ORDERABLES Final Result [facility] [address] [place] [phone] [phone] documented in this encounter Visit Diagnoses Not on filedocumented in this encounter Care Teams Soil Technician Relationship Specialty Start Date End Date Phyllis Silva MD [address] [place] [address] PCP - General Family Medicine 08/16/18 Valentín Moreno, JulioD [address] [place] [address] Pharmacist Internal Medicine 05/25/23 07/03/25 documented as of this encounter
--- OUTSIDE RECORDS SUMMARY | 2025-07-10 18:02 | XMS_ITS | Encounter Summary ---
Author Organization [employer] Address [address] [facility] [address] [place] [address] Care Team Providers Care Endodontics Dentist Name Role Phone Phyllis Silva MD Primary Care Provider [phone] Valentín Moreno PharmD Unavailable [phone] Encounter Details Date Type Department Care Team (Late st Contact Info) Description 07/03/2025 Orders Only [facility] MED[facility]INE [address] [place] [address] Phyllis Silva MD [address] [place] [address] Social History Tobacco Use Types Packs/Day Years [...] this encounter Functional Status * Over the last 2 weeks, how often have you been bothered by any of the following problems? Question Answer Date of Assessment Author Feeling nervous, anxious, or on edge 2 07/05/2025 3:08 PM Patria Saravia MA Not being able to stop or control worrying 2 07/05/2025 3:08 PM Patria Saravia MA Worrying too much about different things 3 07/05/2025 3:08 PM Patria Saravia MA Trouble relaxing 2 07/05/2025 3:08 PM Nicolette Espinoza MA Being so restless that it is hard to sit still 2 07/05/2025 3:08 PM Patria Saravia MA Becoming easily annoyed or irritable 1 07/05/2025 3:08 PM Patria Saravia MA Feeling afraid as if somethi ng awful might happen 0 07/05/2025 3:08 PM EST Patria Granado MA ELOY-7 Total Score 12 07/05/2025 3:08 PM EST Nicolette Granado MA documented as of this encounter Plan of Treatment Not on file documented as of this encounter Goals Goal Patient Goal Type Associated Problems Recent Progress Patient-Stated? Author Blood Pressure < 140/90 Blood Pressure 124/80(2024 2:09 PM EST) No Valentín Moreno PharmD Hemoglobin A1c < 7 Result Component 6.1( 1:44 PM EST) No Valentín Moreno, PharmAmber Help patients manage their type 2 diabetes Care Plan Help patients manage their type 2 diabetes No Colon Azar, Vianca Weekly blood pressure task Care Plan Weekly blood pressure task No Colon Azar, Vianca Help patients manage their type 2 diabetes Care Plan Help patients manage their type 2 diabetes No Colon Azar, Vianca Patient has chronic kidney disease Care Plan Patient has chronic kidney disease No Colon Azar, Vianca Weekly blood pressure task Care Plan Weekly blood pressure task No Colon Azar, Vianca Patient has chronic kidney disease Care Plan Patient has chronic kidney disease No Colon Azar, Vianca Weekly blood pressure task Care Plan Weekly blood pressure task No Rodrigez, Panfilo Weekly blood pressure task Care Plan Weekly blood pressure task No Rodrigez, Panfilo Patient has chronic kidney disease Care Plan Patient has chronic kidney disease No Rodrigez, Panfilo Patient has chronic kidney disease Care Plan Patient has chronic kidney disease No Rodrigez, Panfilo Weekly blood pressure task Care Plan Weekly blood pressure task No Valentín Moreno, PharmD Weekly blood pressure task Care Plan Weekly blood pressure task No Valentín Moreno, PharmD Patient has chronic kidney disease Care Plan Patient has chronic kidney disease No Valentín Moreno, PharmD Patient has chronic kidney disease Care Plan Patient has chronic kidney disease No Valentín Moreno, PharmD Weekly blood pressure task Care Plan Weekly blood pressure task No Jose, Naye, OD Weekly blood pressure task Care Plan Weekly blood pressure task No Jose, Naye, OD Patient has chronic kidney disease Care Plan Patient has chronic kidney disease No Jose, Naye, OD Patient has chronic kidney disease Care Plan Patient has chronic kidney disease No Jose, Naye, OD Weekly blood pressure task Care Plan Weekly blood pressure task No Sakurai, Phyllis, MD Weekly blood pressure task Care Plan Weekly blood pressure task No Phyllis Silva MD Patient has chronic kidney disease Care Plan Patient has chronic kidney disease Phyllis Jenkins MD Patient has chronic kidney disease Care Plan Patient has chronic kidney disease Phyllis Jenkins MD documented as of this encounter Visit Diagnoses Not on filedocumented in this encounter Additional Health Concerns Active Problems Noted Date Diagnosed Date Help patients manage their type 2 diabetes 07/02 Weekly blood pressure task 07/02/2025 Help patients manage their type 2 diabetes 07/02 Patient has chronic kidney disease 07/02/2025 Weekly blood pressure task 07/02/2025 Patient has chronic kidney disease 07/02/2025 Weekly blood pressure task 07/02/2025 Weekly blood pressure task 07/02/2025 Patient has chronic kidney disease 07/02/2025 Patient has chronic kidney disease 07/02/2025 Weekly blood pressure task 07/03/2025 Weekly blood pressure task 07/03/2025 Patient has chronic kidney disease 07/03/2025 Patient has chronic kidney disease 07/03/2025 Weekly blood pressure task 07/03/2025 Weekly blood pressure task 07/03/2025 Patient has chronic kidney disease 07/03/2025 Patient has chronic kidney disease 07/03/2025 Weekly blood pressure task 07/03/2025 Weekly blood pressure task 07/03/2025 Patient has chronic kidney disease 07/03/2025 Patient has chronic kidney disease 07/03/2025 Assessment Noted Time PHQ-9 Depression Total Score: 23 025 1:38 PM EDT documented as of this encounter Care Teams Endodontics Dentist Relationship Specialty Start Date End Date Phyllis Silva MD [address] [place] [address] PCP - General Family Medicine 08/16/18 Valentín Moreno, PharmD [address] [place] [address] Pharmacist Internal Medicine 05/25/23 07/03/25 documented as of this encounter
--- OUTSIDE RECORDS SUMMARY | 2025-07-10 18:02 | XMS_ITS | Encounter Summary ---
Author Organization [employer] Address [address] [facility] 7t [place] [address] Care Team Providers Care Social Media Assistant Name Role Phone Phyllis Silva MD Primary Care Provider [phone] Valentín Moreno PharmD Unavailable Reason for Referral * Consultation (Routine) - Closed Specialty Diagnoses / Procedures Referred By Contac t Referred To Contact Pharmacy Diagnoses Hypertension, unspecified type Type 2 diabetes mellitus without complication, without long-term current use of insulin (HCC) Phyllis Silva MD [address] [place] [address] Phone: tel: fax: Referral ID Status Reason Start Date Expiration Date V isits Requested Visits Authorized [id number] Closed Consult and Treat 04/24/2025 04/24/2026 6 6 Encounter Details Date Type Department Care Team (Late st Contact Info) Description 04/24/2025 Orders Only [facility] MEDICINE [address] [place] [phone] Phyllis Silva MD [address] [place] [address] Hypertension, unspecified type (Primary Dx); Type 2 diabetes mellitus without complication, without long-term current use of insulin ([facility]) Social History Tobacco Use Types Packs/Day Years [...] complication, without long-term current use of insulin ([facility]) Ordered: 04/24/2025 documented as of this encounter [...] long-term current use of insulin ([facility]) documented in this encounter Additional Health Concerns Assessment Noted Time PHQ-9 Depression Total Score: 025 1:38 PM EDT documented as of this encounter Care Teams Social Media Assistant Relationship Specialty Start Date End Date Phyllis Silva MD [address] [place] [address] PCP - General Family Medicine 08/16/18 Valentín Moreno PharmD [address] [place] [phone] Pharmacist Internal Medicine 05/25/23 07/03/25 documented as of this encounter
--- OUTSIDE RECORDS SUMMARY | 2025-07-10 18:02 | XMS_ITS | Clinical Summary ---
Author Organization [employer] Address [address] [place] [address] Care Team Providers Care Shovel Logger Name Role Phone Phyllis Silva MD Primary Care Provider [phone] Allergies No known active allergies Medications * [...] sugar daily as directed. 100 each 3 06/27/20 25 12:41 PM EST 025 Active FreeStyle lancetsIndicati ons:Type 2 diabetes mellitus without complication, without long-term current use of insulin (HCC) 1 each by Other route Once per day. 100 each 3 06/27/20 25 12:41 PM EST 025 Active glucose blood (FREESTYLE LITE) test stripIndication s:Type 2 diabetes mellitus without complication, without long-term current use of insulin (HCC) Use to check blood sugar daily as directed. 100 each 3 06/27/20 25 12:41 PM EST 025 Active omeprazole (PriLOSEC) [address] capsule TAKE 1 CAPSULE BY MOUTH TWICE DAILY BEFORE BREAKFAST AND BEFORE SUPPER DO NOT BREAK, CRUSH, DISSOLVE OR CHEW 180 capsule 3 Active D3-1000 25 MCG (1000 UT) capsuleIndicati ons:Vitamin deficiency TAKE 1 CAPSULE BY MOUTH EVERY DAY 90 capsule 3 025 Active cyanocobalamin (Vitamin B-12) 1000 MCG tablet TAKE 1 TABLET BY MOUTH EVERY DAY 90 tablet 3 025 Active cetirizine (ZyrTEC) 10 MG tablet Take 1 tablet (10 mg) by mouth Once per day. 90 tablet 3 06/27/20 25 12:41 PM EST 025 Active senna-docusate sodium (Senokot-S) 8.6-50 MG tablet Take 1 or 2 tablets by mouth once a day as needed for constipation 180 tablet 1 Active traZODone (Desyrel) 100 MG tabletIndicatio ns:Difficulty sleeping TAKE 1 TABLET BY MOUTH EVERY EVENING 30 tablet 11 06/27/20 25 12:41 PM EST Active metFORMIN XR (Glucophage-XR) 500 MG 24 hr tablet TAKE 2 TABLETS BY MOUTH TWICE DAILY IN THE MORNING AND EVENING 120 tablet 11 06/27/20 25 12:41 PM EST Active cromolyn (Opticrom) 4 % ophthalmic solution PLACE 1 DROP IN EACH EYE FOUR TIMES DAILY 10 mL 3 Active Trulicity 1.5 MG/0.5ML solution auto-injectorIn dications:Type 2 diabetes mellitus without complication, without long-term current use of insulin (HCC) INJECT ONE PEN (=1.5MG) SUBCUTANEOUSLY ONCE A WEEK DIRECTED 2 mL 5 Active famotidine (Pepcid) 20 MG tablet Take 1 tablet (20 mg) by mouth at bedtime. 15 tablet 06/27/20 25 12:41 PM EST 2025 Active escitalopram (Lexapro) 5 MG tablet Take 1 tablet (5 mg) by mouth Once per day. 90 tablet 3 06/27/20 25 12:41 PM EST Active calcium carbonate (Tums) 500 MG chewable tablet Take 1-2 tablets by mouth 4 times a day, as needed for heart burn. Maximum 8 tabs per day. 30 tablet 1 07/04/20 25 1:21 PM EST Active lisinopril 30 MG tabletIndicatio ns:Essential hypertension Take 1 tablet (30 mg) by mouth in the morning. 30 tablet 11 023 2023 Discontinued FLUoxetine (PROzac) 20 MG capsule Take 3 capsule by mouth every day in the morning 270 capsule 11 025 2024 Discontinued(S mirta effects) Active Problems Problem Noted Date Diagnosed Date Allergic rhinitis 04/06/2025 Assessment & Plan (04/06/2025 4:33 PM EDT): - continue cetirizine ELOY (generalized anxiety disorder) 04/02/2025 Assessment & Plan (07/06/2025 9:21 AM EST): - Switching paroxetine to escitalopram Lichen sclerosus 09/05/2023 Assessment & Plan (01/02/2025 [...] supply - recommended to discuss with her TONGUE CARRIER for stress incontinence evaluation and treatment Assessment & Plan (09/05/2023 12:11 PM EST): - likely mixed, stress and OAB - Discussed about Pelvic floor muscle exercise - Will write script for incontinence supply - recommended to discuss with her TONGUE CARRIER for stress incontinence evaluation and treatment Chronic idiopathic constipation 02/22/2023 Assessment & Plan (07/06/2025 9:18 AM EST): Last seen by GI on 09/22/22. -continue Fiber-rich diet -Colonoscopy on 09/08/22, Dx Tubular Adenoma. Recommended repeat in 3yrs. -Continue Senna Assessment & Plan (04/06/2025 4:32 PM EDT): [...] and patient education was provided -seen by internet manager and was informed that treatment is considered as cosmetic, not medical -patient is not interested in pursuing aesthetic surgery Assessment & Plan (09/05/2023 11:49 AM EST): -seen by optmetrist and patient education was provided -seen by internet manager and was informed that treatment is considered [...] (09/05/2023 12:09 PM EST): - Followed by TONGUE CARRIER - PAP in January 2023, NILM with [...] 2 diabetes mellitus 02/17/2023 Assessment & Plan (07/06/2025 9:25 AM EST): diagnosed in July 2020 -A1C 6.1% on 06/25/2025, increased from 5.7% on 04/02/25 -continue metformin ER 1g twice daily, lik -continue working on lifestyle modifications -Comprehensive / dilated eye exam: 03/02/22 at [facility], no diabetic retinopathy -Comprehensive foot exam: 01/02/25 -Last microalbumin test: 11/17/24 UACR 11.2 -Last lipid profile: 11/17/24 TC 144; TG 123; HDL 46; LDL 74 -Last dental exam: -follow up in 3 mo or sooner prn Assessment & Plan (04/05/2025 10:37 PM EDT): diagnosed in July 2020 -A1C 5.7% on 04/02/25, improved from 6.0% on 01/02/25 -continue metformin ER 1g twice daily, lik -continue working on lifestyle modifications -Comprehensive / dilated eye exam: 03/02/22 at [facility], no diabetic retinopathy -Comprehensive foot exam: [...] -Comprehensive / dilated eye exam: 03/02/22 at [facility], no diabetic retinopathy -Comprehensive foot exam: [...] -Comprehensive / dilated eye exam: 03/02/22 at [facility], no diabetic retinopathy -Comprehensive foot exam: 08/04/21 -Last microalbumin test: 02/24/23 UACR 9.2 -Last lipid profile: 08/25/23 -Last dental exam: -follow up in 3 mo or sooner prn Assessment & Plan (11/30/2023 5:01 PM EDT): diagnosed in July 2020 -A1C 5.7% on 11/30/23. -continue metformin ER 1g twice daily, lik -continue working on lifestyle modifications -Comprehensive / dilated eye exam: 03/02/22 at [facility], no diabetic retinopathy -Comprehensive foot exam: 08/04/21 -Last microalbumin test: 02/24/23 UACR 9.2 -Last lipid profile: 08/25/23 -Last dental exam: -follow up in 3 mo or sooner prn Assessment & Plan (09/05/2023 11:56 AM EST): diagnosed in July 2020 -A1C 6.7% on 06/30/23. -continue metformin ER 1g twice daily, lik -continue working on lifestyle modifications -Comprehensive / dilated eye exam: 03/02/22 at [facility], no diabetic retinopathy -Comprehensive foot exam: [...] -Comprehensive / dilated eye exam: 03/02/22 at [facility], no diabetic retinopathy -Comprehensive foot exam: 08/04/21 -Last microalbumin test: 12/13/20 UACR 28 -Last lipid profile: 08/06/20 -Last dental exam: Immunizations: Reviewed, updating Aspirin use: No strong indication at this time PHQ: Hx depression Dyslipidemia 08/26/2017 Assessment & Plan (07/06/2025 9:17 AM EST): -Last lipid profile: 11/17/24 TC 144; TG 123; HDL 46; LDL 74 -Xanthelasma -Current medication: atorvastatin 10 mg qhs -Continue working on lifestyle modifications. Assessment & Plan (04/02/2025 6:08 AM EDT): [...] Gastroesophageal reflux disease 05/04/2012 Assessment & Plan (07/06/2025 9:22 AM EST): -On 01/06/18 EGD done which showed normal exam except mild hiatal hernia. -Colonoscopy on 09/08/22, tubular adenoma, repeat in 3yrs -Previously prescribed sucralfate by GI - Currently taking omeprazole 20 mg every day - Due to worsening GI symptoms, will check H. pylori. Advised her to hold omeprazole for 2 to 3 weeks, then submit stool antigen. Advised her to take famotidine while holding omeprazole. Assessment & Plan (01/02/2025 9:15 AM EDT): [...] mg prn Hypertension 05/04/2012 Assessment & Plan (07/06/2025 9:16 AM EST): Goal BP< 130/80 per ACC/AHA. BP not [...] favorable for no ischemia. 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 - Seen by integrated behavioral health service clinician in March 2025; Assessment & Plan (07/06/2025 9:19 AM EST): >>ASSESSMENT AND PLAN FOR SEVERE EPISODE OF RECURRENT MAJOR DEPRESSIVE DISORDER, WITHOUT PSYCHOTIC FEATURES (CMS/HCC) (HCC) WRITTEN ON 04/04/2025 9:39 AM BY SHANIQUA HALL During IBH Consult Lilia presenting with depressed [...] Currently, her PCP is managing her medication. Liila has different medical conditions that can also exacerbate sxs. She was open to practice exercises during session to decrease sxs. Assessment & Plan (04/06/2025 4:36 PM EDT): [...] today -pt agreed to be referred to [facility] Resolved Problems Problem Noted Date Diagnosed Date Resolved Date Abnormal liver function test 11/30/2023 01/08/2025 Assessment & Plan (01/02/2025 9:14 AM EDT): Evaluate US Assessment & Plan (11/30/2023 5:01 PM EDT): Evaluate US Chronic cough 08/31/2023 02/21/2024 Assessment & Plan (11/28/2023 6:07 PM EDT): - since Apr 2023 - DDx allergic rhinitis; asthma; post-COVID; ILD - Following with [facility], last seen by Dr. Parmar in [...] rhinitis; asthma; post-COVID; ILD - Following with [facility]; upcoming appointment for PFT and RAST - Discontinued lisinopril, but cough did not improve - continue current treatment per clinical associate Lichen sclerosus of vulva 02/22/2023 Encounters Date Type Department Care Team Description 07/04/2025 Travel 07/03/2025 1:00 PM EST Office Visit [facility] [address] [place] [address] Jose, Naye, OD Diabetes type 2, no ocular involvement (HCC) (Primary Dx); Xanthelasma of upper eyelids of both eyes; Intractable migraine with aura with status migrainosus; Dry eyes; Presbyopia 07/03/2025 Orders Only [facility] [place] [address] Phyllis Silva MD 07/03/2025 Travel 07/02/2025 Telephone [facility] [place] [address] Phyllis Silva MD Medication Question 06/27/2025 Travel 06/25/2025 1:45 PM EST Office Visit [facility] [place] [address] Phyllis Silva MD Hypertension, unspecified type (Primary Dx); Dyslipidemia; Type 2 diabetes mellitus without complication, without long-term current use of insulin ([facility]); Depressive disorder; ELOY (generalized anxiety disorder); Severe episode of recurrent major depressive disorder, without psychotic features (CMS/HCC) (HCC); Encounter for immunization; Encounter for vaccination; Abdominal discomfort; Dyspepsia; Gastroesophageal reflux disease, unspecified whether esophagitis present; Chronic idiopathic constipation 06/25/2025 Travel 06/22/2025 Telephone [facility] [place] [address] Phyllis Silva MD Chartprep 06/18/2025 Travel 06/07/2025 Orders Only [facility] [place] [address] Phyllis Silva MD 05/29/2025 Refill [facility] [place] [address] Valentín Moreno, Migue Type 2 diabetes mellitus without complication, without long-term current use of insulin (HCC) 05/11/2025 Refill [facility] [place] [address] Phyllis Silva MD 05/01/2025 Travel 04/24/2025 Orders Only [facility] [place] [address] Phyllis Silva MD Hypertension, unspecified type (Primary Dx); Type 2 diabetes mellitus without complication, without long-term current use of insulin (CMS/HCC) 04/24/2025 Telephone [facility] [place] [address] Phyllis Silva MD 04/23/2025 Refill [facility] [address] [place] [address] Phyllis Silva MD 04/13/2025 Refill [facility] [address], [place] [id number] Phyllis Silva MD Difficulty sleeping from Last 3 Months Immunizations Immunization Administration Dates Next Due Hep B, adult 08/04/2018,01/13/2018,08/16/2006 Influenza Injectable Quadriv alant Preservative Free IIV4 MDCK 05/21/2023 Influenza injectable quadriv alent IIV4 with preservative 08/26/2017 Influenza injectable quadriv alent preservative free 05/27/2021,04/16/2020 Influenza, IIV3, injectable 08/06/2014,1 ,07/07/2010,2008,05/25/2008 Influenza, Split (incl. gurinder fied surface antigen) 06/02/2013,05/04/2012 Influenza, seasonal, injecta ble, preservative free 06/25/2025,06/08/2024 MMR 01/13/2018,09/21/2006 Mumps 09/09/2006 Pfizer Covid-19 Vaccine 12+ 06/25/2025,1 ,02/22/2024,2023(Deferred: Patient decision - Ok with vaccines, not [...] Sign Reading Time Taken Comments Blood Pressure 124/80 07/04/2025 2:09 PM EST Pulse 78 07/04/2025 2:09 PM EST Temperature 36 C (96.8 F) 06/25/2025 1:42 PM EST Respiratory Rate 13 06/25/2025 1:42 PM EST Oxygen Saturation 99% 06/25/2025 1:42 PM EST Inhaled Oxygen Concentration - - Weight 76.4 kg (168 lb 6.4 oz) 06/25/2025 1:42 P M EST Height 162.6 cm (5' 4 ) 06/25/2025 1:42 PM EST Body Mass Index 28.91 06/25/2025 1:42 PM EST Plan of Treatment Health Maintenance Due Date Last Done Comments CT Colonography 1975 FIT DNA/Cologuard 1975 FIT 1975 FOBT 1975 Sigmoidoscopy 1975 Diabetes: Hemoglobin A1C 09/25/2025 025, 04/02/2025, 01/02/2025, Additional history exists Depression Monitoring 10/03/2025 04/02/2025, 025 Diabetes: Urine Protein Screening 11/17/2025 11/17/2024, 02/24/2023, 02/24/2023, Additional history exists Lipid Panel 11/17/2025 11/17/2024, 08/16, 02/24/2023, Additional history exists Alcohol/Substance Use Screening 01/02/2026 01/02/2025 Diabetes: Foot Exam 01/02/2026 01/02/2025, 01/02/2025, 01/02/2025, Additional history exists SDOH Screening 01/02/2026 01/02/2025 Disability Screening 01/19/2026 01/19/2025 Family Planning (PISQ) 04/06/2026 04/06/2025 Tobacco Screening 06/25/2026 06/25/2025 Mammogram 03/14/2027 03/14/2025, 02/13, 02/19/2023 Eye Exam 07/03/2027 07/03/2025, 06/16, 07/03/2025, Additional history exists Colonoscopy 09/08/2027 09/08/2022, 09/08/2022 Colorectal Cancer Screening 09/08/2027 Cervical Cancer [...] Vaccines Completed 08/02/2023, 05/31/2023 COVID-19 Vaccine Completed 06/25/2025, , 02/22/2024, Additional history exists Influenza Vaccine Completed 06/25/2025, , 05/21/2023, Additional history exists HIB Vaccines Aged Out [...] 124/80(2024 2:09 PM EST) No Valentín Moreno, PharmAmber Hemoglobin A1c < 7 Result Component 6.1( 1:44 PM EST) No Valentín Moreon, PharmAmber Help patients manage their type 2 diabetes Care Plan Help patients manage their type 2 diabetes No Vianca Velasquez Weekly blood pressure task Care Plan Weekly blood pressure task No Ashlyn Velasquezla Help patients manage their type 2 diabetes Care Plan Help patients manage their type 2 diabetes No Colon Vianca Azar Patient has chronic kidney disease Care Plan Patient has chronic kidney disease No Colon Vianca Azar Weekly blood pressure task Care Plan Weekly blood pressure task No Colon Vianca Azar Patient has chronic kidney disease Care Plan Patient has chronic kidney disease No Colon Vianca Azar Weekly blood pressure task Care Plan Weekly blood pressure task No Rodrigez, Panfilo Weekly blood pressure task Care Plan Weekly blood pressure task No Rodrigez Panfilo Patient has chronic kidney disease Care Plan Patient has chronic kidney disease No Rodrigez Panfilo Patient has chronic kidney disease Care Plan Patient has chronic kidney disease No Elia Panfilo Weekly blood pressure task Care Plan Weekly blood pressure task No Valentín Moreno PharmD Weekly blood pressure task Care Plan Weekly blood pressure task No Valentín Moreno PharmD Patient has chronic kidney disease Care Plan Patient has chronic kidney disease No Valentín Moreno PharmD Patient has chronic kidney disease Care Plan Patient has chronic kidney disease No Valentín Moreno PharmD Weekly blood pressure task Care Plan Weekly blood pressure task No Jose, Naye, OD Weekly blood pressure task Care Plan Weekly blood pressure task No Jose, Naye, OD Patient has chronic kidney disease Care Plan Patient has chronic kidney disease No Jose, Naye, OD Patient has chronic kidney disease Care Plan Patient has chronic kidney disease No Jose Naye, OD Weekly blood pressure task Care Plan Weekly blood pressure task No Phyllis Silva MD Weekly blood pressure task Care Plan Weekly blood pressure task No Phyllis Silva MD Patient has chronic kidney disease Care Plan Patient has chronic kidney disease No Phyllis Silva MD Patient has chronic kidney disease Care Plan Patient has chronic kidney disease No Phyllis Silva MD Weekly blood pressure task Care Plan Weekly blood pressure task No Nicolette Granado MA Weekly blood pressure task Care Plan Weekly blood pressure task No Nicolette Granado MA Patient has chronic kidney disease Care Plan Patient has chronic kidney disease No Nicolette Granado MA Patient has chronic kidney disease Care Plan Patient has chronic kidney disease No Nicolette Granado MA Procedures Procedure Name Priority Date/Time Associated Diagnosis Comments POCT GLYCOSYLATED HEMOGLOBIN (HGB A1C) Routine 06/25/2025 1:44 PM EST Type 2 diabetes mellitus without complication, without long-term current use of insulin (HCC) POCT GLUCOSE Routine 06/25/2025 1:43 PM EST Type 2 diabetes mellitus without complication, without long-term current use of insulin (HCC) BASIC METABOLIC PANEL Routine 06/07/2025 11:56 AM EDT BI MAMMOGRAM SCREEN W ILYA W IMPLANTS [...] Relevant to Health Maintenance Results * (ABNORMAL) POCT glycosylated hemoglobin (Hgb A1c) (06/25/2025 1:44 PM EST) Hemoglobin A1C 6.1(A) 4.0 - 5.7 % QC Media Lot # [id number] Lot# Expiration Date ,526 Blood Capillary blood specimen / Unknown 06/25/2025 1:44 PM EST us Phyllis Silva MD POINT OF CARE TEST ENTER/EDIT OR DERABLES Final Result * POCT glucose manually resulted (06/25/2025 1:43 PM EST) Glucose Blood, POC 93 60 - 200 mg/dL QC Media Lot # [id number] Lot# Expiration Date Blood Capillary blood specimen / Unknown 06/25/2025 1:43 PM EST Phyllis Silva MD POINT OF CARE TEST ENTER/EDIT OR DERABLES Final Result * (ABNORMAL) Basic Metabolic Panel (06/07/2025 11:56 AM EDT) Pathologist [facility] Sodium 142 135 - 145 mmol/L [facility] Potassium 4.4 3.3 - 5.1 mmol/L [facility] Chloride 108 96 - 108 mmol/L [facility] Carbon Dioxide 27 22 - 29 mmol/L [facility] Anion Gap 11(L) 12 - 20 [facility] Urea Nitrogen (BUN) 11 9 - 16 mg/dL [facility] Creatinine, Serum 0.68 0.5 - 1.4 mg/dL [facility] Estimated Glomerular Filt Rate >60 [facility] Comment:Chronic Kidney Disea se: Estimated GFR < 60 mL/min/1.42i2Bzsyct Kidney Disease: Estimated GFR < 15 mL/min/1.73m2 Glucose 134(H) 60 - 115 mg/dL [facility] Calcium 9.6 8.4 - 10.2 mg/dL [facility] 06/07/2025 11:5 6 AM EDT 06/07/2025 12:59 PM EDT Phyllis Silva MD LAB BLOOD ORDERABLES Final Resul t [facility] [address] [place] [address] [phone] * BI Mammogram Screen w/ Ilya w/ Implants Lewis (03/14/2025 12:45 PM EDT) Anatomical Region Laterality Modality Mammography 03/14/2025 12:4 5 PM EDT Narrative 03/26/2025 8:39 AM EDT [facility] [address] [place] [address] Mammography Report Signed Patient: Lilia Stewart MR#: [id number] 9 : 1975 Acct:[id number] Age/Sex: 50 / F ADM Date: 03/14/25 Loc: HO.MAMMO Attending Dr: Phyllis Silva MD Ordering Physician: Phyllis Silva MD Results: 1Negative Date of Service: 03/14/25 Follow Up: 1 Year From Orig inal Mammogram Procedure(s): MM tomosynthesis screen imp BI Accession Number(s): [id number] cc: Phyllis Silva MD EXAMINATION: MM SCREENING [...] 03/26/25 0836 DD/ 1245 TD/TT: 03/14/25 1300 Ground Hand: Procedure Note Donotuseinterpreter, Image - 03/26/2025 [facility] [address] [place], [place] [address] Mammography Report Signed Patient: Marvin Stewart#: [id number] 9 : 1975Acct:[id number] Age/Sex: 50 / FADM Date: 03/14/25 Loc: HO.MAMMO Attending Dr: Phylils Silva MD Ordering Physician: Phyllis Silva MDResults: 1Negative Date of Service: 03/14/25Follow Up: 1 Year From Orig inal Mammogram Procedure(s): MM tomosynthesis screen imp BI Accession Number(s): [id number] cc: Phyllis Silva MD EXAMINATION: MM SCREENING [...] 03/26/25 0836 DD/ 1245 TD/TT: 03/14/25 1300 [address] Hand: us Phyllis Silva MD IMG BI PROCEDURES Final Result * Albumin, Random Urine W/Creatinine (11/17/2024 9:57 AM EDT) Creatinine, Urine 266.67 mg/dL [facility] Microalbumin Urine 30.0 mg/L [facility] Microalbum Creatinine Ratio Ur 11.2 <30 ug/mg cr [facility] Comment:Albumin/Creatinine R atio Reference Ranges: Normal: < 30 ug/mg creatinine Microalbuminuria: 30 - 300 ug/mg creatinineClinical Albuminuria: > 300 ug/mg creatinine 11/17/2024 9:57 AM EDT 11/17/2024 10:56 AM EDT us Phyllis Silva MD LAB URINE ORDERABLES Final Resul t [facility] [address] [place] [phone] * Lipid Panel, Standard (11/17/2024 9:57 AM EDT) Triglycerides 123 <150 mg/dL [facility] Comment:Desirable Triglyceri de: less than 150 mg/dLBorderline High Triglyceride 150-199 mg/dLHigh Triglyceride: 200-499 mg/dLVery High Triglyceride: greater than or equal to 5OO mg/dL Cholesterol 144 <200 mg/dL [facility] Comment:Desirable Cholestero l: less than 200 mg/dLBorderline High Cholesterol: 200-239 mg/dLHigh Cholesterol: greater than 239 mg/dL LDL Cholesterol Calculated 74 <100 mg/dL [facility] Comment:Desirable LDL: less than 100 mg/dLNear Optimal/Above Optimal LDL: 110- 129 mg/dLBorderline High LDL: 130-159 mg/dLHigh LDL: 160-189 mg/dLVery High LDL: greater than or equal to 190 mg/dL HDL Cholesterol 46 >40 mg/dL [facility] Comment:Desirable HDL: great er than 40 mg/dL Note: This HDL assay may give artificially low results in patients with liver disease. 11/17/2024 9:57 AM EDT 11/17/2024 11:18 AM EDT us Phyllis Silva MD LAB BLOOD ORDERABLES Final Resul t [facility] [address] [place] [phone] * Pap Smear (02/03/2023 1:29 PM EDT) 02/03/2023 1:29 PM EDT 02/04/2023 8:20 AM EDT Narrative [facility] - 02/25/2023 12:56 PM EDT ----- ------- Name: Lilia Stewart Age/Sex: 48/F : 1975 Unit#: [id number] Attend Dr: Candido Deleon MD Re02/03/23 Status: DEP REF Location: [facility] Disch: ----- ------- SPEC : [id number] RECD: 02/04/23 STATUS: ROSLYN CARROLL NUM: [id number] RYAN: 02/03/23-[address] [facility] [address]: Candido Deleon MD ENTERED: 02/04/23 [...] 59, 66, 68) HPV testing performed by Shidonni, [place], [place]. See reference laboratory pion of the EMR for entire report. Clinical Information LMP: Postmenopausal Previous PAP test: 08/20/20, Unknown findings Other history: Postmenopausal bleeding Material Received ThinPrep-Cervical Copies To: Phyllis Silva MD [address] [place] [address] Candido Deleon MD [address] [place] [address] Dr. Ochoa [address] [place] [phone] ----- ------- Signed (signature on file) ASHWIN Pierre (ASCP) 02/25/23 1256 ----- ------- END OF REPORT [facility] External Provider LAB CYT OLOGY ORDERABLES Final Result [facility] [address] [place] [phone] [phone] * Hm Colonoscopy (09/08/2022) Colonoscopy 1 Historical Provider HEALTH MAINTENANCE Edited Result - Final * HEPATITIS C AB W/REFL TO HCV RNA, QN, PCR (12/13/2020 1:18 PM EDT) HEPATITIS C ANTIBODY NON-REACT MIQUEL NON-REACT MIQUEL [facility] INDEX 0.01 <1.00 [facility] Comment: HCV antibody was non-reactive. There is no laboratory evidence of HCV infection. In most cases, no further action is required. However, if recent HCV exposure is suspected, a test for HCV RNA (test code 10242) is suggested. For additional information please refer to [email or web address]/[email or web address] (This link is being provided for informational/ educational purposes only.) 12/13/2020 1:18 PM EDT Phyllis Silva MD HISTORICAL/NON ORDERABLE LABS Fi nal Result [facility] [address] * HIV 1/2 ANTIGEN/ANTIBODY,FOURTH GENERATION W/RFL (12/13/2020 1:18 PM EDT) HIV-1/2 ANTIGEN AND ANTIBODIES, 4TH GENERATION W/ REFLEX NON-REACT MIQUEL NON-REACT MIQUEL [facility] Comment: HIV-1 antigen and HIV-1/HIV-2 [...] purpose. For additional information please refer to http://Wowcracy.Game Closure/faq/GJL733 (This link is being provided for informational/ educational purposes only.) The performance of this assay has not been clinically validated in patients less than 2 years old. 12/13/2020 1:18 PM EDT Phyllis Silva MD LAB BLOOD ORDERABLES Final Resul t Performing Organization Address [facility] de Phone Number [facility] [address] * HPV mRNA E6/E7 (05/19/2016 1:45 PM EDT) HPV mRNA E6/E7 Not Detected NOT DETECTED [facility] Comment: This assay detects E6/E7 viral messenger RNA (mRNA) from 14 high-risk HPV types (16,18,31,33,35,39,45,51, 52,56,58,59,66,68). This test was performed using the APTIMA(R) TMA HPV Assay ([employer] For additional information, please refer to http://education.Game Closure/faq/JPT484n1 Test Performed by [employer] [facility], Shidonni [facility], [address] [place] [address] Julián Adams M.D., Ph.D., Director of Laboratories , [place] [id number] Please note: Effective 04/27/2016, HPV testing will be performed using [employer] APTIMA test which targets mRNA. Detecting mRNA instead of DNA, as in older methods, offers significant improvements in specificity. 05/19/2016 1:45 PM EDT Phyllis Silva MD HISTORICAL/NON ORDERABLE LABS Fi nal Result Performing Organization Address [facility] Co de Phone Number [facility] [address] from Last 3 Months or Most Recently Relevant to Health Maintenance Additional Health Concerns Active Problems Noted Date [...] kidney disease 07/03/2025 Weekly blood pressure task 07/05/2025 Weekly blood pressure task 07/05/2025 Patient has chronic kidney disease 07/05/2025 Patient has chronic kidney disease 07/05/2025 Insurance MEDICARE [facility] STANDARD Care Teams Shovel Logger Relationship Specialty Start Date End Date Phyllis Silva MD [address] [place] [id number] PCP - General Family Medicine 08/16/18
--- OUTSIDE RECORDS SUMMARY | 2025-07-10 18:02 | XMS_ITS | Encounter Summary ---
Author Organization [employer] Address [address] [place] [address] Care Team Providers Care Bike Designer Name Role Phone Phyllis Silva MD Primary Care Provider [phone] Valentín Moreno PharmD Unavailable [phone] Encounter Details Date Type Department Care Team (Late st Contact Info) Description 12/30/2023 Abstract [facility] [address] [place] [address] Phyllis Silva MD [address] [place], [place] [phone] Social History Tobacco Use Types Packs/Day Years [...] Anatomical Region Laterality Modality Other Historical Provider HEALTH MAINTENANCE Final Result documented in this encounter Visit Diagnoses Not on filedocumented in this encounter Additional Health Concerns Assessment Noted Time PHQ-9 Depression Total Score: 4 02/23/20 23 1:20 PM EDT documented as of this encounter Care Teams Bike Designer Relationship Specialty Start Date End Date Phyllis Silva MD [address] [place] [address] PCP - General Family Medicine 08/16/18 Valentín Moreno PharmD [address] [place] [address] Pharmacist Internal Medicine 05/25/23 07/03/25 documented as of this encounter
--- OUTSIDE RECORDS SUMMARY | 2025-07-10 18:02 | XMS_ITS | Encounter Summary ---
Author Organization [employer] Address [address] [facility] [address] [place] [address] Care Team Providers Care Electrical Plumbing Supervisor Name Role Phone Phyllis Silva MD Primary Care Provider Valentín Moreno PharmD Unavailable Reason for Referral * Consultation (Routine) - Closed Specialty Diagnoses / Procedures Referred By Contac t Referred To Contact Pharmacy Diagnoses Hypertension, unspecified type Type 2 diabetes mellitus without complication, without long-term current use of insulin (HCC) Phyllis Silva MD [address] [place] [address] Phone: tel: fax: Referral ID Status Reason Start Date Expiration Date V isits Requested Visits Authorized [id number] Closed Consult and Treat 06/27/2024 06/27/2025 6 6 Encounter Details Date Type Department Care Team (Late st Contact Info) Description 06/27/2024 Orders Only [facility] [address] [place] [id number] Phyllis Silva MD [address] [place] [phone] Hypertension, unspecified type (Primary Dx); Type 2 diabetes mellitus without complication, without long-term current use of insulin ([facility]) Social History Tobacco Use Types [...] complication, without long-term current use of insulin ([facility]) Ordered: 06/27/2024 documented as of [...] without long-term current use of insulin (HCC) documented in this encounter Additional Health Concerns Assessment Noted Time PHQ-9 Depression Total Score: 4 02/23/20 23 1:20 PM EDT documented as of this encounter Care Teams Electrical Plumbing Supervisor Relationship Specialty Start Date End Date Phyllis Silva MD [address] [place] [address] PCP - General Family Medicine 08/16/18 Valentín Moreno PharmD [address] [place] [address] Pharmacist Internal Medicine 05/25/23 07/03/25 documented as of this encounter
--- OUTSIDE RECORDS SUMMARY | 2025-07-10 18:02 | XMS_ITS | Encounter Summary ---
Author Organization [employer] Address [address] [facility] [address] [place] [address] Care Team Providers Care School Speech Therapist Name Role Phone Phyllis Silva MD Primary Care Provider [phone] Valentín Moreno PharmD Unavailable Encounter Details Date Type Department Care Team (Late st Contact Info) Description 10/06/2022 Orders Only [facility] [address] [place], [place] [phone] Lani Silver LPN Social History Tobacco Use [...] on filedocumented in this encounter Care Teams School Speech Therapist Relationship Specialty Start Date End Date Phyllis Silva MD [address] [place] [address] PCP - General Family Medicine 08/16/18 Valentín Moreno, PharmD [address] [place] [address] Pharmacist Internal Medicine 05/25/23 07/03/25 documented as of this encounter
== END 2025-07-10 14:07 | disposition home or self-care (01) ==
LOC: HO.HHCL 14:06
PROVIDERS: PCP Family Medicine; Visit Provider Family Medicine
DX: R10.13 Epigastric pain (principal)
CPT/HCPCS: 87338